=== PATIENT | female | born 1975 | race African-American/Black ===

== ENCOUNTER 2016-06-16 09:36 | Inpatient (IN) | payer OTHER ==
[~2016-06-16] VITALS: Ht 175.3 cm; Wt 94.4 kg
[~2016-06-16 09:36] MED LIST: ADVAIR 250/501 DISK IH; ADVAIR 500/501 DISK IH; ADVAIR HFA120 INHAL1 IH; ADVAIR HFA120 INHALA IH; AERONEB GO NEB1 EACH MC; ALBUTEROL INHALER; ALBUTEROL SULF8.5 GM IH; ALBUTEROL2.5 MG/3 M IH; ALPRAZOLAM0.25 M2 PO; AMOX TR-K CLV1 EAC4 PO; AMOXICILLIN500 M1 PO; ANAPROX DS550 M1 PO; ASPIR-TRIN325 M1 PO; ATARAX10 MG PO; AUGMENTIN875 MG PO; AZITHROMYCIN250 MG PO; AZITHROMYCIN500 M1 PO; BACTRIM,SEPT1 TABLET PO; BENZONATATE100 MG PO; CEFDINIR300 MG PO; CEFTIN500 MG PO; CEFUROXIME500 MG PO; CIPRO500 MG PO; CITRATE OF MAG296 ML PO; COLACE100 MG PO; DAILY VALUE1 EACH PO; DILAUDID2 MG PO; DOCUSATE SODIU100 MG PO; DOXYCYCLINE HY100 M3 PO; DUONEB 2.5-0.5 M3 ML AEROSOL; ENDOCET 5-3251 EACH PO; FERROCITE324 MG PO; FERROUS SULFAT325 MG PO; FLEXERIL10 MG PO; FLOMAX0.4 MG PO; FUROSEMIDE20 MG PO; GUAIFENESIN WI120 M1 PO; HYDROCODON-ACE1 EAC7 PO; HYDROXYZINE HCL10 MG PO; IRON325 M1 PO; IRON325 MG PO; KEFLEX500 MG PO; LEVAQUIN500 MG PO; LEVAQUIN750 MG PO; LEVOFLOXACIN750 MG PO; LISINOPRIL10 MG PO; LOPERAMIDE2 M1 PO; LORAZEPAM0.5 MG PO; LYRICA100 MG PO; LYRICA50 MG PO; MACROBID100 MG PO; MEDROL DOSEPAK4 MG PO; MELOXICAM15 MG PO; METFORMIN HCL500 M1 PO; METHADONE10 MG PO; MOBIC15 MG PO; MOTRIN800 MG PO; MULTIVITAMIN1 EAC2 PO; NAPROSYN500 MG PO; NAPROXEN500 MG PO; NARCAN4 MG NS; NICOTINE PATCH1 EAC1 TD; NORCO 7.5/321 TABLET PO; OXYCODONE HCL5 MG PO; OXYCODONE-ACET1 EACH PO; OxyCODONE PO; OxyCONTIN PO; PERCOCET 10/1 TABLET PO; PERCOCET 5/31 TABLET PO; PERCOCET 7.51 TABLET PO; PREDNISONE10 MG PO; PREDNISONE20 MG PO; PREDNISONE5 MG PO; PREDNISONE50 MG PO; PROAIR HFA8.5 GM IH; PROVENTIL,2.5 MG/0.5 IH; PROVENTIL,2.5 MG/3 M IH; PYRIDIUM100 MG PO; ROBITUSSIN DM118 ML PO; ROBITUSSIN100 MG/5 M PO; SERTRALINE HCL100 MG PO; SERTRALINE HCL50 MG PO; TESSALON200 MG PO; TIZANIDINE HCL4 M1 PO; TORADOL10 MG PO; TRAMADOL HCL50 MG PO; ULTRAM50 MG PO; VENTOLIN HFA18 GM IH; XANAX0.25 MG PO; ZANAFLEX4 M1 PO; ZITHROMAX Z-PA250 MG PO; ZITHROMAX250 MG PO; ZOFRAN ODT4 MG PO; ZOFRAN4 MG PO; ZOLOFT100 MG PO
[2016-06-16 10:18] LABS: HEMATOCRIT 35.1 % (36.0-46.0); MCHC 30.5 G/DL (30.0-36.0); MCV 85.2 FL (83-99); MEAN PLAT.VOLUME 11.8 uM^3 (9.5-12.4); PLATELET COUNT 234 K/uL (156-360); RBC DIS.WIDTH-CV 21.9 % (11.8-14.6); RBC DIS.WIDTH-SD 66.9 % (39-53); RED BLOOD COUNT 4.12 M/uL (3.80-5.20); WHITE BLOOD COUNT 4.9 K/uL (4.1-10.2)
[2016-06-16 10:20] LABS: BASOPHIL COUNT 0.1 K/uL (0-0.1); EOSINOPHIL (%) 3.5 % (0-5); EOSINOPHIL COUNT 0.2 K/uL (0-0.3); IMMATURE GRANULOCYTE (%) 0.2 % (0.0-0.7); IMMATURE GRANULOCYTE COUNT 0.1 K/uL; LYMPHOCYTE COUNT 0.9 K/uL (1.0-2.8); MONOCYTE (%) 10.4 % (3-12); MONOCYTE COUNT 0.5 K/uL (0-0.8); NEUTROPHIL COUNT 3.2 K/uL (1.8-6.4)
[2016-06-16 10:28] LABS: CHLORIDE 107 mEq/L (99-109); POTASSIUM 4.4 mEq/L (3.7-5.4); SODIUM 139 mEq/L (136-147)
[2016-06-16 10:29] LABS: MAGNESIUM 2.1 mg/dL (1.3-2.7)
[2016-06-16 10:30] LABS: GLUCOSE 98 mg/dL (70-99)
[2016-06-16 10:31] LABS: ANION GAP 8 MEQ/L (2-14)
[2016-06-16 10:32] LABS: PROTHROMBIN TIME 10.5 (9.2-11.2); PTT 32.4 (25-32)
[2016-06-16 10:34] LABS: GFR ESTIMATE (CALCULATED) > 59 mL/min/
[2016-06-16 10:35] LABS: UREA NITROGEN (BUN) 11 mg/dL (9-23)
[2016-06-16 10:43] LABS: TROP-I INTERPRETATION NEGATIVE; TROPONIN-I < 0.01 ng/mL (0.0-0.30)
[2016-06-16 12:17] LABS: INFLUENZA A VIRAL ANTIGEN NEGATIVE; INFLUENZA B VIRAL ANTIGEN NEGATIVE
[2016-06-16] MEDS ORDERED: PERCOCET 10/1 TABLET PO (13:09)
[2016-06-16] MEDS ORDERED: ADVAIR 250/501 DISK IH (13:09)
[2016-06-16 15:55] VITALS: BP 144/76
[2016-06-17] VITALS: BP 122/72
[2016-06-17 07:30] LABS: ANION GAP 6 MEQ/L (2-14); CHLORIDE 106 MEQ/L (99-109); GFR ESTIMATE (CALCULATED) > 59 mL/min/; GLUCOSE 117 mg/dL (70-99); SAMPLE HEMOLYSIS CHECK 0; SAMPLE ICTERIC CHECK 0; SAMPLE LIPEMIA CHECK 0; SODIUM 138 MEQ/L (136-147); UREA NITROGEN (BUN) 14 mg/dL (9-23)
[2016-06-17 07:43] LABS: HEMATOCRIT 36.1 % (36.0-46.0); MCH 26.2 PG (29.0-34.0); MCHC 30.5 G/DL (30.0-36.0); RBC DIS.WIDTH-CV 21.5 % (11.8-14.6); RBC DIS.WIDTH-SD 68.6 % (39-53)
[2016-06-17 07:44] LABS: WHITE BLOOD COUNT 2.8 K/uL (4.1-10.2)
[2016-06-17 08:00] VITALS: BP 131/67
[2016-06-17 08:04] LABS: MEAN PLAT.VOLUME 12.4 uM^3 (9.5-12.4); PLATELET COUNT 269 K/uL (156-360)
[2016-06-17 16:00] VITALS: BP 126/72
[2016-06-18] VITALS: BP 148/80
[2016-06-18 07:25] LABS: ANION GAP 7 MEQ/L (2-14); CHLORIDE 105 MEQ/L (99-109); GFR ESTIMATE (CALCULATED) > 59 mL/min/; GLUCOSE 133 mg/dL (70-99); POTASSIUM 4.4 MEQ/L (3.7-5.4); SAMPLE HEMOLYSIS CHECK 0; SAMPLE ICTERIC CHECK 0; SAMPLE LIPEMIA CHECK 0; SODIUM 138 MEQ/L (136-147); UREA NITROGEN (BUN) 17 mg/dL (9-23)
[2016-06-18 07:40] VITALS: BP 126/71
[2016-06-18 07:58] LABS: HEMATOCRIT 33.8 % (36.0-46.0); MCH 26.1 PG (29.0-34.0); MCHC 30.5 G/DL (30.0-36.0); MCV 85.8 FL (83-99); RBC DIS.WIDTH-CV 21.4 % (11.8-14.6); RBC DIS.WIDTH-SD 68.1 % (39-53); RED BLOOD COUNT 3.94 M/uL (3.80-5.20); WHITE BLOOD COUNT 14.8 K/uL (4.1-10.2)
[2016-06-18 08:12] LABS: MEAN PLAT.VOLUME 11.5 uM^3 (9.5-12.4); PLATELET COUNT 290 K/uL (156-360)
[2016-06-18 15:20] VITALS: BP 130/65
[2016-06-19 01:08] VITALS: BP 131/84
[2016-06-19 05:56] VITALS: BP 131/84
[2016-06-19 07:36] LABS: ANION GAP 7 MEQ/L (2-14); CHLORIDE 105 MEQ/L (99-109); GFR ESTIMATE (CALCULATED) > 59 mL/min/; GLUCOSE 106 mg/dL (70-99); POTASSIUM 4.2 MEQ/L (3.7-5.4); SAMPLE HEMOLYSIS CHECK 0; SAMPLE ICTERIC CHECK 0; SAMPLE LIPEMIA CHECK 0; SODIUM 140 MEQ/L (136-147); UREA NITROGEN (BUN) 18 mg/dL (9-23)
[2016-06-19 08:07] LABS: HEMATOCRIT 31.3 % (36.0-46.0); MCH 26.3 PG (29.0-34.0); MCV 84.8 FL (83-99); MEAN PLAT.VOLUME 12.1 uM^3 (9.5-12.4); PLATELET COUNT 282 K/uL (156-360); RBC DIS.WIDTH-CV 21.2 % (11.8-14.6); RBC DIS.WIDTH-SD 66.2 % (39-53); RED BLOOD COUNT 3.69 M/uL (3.80-5.20); WHITE BLOOD COUNT 12.6 K/uL (4.1-10.2)
[2016-06-19] MEDS ORDERED: NICOTINE PATCH1 EAC1 TD (09:23)
[2016-06-19] MEDS ORDERED: PREDNISONE20 MG PO (09:23)
[2016-06-19] MEDS ORDERED: BENZONATATE100 MG PO (09:23)
[2016-06-19] MEDS ORDERED: MONTELUKAST SOD10 MG PO (09:23)
== END 2016-06-19 13:30 | disposition home health service (06) | DRG 189 ==
LOC: EME → EDBD 09:36 → 5SOUTH 13:36 → EDOF 13:36 → 5SOUTH 15:08
PROVIDERS: Emergency Medicine; Internal Medicine; Physician Assistant
DX: J96.21 Acute and chronic respiratory failure with hypoxia (principal); J44.0 Chronic obstructive pulmonary disease with (acute) lower respiratory infection; J44.1 Chronic obstructive pulmonary disease with (acute) exacerbation; F33.9 Major depressive disorder, recurrent, unspecified; J45.41 Moderate persistent asthma with (acute) exacerbation; Z99.81 Dependence on supplemental oxygen; F17.210 Nicotine dependence, cigarettes, uncomplicated; D86.9 Sarcoidosis, unspecified; J20.8 Acute bronchitis due to other specified organisms; F41.9 Anxiety disorder, unspecified; I10 Essential (primary) hypertension; D64.9 Anemia, unspecified
CPT/HCPCS: 71010; 80048; 83735; 84484; 85025; 85027; 85610; 85730; 87040; 87502; 93005; 94640; 94640 76; 94799; 99202; 99281; 99285; J0456; J0696; J1644; J2270; J2930; J7050; J7512

== ENCOUNTER 2016-07-10 23:22 | Inpatient (IN) | payer OTHER ==
[~2016-07-10] VITALS: Ht 172.7 cm; Wt 97.7 kg
[~2016-07-10 23:22] MED LIST changes: +MONTELUKAST SOD10 MG PO
[2016-07-10 23:51] LABS: HEMATOCRIT 30.2 % (36.0-46.0); MCH 26.6 PG (29.0-34.0); MCHC 31.1 G/DL (30.0-36.0); MCV 85.6 FL (83-99); MEAN PLAT.VOLUME 10.7 uM^3 (9.5-12.4); PLATELET COUNT 266 K/uL (156-360); RBC DIS.WIDTH-CV 19.4 % (11.8-14.6); RBC DIS.WIDTH-SD 59.4 % (39-53); RED BLOOD COUNT 3.53 M/uL (3.80-5.20)
[2016-07-10 23:57] LABS: WHITE BLOOD COUNT 7.3 K/uL (4.1-10.2)
[2016-07-10 23:58] LABS: CHLORIDE 107 mEq/L (99-109); POTASSIUM 4.5 mEq/L (3.7-5.4); SODIUM 140 mEq/L (136-147)
[2016-07-11 00:01] LABS: GLUCOSE 76 mg/dL (70-99)
[2016-07-11 00:02] LABS: ANION GAP 7 MEQ/L (2-14)
[2016-07-11 00:03] LABS: TOTAL BILIRUBIN 0.4 mg/dL (0.0-1.0)
[2016-07-11 00:04] LABS: ALKALINE PHOSPHATASE 105 IU/L (3-129); GFR ESTIMATE (CALCULATED) > 59 mL/min/
[2016-07-11 00:05] LABS: UREA NITROGEN (BUN) 11 mg/dL (9-23)
[2016-07-11 00:08] LABS: TROP-I INTERPRETATION NEGATIVE; TROPONIN-I < 0.01 ng/mL (0.0-0.30)
[2016-07-11 00:13] LABS: QUANTITATIVE HCG < 4.0 MIU/ML
[2016-07-11 00:38] LABS: ANISOCYTOSIS 1+; HEMATOLOGY COMMENT 1 REV; MACROCYTES 1+; OVALOCYTES FEW; PLAT.SUFFICIENCY ADEQUATE
[2016-07-11 00:39] LABS: EOSINOPHIL (%) 3.4 % (0-5); EOSINOPHIL COUNT 0.3 K/uL (0-0.3); IMMATURE GRANULOCYTE (%) 0.1 % (0.0-0.7); IMMATURE GRANULOCYTE COUNT 0.1 K/uL; LYMPHOCYTE COUNT 1.8 K/uL (1.0-2.8); MONOCYTE (%) 13.2 % (3-12); NEUTROPHIL (%) 57.7 % (45-76); NEUTROPHIL COUNT 4.2 K/uL (1.8-6.4)
[2016-07-11 01:40] LABS: INFLUENZA A VIRAL ANTIGEN NEGATIVE; INFLUENZA B VIRAL ANTIGEN NEGATIVE
[2016-07-11 05:02] VITALS: BP 131/75
[2016-07-11 11:36] VITALS: BP 132/72
[2016-07-11 15:50] VITALS: BP 138/83
[2016-07-11 21:30] VITALS: BP 125/69
[2016-07-12 04:39] VITALS: BP 133/76
[2016-07-12 08:15] VITALS: BP 136/93
[2016-07-12] MEDS ORDERED: GUAIFENESIN WI120 M1 PO (10:27)
[2016-07-12] MEDS ORDERED: LEVOFLOXACIN750 MG PO (10:27)
[2016-07-12] MEDS ORDERED: PREDNISONE20 MG PO (10:27)
[2016-07-12 11:16] LABS: ANION GAP 10 MEQ/L (2-14); CHLORIDE 105 MEQ/L (99-109); GFR ESTIMATE (CALCULATED) > 59 mL/min/; SAMPLE HEMOLYSIS CHECK 0; SAMPLE ICTERIC CHECK 0; SAMPLE LIPEMIA CHECK 0; SODIUM 138 MEQ/L (136-147); UREA NITROGEN (BUN) 13 mg/dL (9-23)
[2016-07-12 11:18] LABS: GLUCOSE 119 mg/dL (70-99)
[2016-07-12] MEDS ORDERED: PROVENTIL,2.5 MG/3 M IH (11:18)
[2016-07-12 11:21] LABS: HEMATOCRIT 35.3 % (36.0-46.0); MCH 26.7 PG (29.0-34.0); MCHC 31.7 G/DL (30.0-36.0); MCV 84.2 FL (83-99); RBC DIS.WIDTH-CV 19.1 % (11.8-14.6); RBC DIS.WIDTH-SD 59.3 % (39-53); RED BLOOD COUNT 4.19 M/uL (3.80-5.20); WHITE BLOOD COUNT 14.5 K/uL (4.1-10.2)
[2016-07-12 11:35] LABS: MEAN PLAT.VOLUME 11.8 uM^3 (9.5-12.4); PLATELET COUNT 327 K/uL (156-360)
[2016-07-12 12:12] VITALS: BP 150/85
== END 2016-07-12 12:10 | disposition home or self-care (01) | DRG 191 ==
LOC: EME 23:22 → EDOF 07-11 02:14 → 5WEST 07-11 02:14
PROVIDERS: Emergency Medicine; Physician Assistant
DX: J44.0 Chronic obstructive pulmonary disease with (acute) lower respiratory infection (principal); J96.11 Chronic respiratory failure with hypoxia; Z99.81 Dependence on supplemental oxygen; J44.1 Chronic obstructive pulmonary disease with (acute) exacerbation; J20.9 Acute bronchitis, unspecified; I10 Essential (primary) hypertension; D50.9 Iron deficiency anemia, unspecified; D86.9 Sarcoidosis, unspecified; F17.210 Nicotine dependence, cigarettes, uncomplicated
CPT/HCPCS: 71020; 80048; 80053; 83880; 84484; 84702; 85025; 85027; 87070; 87205; 87502; 93005; 94640; 94640 76; 94799; 99202; 99281; 99285; J1644; J2930; J3010; J7030; J7512; J7644

== ENCOUNTER 2016-07-23 11:24 | Inpatient (IN) | payer OTHER ==
[~2016-07-23] VITALS: Ht 170.2 cm; Wt 96.0 kg
[2016-07-23 11:34] LABS: BASE EXCESS 1.9 mEq/L (-3 to +3); BICARBONATE 26.6 mEq/L (22-26); CARBOXY HGB 3.8 % (0-5); COMMENTS - BLOOD GASES A=C+; DEVICE NRBM; METHEMOGLOBIN 0.9 % (0-1.5); O2 FLOW 15 L/MIN; PCO2 41 mm Hg (35-45); PO2 389 mm Hg (80-100); SITE RR; pH 7.42 (7.35-7.45)
[2016-07-23 11:51] LABS: BASOPHIL COUNT 0.1 K/uL (0-0.1); EOSINOPHIL (%) 3.1 % (0-5); EOSINOPHIL COUNT 0.2 K/uL (0-0.3); HEMATOCRIT 27.6 % (36.0-46.0); LYMPHOCYTE COUNT 1.5 K/uL (1.0-2.8); MCH 25.4 PG (29.0-34.0); MCHC 30.1 G/DL (30.0-36.0); MCV 84.4 FL (83-99); MEAN PLAT.VOLUME 9.9 uM^3 (9.5-12.4); MONOCYTE (%) 12.2 % (3-12); MONOCYTE COUNT 0.6 K/uL (0-0.8); NEUTROPHIL (%) 53.7 % (45-76); NEUTROPHIL COUNT 2.6 K/uL (1.8-6.4); PLATELET COUNT 239 K/uL (156-360); RBC DIS.WIDTH-CV 19.4 % (11.8-14.6); RED BLOOD COUNT 3.27 M/uL (3.80-5.20); WHITE BLOOD COUNT 4.9 K/uL (4.1-10.2)
[2016-07-23 11:52] LABS: CHLORIDE 111 mEq/L (99-109); SODIUM 144 mEq/L (136-147)
[2016-07-23 11:54] LABS: GLUCOSE 97 mg/dL (70-99)
[2016-07-23 11:55] LABS: ANION GAP 5 MEQ/L (2-14)
[2016-07-23 11:58] LABS: GFR ESTIMATE (CALCULATED) > 59 mL/min/
[2016-07-23 11:59] LABS: UREA NITROGEN (BUN) 13 mg/dL (9-23)
[2016-07-23] MEDS ORDERED: CRANBERRY405 MG PO (13:09)
[2016-07-23] MEDS ORDERED: SEROQUEL12.5 MG PO (13:10)
[2016-07-23] MEDS ORDERED: METOPROLOL TART50 MG PO (13:10)
[2016-07-23] MEDS ORDERED: RANITIDINE HCL150 MG PO (13:11)
[2016-07-23] MEDS ORDERED: ALMACONE-2 LIQ355 ML PO (13:11)
[2016-07-23] MEDS ORDERED: HUMALOG100 UNIT/2 SC (13:13)
[2016-07-23] MEDS ORDERED: GAS RELIEF 8080 MG PO (13:13)
[2016-07-23] MEDS ORDERED: LEVOXYL125 MCG PO (13:14)
[2016-07-23] MEDS ORDERED: OMEPRAZOLE20 MG PO (13:14)
[2016-07-23] MEDS ORDERED: BUSPIRONE HCL5 MG PO (13:14)
[2016-07-23] MEDS ORDERED: OXYBUTYNIN CHLO10 MG PO (13:15)
[2016-07-23] MEDS ORDERED: ASPIRIN81 M2 PO (13:15)
[2016-07-23] MEDS ORDERED: CRESTOR10 MG PO (13:15)
[2016-07-23] MEDS ORDERED: OXYCODONE-APAP1 EACH PO (13:59)
[2016-07-23] MEDS ORDERED: SERTRALINE HCL100 MG PO (13:59)
[2016-07-23] MEDS ORDERED: ALBUTEROL2.5 MG/3 M IH (14:00)
[2016-07-23] MEDS ORDERED: LISINOPRIL10 MG PO (14:00)
[2016-07-23 15:00] LABS: IRON 13 MCG/DL (35-150); SAMPLE HEMOLYSIS CHECK 0; SAMPLE ICTERIC CHECK 0; SAMPLE LIPEMIA CHECK 1
[2016-07-23 15:42] LABS: INFLUENZA A VIRAL ANTIGEN NEGATIVE; INFLUENZA B VIRAL ANTIGEN NEGATIVE
[2016-07-23 15:58] LABS: FERRITIN 17 NG/ML (10-291)
[2016-07-23 16:21] LABS: ABSOLUTE RETICULOCYTE CT. 0.04 M/uL (0.02-0.08); RETICULOCYTE COUNT 1.2 % (0.5-1.8)
[2016-07-23 16:53] LABS: HEMATOLOGY COMMENT 1 SMEAR COMPATIBLE; PLAT.SUFFICIENCY ADEQUATE; USER ID NPD
[2016-07-23 18:43] VITALS: BP 136/70
[2016-07-23 23:34] VITALS: BP 138/74
[2016-07-23 23:40] VITALS: BP 131/69
[2016-07-24 03:26] VITALS: BP 121/69
[2016-07-24 07:25] VITALS: BP 129/76
[2016-07-24 08:41] LABS: EOSINOPHIL (%) 0 % (0-5); HEMATOCRIT 28.1 % (36.0-46.0); IMMATURE GRANULOCYTE (%) 0.2 % (0.0-0.7); IMMATURE GRANULOCYTE COUNT 0.2 K/uL; LYMPHOCYTE COUNT 0.9 K/uL (1.0-2.8); MCH 25.4 PG (29.0-34.0); MCHC 30.6 G/DL (30.0-36.0); MCV 82.9 FL (83-99); MEAN PLAT.VOLUME 11.7 uM^3 (9.5-12.4); MONOCYTE (%) 0.8 % (3-12); MONOCYTE COUNT 0.1 K/uL (0-0.8); NEUTROPHIL (%) 88.6 % (45-76); NEUTROPHIL COUNT 8.1 K/uL (1.8-6.4); PLATELET COUNT 228 K/uL (156-360); RBC DIS.WIDTH-CV 19.3 % (11.8-14.6); RBC DIS.WIDTH-SD 56.1 % (39-53); RED BLOOD COUNT 3.39 M/uL (3.80-5.20)
[2016-07-24 08:43] LABS: ALKALINE PHOSPHATASE 82 IU/L (3-129); ANION GAP 7 MEQ/L (2-14); CHLORIDE 106 MEQ/L (99-109); GFR ESTIMATE (CALCULATED) > 59 mL/min/; GLUCOSE 143 mg/dL (70-99); POTASSIUM 4.5 MEQ/L (3.7-5.4); SAMPLE HEMOLYSIS CHECK 0; SAMPLE ICTERIC CHECK 0; SAMPLE LIPEMIA CHECK 0; SODIUM 138 MEQ/L (136-147); TOTAL BILIRUBIN 0.3 MG/DL (0.0-1.0); UREA NITROGEN (BUN) 12 mg/dL (9-23); WHITE BLOOD COUNT 9.1 K/uL (4.1-10.2)
[2016-07-24 11:48] VITALS: BP 135/67
[2016-07-24 15:34] VITALS: BP 131/75
[2016-07-24 19:15] VITALS: BP 139/73
[2016-07-24 22:48] VITALS: BP 125/70
[2016-07-25 03:29] VITALS: BP 139/91
[2016-07-25 07:35] LABS: ANION GAP 8 MEQ/L (2-14); CHLORIDE 106 MEQ/L (99-109); POTASSIUM 4.6 MEQ/L (3.7-5.4); SAMPLE HEMOLYSIS CHECK 0; SAMPLE ICTERIC CHECK 0; SAMPLE LIPEMIA CHECK 0; SODIUM 139 MEQ/L (136-147)
[2016-07-25 07:41] LABS: GFR ESTIMATE (CALCULATED) > 59 mL/min/; GLUCOSE 115 mg/dL (70-99); UREA NITROGEN (BUN) 18 mg/dL (9-23)
[2016-07-25 07:57] LABS: EOSINOPHIL (%) 0 % (0-5); HEMATOCRIT 27.6 % (36.0-46.0); IMMATURE GRANULOCYTE (%) 0.3 % (0.0-0.7); IMMATURE GRANULOCYTE COUNT 0.1 K/uL; LYMPHOCYTE COUNT 1.2 K/uL (1.0-2.8); MCH 25.5 PG (29.0-34.0); MCHC 31.2 G/DL (30.0-36.0); MCV 81.9 FL (83-99); MEAN PLAT.VOLUME 10.8 uM^3 (9.5-12.4); MONOCYTE (%) 1.8 % (3-12); MONOCYTE COUNT 0.4 K/uL (0-0.8); NEUTROPHIL (%) 92.1 % (45-76); NEUTROPHIL COUNT 18.4 K/uL (1.8-6.4); PLATELET COUNT 231 K/uL (156-360); RBC DIS.WIDTH-CV 19.7 % (11.8-14.6); RED BLOOD COUNT 3.37 M/uL (3.80-5.20)
[2016-07-25 08:45] VITALS: BP 130/75
[2016-07-25 12:24] VITALS: BP 130/81
[2016-07-25 16:35] VITALS: BP 127/82
[2016-07-25 19:35] VITALS: BP 128/71
[2016-07-25 23:31] VITALS: BP 127/66
[2016-07-26 03:15] VITALS: BP 136/79
[2016-07-26 06:28] LABS: HEMATOCRIT 28.8 % (36.0-46.0); MCH 25.4 PG (29.0-34.0); MCHC 30.6 G/DL (30.0-36.0); PLATELET COUNT 276 K/uL (156-360); RBC DIS.WIDTH-CV 20.3 % (11.8-14.6); RBC DIS.WIDTH-SD 60.6 % (39-53); RED BLOOD COUNT 3.47 M/uL (3.80-5.20); WHITE BLOOD COUNT 16.3 K/uL (4.1-10.2)
[2016-07-26 06:37] LABS: EOSINOPHIL (%) 0 % (0-5); IMMATURE GRANULOCYTE (%) 0.4 % (0.0-0.7); IMMATURE GRANULOCYTE COUNT 0.1 K/uL; LYMPHOCYTE COUNT 1.2 K/uL (1.0-2.8); MONOCYTE (%) 4.2 % (3-12); MONOCYTE COUNT 0.7 K/uL (0-0.8); NEUTROPHIL COUNT 14.3 K/uL (1.8-6.4)
[2016-07-26 07:04] LABS: ANION GAP 3 MEQ/L (2-14); CHLORIDE 105 MEQ/L (99-109); GFR ESTIMATE (CALCULATED) > 59 mL/min/; GLUCOSE 101 mg/dL (70-99); POTASSIUM 4.6 MEQ/L (3.7-5.4); SAMPLE HEMOLYSIS CHECK 0; SAMPLE ICTERIC CHECK 0; SAMPLE LIPEMIA CHECK 0; SODIUM 138 MEQ/L (136-147); UREA NITROGEN (BUN) 14 mg/dL (9-23)
[2016-07-26 08:30] VITALS: BP 140/80
[2016-07-26] MEDS ORDERED: ADVAIR HFA120 INHALA IH (10:53)
[2016-07-26] MEDS ORDERED: SPIRIVA RESPIMAT4 GM IH (10:53)
[2016-07-26] MEDS ORDERED: PREDNISONE10 MG PO (10:53)
[2016-07-26] MEDS ORDERED: MONTELUKAST SOD10 MG PO (10:53)
[2016-07-26] MEDS ORDERED: FERROUS SULFAT325 MG PO (10:53)
[2016-07-26] MEDS ORDERED: AUGMENTIN500 MG PO (10:53)
[2016-07-26] MEDS ORDERED: LISINOPRIL10 MG PO (11:25)
== END 2016-07-26 14:53 | disposition home or self-care (01) | DRG 190 ==
LOC: EME → EDBD 11:24 → 2EAST 14:04 → EDOF 14:04 → 2EAST 18:15
PROVIDERS: Emergency Medicine; Hospitalist; Internal Medicine
DX: J44.0 Chronic obstructive pulmonary disease with (acute) lower respiratory infection (principal); J96.21 Acute and chronic respiratory failure with hypoxia; J45.51 Severe persistent asthma with (acute) exacerbation; J98.11 Atelectasis; J20.9 Acute bronchitis, unspecified; I10 Essential (primary) hypertension; D50.9 Iron deficiency anemia, unspecified; D86.0 Sarcoidosis of lung; F17.210 Nicotine dependence, cigarettes, uncomplicated; R59.1 Generalized enlarged lymph nodes; Z99.81 Dependence on supplemental oxygen; Z88.5 Allergy status to narcotic agent
CPT/HCPCS: 36600; 71010; 71275; 80048; 80053; 82607; 82728; 82746; 82803; 83540; 83735; 84466; 85025; 85045; 87070; 87205; 87502; 93005; 94640; 94640 76; 94644; 94760; 94799; 99202; 99281; 99285; J0456; J0696; J1100; J1644; J2405; J2920; J2930; J7050; J7644

== ENCOUNTER 2016-07-29 11:08 | Emergency (ER) | payer OTHER ==
[~2016-07-29] VITALS: Ht 172.7 cm; Wt 95.5 kg
[~2016-07-29 11:08] MED LIST changes: +ALMACONE-2 LIQ355 ML PO; +ASPIRIN81 M2 PO; +AUGMENTIN500 MG PO; +BUSPIRONE HCL5 MG PO; +CRANBERRY405 MG PO; +CRESTOR10 MG PO; +GAS RELIEF 8080 MG PO; +HUMALOG100 UNIT/2 SC; +LEVOXYL125 MCG PO; +METOPROLOL TART50 MG PO; +OMEPRAZOLE20 MG PO; +OXYBUTYNIN CHLO10 MG PO; +OXYCODONE-APAP1 EACH PO; +RANITIDINE HCL150 MG PO; +SEROQUEL12.5 MG PO; +SPIRIVA RESPIMAT4 GM IH
[2016-07-29 12:00] LABS: CARBON DIOXIDE (BICARBONATE) 32.5 MEQ/L (20-31)
[2016-07-29 12:03] LABS: HEMATOCRIT 29.8 % (36.0-46.0); MCH 25.8 PG (29.0-34.0); MCHC 30.5 G/DL (30.0-36.0); MCV 84.4 FL (83-99); MEAN PLAT.VOLUME 10.8 uM^3 (9.5-12.4); PLATELET COUNT 250 K/uL (156-360); RBC DIS.WIDTH-CV 20.4 % (11.8-14.6); RBC DIS.WIDTH-SD 60.5 % (39-53); RED BLOOD COUNT 3.53 M/uL (3.80-5.20)
[2016-07-29 12:08] LABS: CHLORIDE 105 mEq/L (99-109); POTASSIUM 3.9 mEq/L (3.7-5.4); SODIUM 139 mEq/L (136-147)
[2016-07-29 12:11] LABS: GLUCOSE 92 mg/dL (70-99)
[2016-07-29 12:12] LABS: ANION GAP 6 MEQ/L (2-14)
[2016-07-29 12:13] LABS: TOTAL BILIRUBIN 0.7 mg/dL (0.0-1.0)
[2016-07-29 12:14] LABS: ALKALINE PHOSPHATASE 92 IU/L (3-129); GFR ESTIMATE (CALCULATED) > 59 mL/min/
[2016-07-29 12:27] LABS: UREA NITROGEN (BUN) 22 mg/dL (9-23); WHITE BLOOD COUNT 8.1 K/uL (4.1-10.2)
[2016-07-29 16:22] LABS: INFLUENZA A VIRAL ANTIGEN NEGATIVE; INFLUENZA B VIRAL ANTIGEN POSITIVE
[2016-07-29] MEDS ORDERED: TRAMADOL HCL50 MG PO (16:43)
[2016-07-29] MEDS ORDERED: DOXYCYCLINE HY100 MG PO (16:43)
[2016-07-29] MEDS ORDERED: TESSALON PERLE100 MG PO (16:43)
[2016-07-29 17:30] VITALS: BP 125/75
== END 2016-07-29 17:31 | disposition home or self-care (01) ==
LOC: EME → EDBD 11:08 → EME 11:08
PROVIDERS: Nurse Practitioner Family
DX: J10.1 Influenza due to other identified influenza virus with other respiratory manifestations (principal); J44.1 Chronic obstructive pulmonary disease with (acute) exacerbation; J45.909 Unspecified asthma, uncomplicated; Z99.81 Dependence on supplemental oxygen; Z87.891 Personal history of nicotine dependence; E83.51 Hypocalcemia
CPT/HCPCS: 71020; 80053; 82803; 85027; 87502; 94640; 94640 76; 99281; 99283; J7512; J7644

== ENCOUNTER 2016-08-06 04:24 | Emergency (ER) | payer OTHER ==
[~2016-08-06] VITALS: Ht 172.7 cm; Wt 103.3 kg
[~2016-08-06 04:24] MED LIST changes: +DOXYCYCLINE HY100 MG PO; +TESSALON PERLE100 MG PO
[2016-08-06] MEDS ORDERED: MEDROL DOSEPAK4 MG PO (05:46)
[2016-08-06 06:19] VITALS: BP 132/86
== END 2016-08-06 06:20 | disposition home or self-care (01) ==
LOC: EME 04:24
DX: J45.901 Unspecified asthma with (acute) exacerbation (principal); J44.9 Chronic obstructive pulmonary disease, unspecified; D86.9 Sarcoidosis, unspecified; F17.200 Nicotine dependence, unspecified, uncomplicated
CPT/HCPCS: 94640; 99281; 99284; J7512; J7644

== ENCOUNTER 2016-08-22 01:19 | Inpatient (IN) | payer OTHER ==
[~2016-08-22] VITALS: Ht 172.7 cm; Wt 95.8 kg
[2016-08-22 01:45] LABS: BASE EXCESS 3.8 mEq/L (-3 to +3); BICARBONATE 27.7 mEq/L (22-26); CARBOXY HGB 2.6 % (0-5); COMMENTS - BLOOD GASES A+C+; METHEMOGLOBIN 0.9 % (0-1.5); O2 FLOW 2 L/MIN; PCO2 38 mm Hg (35-45); PO2 57 mm Hg (80-100); SITE RR; pH 7.47 (7.35-7.45)
[2016-08-22 01:46] LABS: DEVICE NC; TOTAL RESP RATE 22 resp/min
[2016-08-22 01:48] LABS: HEMATOCRIT 31.6 % (36.0-46.0); MCH 24.4 PG (29.0-34.0); MCHC 29.7 G/DL (30.0-36.0); MCV 82.1 FL (83-99); MEAN PLAT.VOLUME 10.6 uM^3 (9.5-12.4); PLATELET COUNT 281 K/uL (156-360); RBC DIS.WIDTH-CV 18.6 % (11.8-14.6); RBC DIS.WIDTH-SD 55.1 % (39-53); RED BLOOD COUNT 3.85 M/uL (3.80-5.20)
[2016-08-22 01:50] LABS: WHITE BLOOD COUNT 5.1 K/uL (4.1-10.2)
[2016-08-22 01:57] LABS: CHLORIDE 108 mEq/L (99-109); POTASSIUM 3.5 mEq/L (3.7-5.4); SODIUM 141 mEq/L (136-147)
[2016-08-22 01:59] LABS: GLUCOSE 90 mg/dL (70-99)
[2016-08-22 02:00] LABS: ANION GAP 8 MEQ/L (2-14)
[2016-08-22 02:01] LABS: TOTAL BILIRUBIN 0.3 mg/dL (0.0-1.0)
[2016-08-22 02:02] LABS: ALKALINE PHOSPHATASE 109 IU/L (3-129)
[2016-08-22 02:03] LABS: GFR ESTIMATE (CALCULATED) > 59 mL/min/
[2016-08-22 02:04] LABS: UREA NITROGEN (BUN) 12 mg/dL (9-23)
[2016-08-22 02:08] LABS: TROP-I INTERPRETATION NEGATIVE; TROPONIN-I 0.02 ng/mL (0.0-0.30)
[2016-08-22 04:33] LABS: BASE EXCESS 0.3 mEq/L (-3 to +3); BICARBONATE 25.4 mEq/L (22-26); CARBOXY HGB 1.9 % (0-5); PCO2 42 mm Hg (35-45); PO2 157 mm Hg (80-100); SITE RR; pH 7.39 (7.35-7.45)
[2016-08-22 04:34] LABS: COMMENTS - BLOOD GASES A+C+; DEVICE HHFNC; FI02 60 %; O2 FLOW 30 L/MIN; TOTAL RESP RATE 20 resp/min
[2016-08-22 05:55] VITALS: BP 140/97
[2016-08-22 07:34] LABS: TROP-I INTERPRETATION NEGATIVE; TROPONIN-I < 0.01 ng/mL (0.0-0.30)
[2016-08-22 08:10] VITALS: BP 144/76
[2016-08-22] MEDS ORDERED: FERROUS SULFAT325 MG PO (10:58)
[2016-08-22] MEDS ORDERED: ADVAIR HFA120 INHALA IH (11:05)
[2016-08-22 11:43] LABS: TROP-I INTERPRETATION NEGATIVE; TROPONIN-I 0.01 ng/mL (0.0-0.30)
[2016-08-22 12:01] VITALS: BP 145/82
[2016-08-22 16:56] VITALS: BP 139/86
[2016-08-22 19:00] VITALS: BP 132/86
[2016-08-23] VITALS: BP 120/68
[2016-08-23 04:00] VITALS: BP 128/86
[2016-08-23 07:02] LABS: EOSINOPHIL (%) 0 % (0-5); HEMATOCRIT 30.6 % (36.0-46.0); IMMATURE GRANULOCYTE (%) 0.6 % (0.0-0.7); IMMATURE GRANULOCYTE COUNT 0.1 K/uL; INSTRUMENT ABS NEUTROPHIL CT 12.3 K/uL; LYMPHOCYTE COUNT 1.2 K/uL (1.0-2.8); MCH 24.3 PG (29.0-34.0); MCHC 29.7 G/DL (30.0-36.0); MCV 81.8 FL (83-99); MEAN PLAT.VOLUME 11.3 uM^3 (9.5-12.4); MONOCYTE (%) 1.3 % (3-12); MONOCYTE COUNT 0.2 K/uL (0-0.8); NEUTROPHIL (%) 89.2 % (45-76); NEUTROPHIL COUNT 12.3 K/uL (1.8-6.4); PLATELET COUNT 340 K/uL (156-360); RBC DIS.WIDTH-CV 18.5 % (11.8-14.6); RBC DIS.WIDTH-SD 55.4 % (39-53); RED BLOOD COUNT 3.74 M/uL (3.80-5.20)
[2016-08-23 07:06] LABS: WHITE BLOOD COUNT 13.8 K/uL (4.1-10.2)
[2016-08-23 07:09] LABS: ANION GAP 7 MEQ/L (2-14); CHLORIDE 106 MEQ/L (99-109); GFR ESTIMATE (CALCULATED) > 59 mL/min/; GLUCOSE 128 mg/dL (70-99); SAMPLE HEMOLYSIS CHECK 0; SAMPLE ICTERIC CHECK 0; SAMPLE LIPEMIA CHECK 0; SODIUM 139 MEQ/L (136-147); UREA NITROGEN (BUN) 11 mg/dL (9-23)
[2016-08-23 07:16] LABS: POTASSIUM 4.5 MEQ/L (3.7-5.4)
[2016-08-23 08:15] VITALS: BP 134/88
[2016-08-23 08:24] LABS: ALKALINE PHOSPHATASE 87 IU/L (3-129); TOTAL BILIRUBIN 0.4 MG/DL (0.0-1.0)
[2016-08-23 15:52] VITALS: BP 126/70
[2016-08-23 19:00] VITALS: BP 142/78
[2016-08-23 23:51] VITALS: BP 135/78
[2016-08-24 04:43] VITALS: BP 146/83
[2016-08-24 08:00] VITALS: BP 116/58
[2016-08-24 08:17] LABS: EOSINOPHIL (%) 0 % (0-5); HEMATOCRIT 32.4 % (36.0-46.0); IMMATURE GRANULOCYTE (%) 0.9 % (0.0-0.7); IMMATURE GRANULOCYTE COUNT 0.2 K/uL; INSTRUMENT ABS NEUTROPHIL CT 15.2 K/uL; LYMPHOCYTE COUNT 1.1 K/uL (1.0-2.8); MCH 24.3 PG (29.0-34.0); MCHC 29.6 G/DL (30.0-36.0); MEAN PLAT.VOLUME 11.6 uM^3 (9.5-12.4); MONOCYTE (%) 2.4 % (3-12); MONOCYTE COUNT 0.4 K/uL (0-0.8); NEUTROPHIL (%) 89.9 % (45-76); NEUTROPHIL COUNT 15.2 K/uL (1.8-6.4); PLATELET COUNT 423 K/uL (156-360); RBC DIS.WIDTH-CV 18.6 % (11.8-14.6); RBC DIS.WIDTH-SD 55.7 % (39-53); RED BLOOD COUNT 3.95 M/uL (3.80-5.20); WHITE BLOOD COUNT 16.9 K/uL (4.1-10.2)
[2016-08-24 08:39] LABS: ANION GAP 9 MEQ/L (2-14); CHLORIDE 104 MEQ/L (99-109); GFR ESTIMATE (CALCULATED) > 59 mL/min/; GLUCOSE 105 mg/dL (70-99); POTASSIUM 4.1 MEQ/L (3.7-5.4); SAMPLE HEMOLYSIS CHECK 0; SAMPLE ICTERIC CHECK 0; SAMPLE LIPEMIA CHECK 0; SODIUM 139 MEQ/L (136-147); UREA NITROGEN (BUN) 20 mg/dL (9-23)
[2016-08-24] MEDS ORDERED: AZITHROMYCIN500 M1 PO (11:12)
[2016-08-24] MEDS ORDERED: CEFTIN500 MG PO (11:12)
[2016-08-24] MEDS ORDERED: PREDNISONE10 MG PO (11:12)
[2016-08-24] MEDS ORDERED: ALPRAZOLAM0.25 M2 PO (11:12)
[2016-08-24 12:00] VITALS: BP 120/56
== END 2016-08-24 17:48 | disposition home or self-care (01) | DRG 189 ==
LOC: EME → EDBD 01:19 → EME 01:19 → EDOF 03:14 → 2EAST 03:14
PROVIDERS: Emergency Medicine; Hospitalist
DX: J96.21 Acute and chronic respiratory failure with hypoxia (principal); Z99.81 Dependence on supplemental oxygen; J44.0 Chronic obstructive pulmonary disease with (acute) lower respiratory infection; J44.1 Chronic obstructive pulmonary disease with (acute) exacerbation; J45.901 Unspecified asthma with (acute) exacerbation; R94.31 Abnormal electrocardiogram [ECG] [EKG]; D86.9 Sarcoidosis, unspecified; G89.29 Other chronic pain; F17.210 Nicotine dependence, cigarettes, uncomplicated; J20.9 Acute bronchitis, unspecified; Z91.19 Patient's noncompliance with other medical treatment and regimen; I10 Essential (primary) hypertension; R07.81 Pleurodynia; D50.9 Iron deficiency anemia, unspecified; E87.6 Hypokalemia
CPT/HCPCS: 36600; 71010; 71275; 80048; 80053; 82803; 83605; 84484; 85025; 85027; 87040; 87070; 87205; 93005; 94640; 94640 76; 94644; 94760; 94799; 99202; 99281; 99283; J0696; J1100; J1644; J2920; J2930; J3475; J7030; J7050; J7644

== ENCOUNTER 2016-08-30 21:45 | Inpatient (IN) | payer OTHER ==
[~2016-08-30] VITALS: Ht 172.7 cm; Wt 97.9 kg
[2016-08-30 22:44] LABS: HEMATOCRIT 29.1 % (36.0-46.0); MCH 24.6 PG (29.0-34.0); MCHC 29.6 G/DL (30.0-36.0); MCV 83.1 FL (83-99); MEAN PLAT.VOLUME 10.6 uM^3 (9.5-12.4); PLATELET COUNT 533 K/uL (156-360); RBC DIS.WIDTH-CV 19.1 % (11.8-14.6); RBC DIS.WIDTH-SD 57.1 % (39-53)
[2016-08-30 22:46] LABS: WHITE BLOOD COUNT 6.5 K/uL (4.1-10.2)
[2016-08-30 22:52] LABS: CHLORIDE 102 mEq/L (99-109); POTASSIUM 4.5 mEq/L (3.7-5.4); SODIUM 138 mEq/L (136-147)
[2016-08-30 22:54] LABS: D-DIMER ELISA 0.42 mg/L FEU (< 0.57); GLUCOSE 75 mg/dL (70-99); INTER. NORMALIZED RATIO 1.1; PROTHROMBIN TIME 10.7 (9.2-11.2); PTT 27.5 (25-32)
[2016-08-30 22:55] LABS: ANION GAP 10 MEQ/L (2-14)
[2016-08-30 22:56] LABS: TROP-I INTERPRETATION NEGATIVE; TROPONIN-I < 0.01 ng/mL (0.0-0.30)
[2016-08-30 22:58] LABS: GFR ESTIMATE (CALCULATED) > 59 mL/min/
[2016-08-30 22:59] LABS: UREA NITROGEN (BUN) 18 mg/dL (9-23)
[2016-08-31] VITALS (7 sets, daily range): BP systolic 120–137; BP diastolic 64–76
[2016-08-31] MEDS ORDERED: SPIRIVA1 INHALATI IH (00:18)
[2016-08-31] MEDS ORDERED: PREDNISONE10 MG PO (00:21)
[2016-08-31 02:18] LABS: INFLUENZA A VIRAL ANTIGEN NEGATIVE; INFLUENZA B VIRAL ANTIGEN NEGATIVE
[2016-08-31 06:44] LABS: HEMATOCRIT 30.8 % (36.0-46.0); MCH 24.2 PG (29.0-34.0); MCHC 29.2 G/DL (30.0-36.0); MCV 82.8 FL (83-99); MEAN PLAT.VOLUME 11.6 uM^3 (9.5-12.4); PLATELET COUNT 613 K/uL (156-360); RBC DIS.WIDTH-CV 19.2 % (11.8-14.6); RBC DIS.WIDTH-SD 57.2 % (39-53); RED BLOOD COUNT 3.72 M/uL (3.80-5.20); WHITE BLOOD COUNT 5.7 K/uL (4.1-10.2)
[2016-08-31 07:29] LABS: ANION GAP 6 MEQ/L (2-14); CHLORIDE 103 MEQ/L (99-109); GFR ESTIMATE (CALCULATED) > 59 mL/min/; SAMPLE HEMOLYSIS CHECK 0; SAMPLE ICTERIC CHECK 0; SAMPLE LIPEMIA CHECK 0; SODIUM 138 MEQ/L (136-147); UREA NITROGEN (BUN) 15 mg/dL (9-23)
[2016-08-31 07:31] LABS: GLUCOSE 180 mg/dL (70-99); POTASSIUM 5.5 MEQ/L (3.7-5.4)
[2016-09-01 04:02] VITALS: BP 119/60
[2016-09-01 07:18] LABS: HEMATOCRIT 30.2 % (36.0-46.0); MCH 24.1 PG (29.0-34.0); MCHC 29.5 G/DL (30.0-36.0); MCV 81.8 FL (83-99); MEAN PLAT.VOLUME 10.7 uM^3 (9.5-12.4); NRBC (%) 0.1 /100 WBC (0-0); PLATELET COUNT 617 K/uL (156-360); RBC DIS.WIDTH-CV 18.8 % (11.8-14.6); RED BLOOD COUNT 3.69 M/uL (3.80-5.20)
[2016-09-01 07:19] LABS: WHITE BLOOD COUNT 14.6 K/uL (4.1-10.2)
[2016-09-01 07:37] LABS: ANION GAP 6 MEQ/L (2-14); CHLORIDE 102 MEQ/L (99-109); GFR ESTIMATE (CALCULATED) > 59 mL/min/; GLUCOSE 161 mg/dL (70-99); SAMPLE HEMOLYSIS CHECK 0; SAMPLE ICTERIC CHECK 0; SAMPLE LIPEMIA CHECK 0; SODIUM 136 MEQ/L (136-147); UREA NITROGEN (BUN) 18 mg/dL (9-23)
[2016-09-01 07:45] VITALS: BP 124/79
[2016-09-01 13:26] LABS: BASE EXCESS 4.5 mEq/L (-3 to +3); BICARBONATE 31.3 mEq/L (22-26); CARBOXY HGB 2.2 % (0-5); METHEMOGLOBIN 1.8 % (0-1.5); PCO2 58 mm Hg (35-45); PO2 75 mm Hg (80-100); SITE RR; pH 7.34 (7.35-7.45)
[2016-09-01 13:27] LABS: COMMENTS - BLOOD GASES A+C+; DEVICE NC; O2 FLOW 3 L/MIN; TOTAL RESP RATE 15 resp/min
[2016-09-01 15:38] LABS: BASE EXCESS 5.6 mEq/L (-3 to +3); BICARBONATE 32.2 mEq/L (22-26); CARBOXY HGB 2.1 % (0-5); METHEMOGLOBIN 1.8 % (0-1.5); PCO2 57 mm Hg (35-45); PO2 72 mm Hg (80-100); pH 7.36 (7.35-7.45)
[2016-09-01 15:41] LABS: COMMENTS - BLOOD GASES A+C+; SITE LR; TOTAL RESP RATE 18 resp/min
[2016-09-01 15:42] LABS: DEVICE BIPAP
[2016-09-01 15:55] VITALS: BP 128/78
[2016-09-01 20:00] VITALS: BP 120/64
[2016-09-01 23:41] VITALS: BP 118/76
[2016-09-02 03:49] VITALS: BP 115/58
[2016-09-02 07:30] VITALS: BP 135/85
[2016-09-02 11:15] VITALS: BP 139/74
[2016-09-02 16:01] VITALS: BP 134/73
[2016-09-02 20:45] VITALS: BP 134/61
[2016-09-02 23:05] VITALS: BP 120/81
[2016-09-03 03:15] VITALS: BP 158/78
[2016-09-03 07:10] LABS: HEMATOCRIT 33.9 % (36.0-46.0); MCH 24.2 PG (29.0-34.0); MCHC 29.5 G/DL (30.0-36.0); MCV 81.9 FL (83-99); MEAN PLAT.VOLUME 11.5 uM^3 (9.5-12.4); PLATELET COUNT 619 K/uL (156-360); RBC DIS.WIDTH-CV 19.5 % (11.8-14.6); RBC DIS.WIDTH-SD 56.8 % (39-53); RED BLOOD COUNT 4.14 M/uL (3.80-5.20); WHITE BLOOD COUNT 14.1 K/uL (4.1-10.2)
[2016-09-03 07:32] VITALS: BP 132/76
[2016-09-03 07:40] LABS: ANION GAP 7 MEQ/L (2-14); CHLORIDE 102 MEQ/L (99-109); GFR ESTIMATE (CALCULATED) > 59 mL/min/; POTASSIUM 4.3 MEQ/L (3.7-5.4); SAMPLE HEMOLYSIS CHECK 0; SAMPLE ICTERIC CHECK 0; SAMPLE LIPEMIA CHECK 0; SODIUM 139 MEQ/L (136-147); UREA NITROGEN (BUN) 24 mg/dL (9-23)
[2016-09-03 07:46] LABS: GLUCOSE 107 mg/dL (70-99)
[2016-09-03 11:19] VITALS: BP 135/86
[2016-09-03 16:16] VITALS: BP 133/60
[2016-09-03] MEDS ORDERED: PREDNISONE10 M1 PO (16:25)
[2016-09-03] MEDS ORDERED: ALBUTEROL2.5 MG/0.5 AEROSOL (16:41)
== END 2016-09-03 18:02 | disposition home or self-care (01) | DRG 191 ==
LOC: EME → EDBD 21:45 → EME 21:45 → EDOF 08-31 00:34 → 2EAST 08-31 00:34
PROVIDERS: Emergency Medicine; Hospitalist; Internal Medicine
DX: J44.1 Chronic obstructive pulmonary disease with (acute) exacerbation (principal); J96.10 Chronic respiratory failure, unspecified whether with hypoxia or hypercapnia; Z99.81 Dependence on supplemental oxygen; I10 Essential (primary) hypertension; D86.9 Sarcoidosis, unspecified; E61.1 Iron deficiency; J45.909 Unspecified asthma, uncomplicated; D53.9 Nutritional anemia, unspecified
CPT/HCPCS: 36600; 71020; 80048; 82803; 83735; 84484; 85027; 85379; 85610; 85730; 87070; 87205; 87502; 87651 90; 93005; 94640; 94640 76; 94660; 94799; 99202; 99281; 99285; J1100; J1644; J2920; J2930; J3475; J7644

== ENCOUNTER 2016-09-13 14:05 | Inpatient (IN) | payer OTHER ==
[~2016-09-13] VITALS: Ht 172.7 cm; Wt 99.7 kg
[~2016-09-13 14:05] MED LIST changes: +ALBUTEROL2.5 MG/0.5 AEROSOL; +PREDNISONE10 M1 PO; +SPIRIVA1 INHALATI IH
[2016-09-13 15:38] LABS: EOSINOPHIL (%) 1.5 % (0-5); EOSINOPHIL COUNT 0.2 K/uL (0-0.3); HEMATOCRIT 30.7 % (36.0-46.0); IMMATURE GRANULOCYTE (%) 0.4 % (0.0-0.7); INSTRUMENT ABS NEUTROPHIL CT 9.9 K/uL; LYMPHOCYTE COUNT 0.6 K/uL (1.0-2.8); MCH 24.7 PG (29.0-34.0); MCHC 29.6 G/DL (30.0-36.0); MCV 83.2 FL (83-99); MONOCYTE (%) 2.4 % (3-12); MONOCYTE COUNT 0.3 K/uL (0-0.8); NEUTROPHIL (%) 90.1 % (45-76); NEUTROPHIL COUNT 9.9 K/uL (1.8-6.4); RBC DIS.WIDTH-CV 20.8 % (11.8-14.6); RBC DIS.WIDTH-SD 62.1 % (39-53); RED BLOOD COUNT 3.69 M/uL (3.80-5.20)
[2016-09-13 15:50] LABS: CHLORIDE 109 mEq/L (99-109); POTASSIUM 4.3 mEq/L (3.7-5.4); SODIUM 140 mEq/L (136-147)
[2016-09-13 15:52] LABS: GLUCOSE 94 mg/dL (70-99)
[2016-09-13 15:53] LABS: ANION GAP 5 MEQ/L (2-14)
[2016-09-13 15:56] LABS: GFR ESTIMATE (CALCULATED) > 59 mL/min/
[2016-09-13 15:57] LABS: UREA NITROGEN (BUN) 11 mg/dL (9-23)
[2016-09-13 16:00] LABS: TROP-I INTERPRETATION NEGATIVE; TROPONIN-I < 0.01 ng/mL (0.0-0.30)
[2016-09-13 16:29] LABS: MEAN PLAT.VOLUME 10.2 uM^3 (9.5-12.4); PLAT.SUFFICIENCY ADEQUATE
[2016-09-13 16:31] LABS: PLATELET COUNT 154 K/uL (156-360)
[2016-09-13] MEDS ORDERED: SERTRALINE HCL100 MG PO (19:32)
[2016-09-13] MEDS ORDERED: PROVENTIL HFA6.7 GM IH (19:32)
[2016-09-13 22:58] VITALS: BP 125/67
[2016-09-14] VITALS (7 sets, daily range): BP systolic 121–139; BP diastolic 68–90
[2016-09-14 05:48] LABS: HEMATOCRIT 32.5 % (36.0-46.0); MCHC 29.2 G/DL (30.0-36.0); MCV 82.1 FL (83-99); MEAN PLAT.VOLUME 11.5 uM^3 (9.5-12.4); PLATELET COUNT 169 K/uL (156-360); RBC DIS.WIDTH-CV 20.4 % (11.8-14.6); RBC DIS.WIDTH-SD 60.9 % (39-53); RED BLOOD COUNT 3.96 M/uL (3.80-5.20); WHITE BLOOD COUNT 7.4 K/uL (4.1-10.2)
[2016-09-14 05:50] LABS: ANION GAP 8 MEQ/L (2-14); CHLORIDE 106 MEQ/L (99-109); GFR ESTIMATE (CALCULATED) > 59 mL/min/; POTASSIUM 4.6 MEQ/L (3.7-5.4); SAMPLE HEMOLYSIS CHECK 0; SAMPLE ICTERIC CHECK 0; SAMPLE LIPEMIA CHECK 0; SODIUM 138 MEQ/L (136-147); UREA NITROGEN (BUN) 16 mg/dL (9-23)
[2016-09-14 05:51] LABS: GLUCOSE 146 mg/dL (70-99)
[2016-09-15 04:16] VITALS: BP 143/80
[2016-09-15 08:04] VITALS: BP 132/74
[2016-09-15 12:25] VITALS: BP 128/65
[2016-09-15 15:41] VITALS: BP 154/67
[2016-09-15 20:00] VITALS: BP 119/62
[2016-09-16 00:11] VITALS: BP 129/71
[2016-09-16 04:22] VITALS: BP 123/74
[2016-09-16 06:55] VITALS: BP 132/84
[2016-09-16] MEDS ORDERED: PREDNISONE10 MG PO (10:48)
[2016-09-16] MEDS ORDERED: CALCIUM 500 MG1 EACH PO (10:48)
== END 2016-09-16 11:32 | disposition home or self-care (01) | DRG 191 ==
LOC: EME 14:05 → EDOF 21:43 → 5WEST 22:32 → 2EAST 09-14 10:29 → 5WEST 09-14 10:29 → 2EAST 09-15 22:59
PROVIDERS: Emergency Medicine; Hospitalist
DX: J44.1 Chronic obstructive pulmonary disease with (acute) exacerbation (principal); J96.11 Chronic respiratory failure with hypoxia; J98.11 Atelectasis; F17.210 Nicotine dependence, cigarettes, uncomplicated; Z68.33 Body mass index [BMI] 33.0-33.9, adult; E66.9 Obesity, unspecified; D86.9 Sarcoidosis, unspecified; I10 Essential (primary) hypertension; G89.29 Other chronic pain; F41.9 Anxiety disorder, unspecified; Z99.81 Dependence on supplemental oxygen
CPT/HCPCS: 71010; 80048; 84484; 85025; 85027; 87070; 87205; 93005; 94640; 94640 76; 94644; 94799; 99202; 99281; 99285; G0378; J1100; J1644; J2930

== ENCOUNTER 2016-09-19 07:57 | Inpatient (IN) | payer OTHER ==
[~2016-09-19] VITALS: Ht 172.7 cm; Wt 100.0 kg
[~2016-09-19 07:57] MED LIST changes: +CALCIUM 500 MG1 EACH PO; +PROVENTIL HFA6.7 GM IH
[2016-09-19 09:32] LABS: EOSINOPHIL (%) 4.8 % (0-5); EOSINOPHIL COUNT 0.5 K/uL (0-0.3); HEMATOCRIT 32.9 % (36.0-46.0); IMMATURE GRANULOCYTE (%) 0.4 % (0.0-0.7); INSTRUMENT ABS NEUTROPHIL CT 7.6 K/uL; LYMPHOCYTE COUNT 1.1 K/uL (1.0-2.8); MCHC 29.8 G/DL (30.0-36.0); MCV 80.6 FL (83-99); MEAN PLAT.VOLUME 10.4 uM^3 (9.5-12.4); MONOCYTE (%) 3.3 % (3-12); MONOCYTE COUNT 0.3 K/uL (0-0.8); NEUTROPHIL (%) 80.2 % (45-76); NEUTROPHIL COUNT 7.6 K/uL (1.8-6.4); RBC DIS.WIDTH-CV 20.5 % (11.8-14.6); RBC DIS.WIDTH-SD 59.6 % (39-53); RED BLOOD COUNT 4.08 M/uL (3.80-5.20); WHITE BLOOD COUNT 9.5 K/uL (4.1-10.2)
[2016-09-19 09:33] LABS: PLATELET COUNT 236 K/uL (156-360)
[2016-09-19 09:36] LABS: CHLORIDE 104 mEq/L (99-109); POTASSIUM 4.4 mEq/L (3.7-5.4); SODIUM 136 mEq/L (136-147)
[2016-09-19 09:38] LABS: GLUCOSE 93 mg/dL (70-99)
[2016-09-19 09:39] LABS: ANION GAP 4 MEQ/L (2-14)
[2016-09-19 09:41] LABS: GFR ESTIMATE (CALCULATED) > 59 mL/min/
[2016-09-19 09:42] LABS: UREA NITROGEN (BUN) 19 mg/dL (9-23)
[2016-09-19] MEDS ORDERED: SPIRIVA RESPIMAT4 GM IH (11:44)
[2016-09-19 14:00] VITALS: BP 141/75
[2016-09-19 19:50] VITALS: BP 142/78
[2016-09-19 23:26] VITALS: BP 141/86
[2016-09-20 08:10] VITALS: BP 145/93
[2016-09-20 20:12] VITALS: BP 143/70
[2016-09-20 23:40] VITALS: BP 143/70
[2016-09-21 07:41] VITALS: BP 140/76
[2016-09-21 16:06] VITALS: BP 143/81
[2016-09-22 00:09] VITALS: BP 143/59
[2016-09-22 07:40] VITALS: BP 136/64
[2016-09-22 11:30] VITALS: BP 156/69
[2016-09-22 15:52] VITALS: BP 147/65
[2016-09-22 23:21] VITALS: BP 126/66
[2016-09-23 07:23] VITALS: BP 130/84
[2016-09-23 07:39] LABS: EOSINOPHIL (%) 0.2 % (0-5); HEMATOCRIT 31.4 % (36.0-46.0); IMMATURE GRANULOCYTE (%) 0.8 % (0.0-0.7); IMMATURE GRANULOCYTE COUNT 0.1 K/uL; INSTRUMENT ABS NEUTROPHIL CT 7.4 K/uL; LYMPHOCYTE COUNT 1.9 K/uL (1.0-2.8); MCH 24.5 PG (29.0-34.0); MCHC 29.3 G/DL (30.0-36.0); MCV 83.5 FL (83-99); MEAN PLAT.VOLUME 11.3 uM^3 (9.5-12.4); MONOCYTE (%) 9.5 % (3-12); NEUTROPHIL (%) 71.4 % (45-76); NEUTROPHIL COUNT 7.4 K/uL (1.8-6.4); PLATELET COUNT 246 K/uL (156-360); RBC DIS.WIDTH-CV 21.6 % (11.8-14.6); RBC DIS.WIDTH-SD 64.6 % (39-53); RED BLOOD COUNT 3.76 M/uL (3.80-5.20); WHITE BLOOD COUNT 10.4 K/uL (4.1-10.2)
[2016-09-23 07:49] LABS: ANION GAP 5 MEQ/L (2-14); CHLORIDE 104 MEQ/L (99-109); GFR ESTIMATE (CALCULATED) > 59 mL/min/; GLUCOSE 92 mg/dL (70-99); POTASSIUM 4.4 MEQ/L (3.7-5.4); SAMPLE HEMOLYSIS CHECK 0; SAMPLE ICTERIC CHECK 0; SAMPLE LIPEMIA CHECK 0; SODIUM 140 MEQ/L (136-147); UREA NITROGEN (BUN) 23 mg/dL (9-23)
[2016-09-23 13:52] LABS: BASE EXCESS 4.5 mEq/L (-3 to +3); BICARBONATE 29.2 mEq/L (22-26); CARBOXY HGB 2.1 % (0-5); METHEMOGLOBIN 1.7 % (0-1.5); pH 7.44 (7.35-7.45)
[2016-09-23 13:56] LABS: COMMENTS - BLOOD GASES C+; DEVICE RA; FI02 21 %; PCO2 43 mm Hg (35-45); PO2 87 mm Hg (80-100); SITE LR
[2016-09-23 15:55] VITALS: BP 150/73
[2016-09-23 23:38] VITALS: BP 142/84
[2016-09-24 09:16] VITALS: BP 138/82
[2016-09-24] MEDS ORDERED: DUONEB 2.5-0.5 M3 ML AEROSOL (14:10)
[2016-09-24] MEDS ORDERED: PREDNISONE10 MG PO (14:10)
[2016-09-24] MEDS ORDERED: VENTOLIN HFA18 GM IH (14:10)
[2016-09-24] MEDS ORDERED: ALPRAZOLAM0.25 M2 PO (14:10)
[2016-09-24 16:30] VITALS: BP 130/81
== END 2016-09-24 18:12 | disposition home health service (06) | DRG 191 ==
LOC: EME 07:57 → EDOF 10:10 → 5SOUTH 10:30 → EDOF 10:30 → 5SOUTH 13:27
PROVIDERS: Emergency Medicine; Internal Medicine; Internal Medicine Pulmonary Disease
DX: J44.1 Chronic obstructive pulmonary disease with (acute) exacerbation (principal); J96.11 Chronic respiratory failure with hypoxia; D86.9 Sarcoidosis, unspecified; D50.9 Iron deficiency anemia, unspecified; Z91.14 Patient's other noncompliance with medication regimen; F17.210 Nicotine dependence, cigarettes, uncomplicated; Z88.6 Allergy status to analgesic agent; I10 Essential (primary) hypertension; G89.29 Other chronic pain
CPT/HCPCS: 36600; 71010; 80048; 82103 90; 82803; 85025; 94640; 94640 76; 94799; 99202; 99281; 99285; J1100; J1650; J1885; J2930; J7512; J7644

== ENCOUNTER 2016-10-10 11:29 | Inpatient (IN) | payer OTHER ==
[~2016-10-10] VITALS: Ht 172.7 cm; Wt 101.8 kg
[2016-10-10 12:16] LABS: EOSINOPHIL (%) 0.1 % (0-5); HEMATOCRIT 32.6 % (36.0-46.0); IMMATURE GRANULOCYTE (%) 0.4 % (0.0-0.7); INSTRUMENT ABS NEUTROPHIL CT 5.6 K/uL; LYMPHOCYTE COUNT 1.1 K/uL (1.0-2.8); MCH 24.6 PG (29.0-34.0); MCHC 29.8 G/DL (30.0-36.0); MCV 82.5 FL (83-99); MONOCYTE (%) 4.6 % (3-12); MONOCYTE COUNT 0.3 K/uL (0-0.8); NEUTROPHIL (%) 78.5 % (45-76); NEUTROPHIL COUNT 5.6 K/uL (1.8-6.4); PLATELET COUNT 418 K/uL (156-360); RBC DIS.WIDTH-CV 21.4 % (11.8-14.6); RED BLOOD COUNT 3.95 M/uL (3.80-5.20); WHITE BLOOD COUNT 7.2 K/uL (4.1-10.2)
[2016-10-10 12:20] LABS: CHLORIDE 106 mEq/L (99-109); POTASSIUM 4.1 mEq/L (3.7-5.4); SODIUM 142 mEq/L (136-147)
[2016-10-10 12:22] LABS: GLUCOSE 100 mg/dL (70-99)
[2016-10-10 12:23] LABS: ANION GAP 8 MEQ/L (2-14)
[2016-10-10 12:26] LABS: GFR ESTIMATE (CALCULATED) > 59 mL/min/; UREA NITROGEN (BUN) 27 mg/dL (9-23)
[2016-10-10] MEDS ORDERED: SPIRIVA1 INHALATI IH (15:12)
[2016-10-10 16:31] LABS: TROP-I INTERPRETATION NEGATIVE; TROPONIN-I < 0.01 ng/mL (0.0-0.30)
[2016-10-10 16:51] VITALS: BP 152/92
[2016-10-10 19:35] VITALS: BP 132/76
[2016-10-10 22:13] LABS: TROP-I INTERPRETATION NEGATIVE; TROPONIN-I < 0.01 ng/mL (0.0-0.30)
[2016-10-10 23:39] VITALS: BP 132/79
[2016-10-11 03:30] VITALS: BP 146/82
[2016-10-11 04:46] LABS: TROP-I INTERPRETATION NEGATIVE; TROPONIN-I < 0.01 ng/mL (0.0-0.30)
[2016-10-11 07:17] VITALS: BP 173/90
[2016-10-11 12:09] VITALS: BP 143/83
[2016-10-11 15:44] VITALS: BP 133/75
[2016-10-11 20:01] VITALS: BP 138/79
[2016-10-12] VITALS (7 sets, daily range): BP systolic 123–150; BP diastolic 68–89
[2016-10-12 06:22] LABS: EOSINOPHIL (%) 0 % (0-5); HEMATOCRIT 33.7 % (36.0-46.0); IMMATURE GRANULOCYTE (%) 0.4 % (0.0-0.7); INSTRUMENT ABS NEUTROPHIL CT 6.3 K/uL; LYMPHOCYTE COUNT 0.7 K/uL (1.0-2.8); MCH 24.8 PG (29.0-34.0); MCHC 30.6 G/DL (30.0-36.0); MEAN PLAT.VOLUME 10.6 uM^3 (9.5-12.4); MONOCYTE (%) 2.5 % (3-12); MONOCYTE COUNT 0.2 K/uL (0-0.8); NEUTROPHIL (%) 87.7 % (45-76); NEUTROPHIL COUNT 6.3 K/uL (1.8-6.4); PLATELET COUNT 450 K/uL (156-360); RBC DIS.WIDTH-CV 21.6 % (11.8-14.6); RBC DIS.WIDTH-SD 63.2 % (39-53); RED BLOOD COUNT 4.16 M/uL (3.80-5.20); WHITE BLOOD COUNT 7.2 K/uL (4.1-10.2)
[2016-10-12 06:42] LABS: ANION GAP 5 MEQ/L (2-14); CHLORIDE 103 MEQ/L (99-109); GFR ESTIMATE (CALCULATED) > 59 mL/min/; MAGNESIUM 2.1 mg/dl (1.3-2.7); POTASSIUM 4.1 MEQ/L (3.7-5.4); SAMPLE HEMOLYSIS CHECK 0; SAMPLE ICTERIC CHECK 0; SAMPLE LIPEMIA CHECK 0; SODIUM 138 MEQ/L (136-147); UREA NITROGEN (BUN) 25 mg/dL (9-23)
[2016-10-12 06:49] LABS: GLUCOSE 152 mg/dL (70-99)
[2016-10-13 03:33] VITALS: BP 138/90
[2016-10-13 07:05] VITALS: BP 130/86
[2016-10-13 08:47] VITALS: BP 140/90
[2016-10-13 10:59] VITALS: BP 131/68
[2016-10-13 15:34] VITALS: BP 131/83
[2016-10-13 23:18] VITALS: BP 138/64
[2016-10-14 06:49] LABS: HEMATOCRIT 37.1 % (36.0-46.0); MCH 24.6 PG (29.0-34.0); MCHC 29.6 G/DL (30.0-36.0); MCV 82.8 FL (83-99); MEAN PLAT.VOLUME 10.1 uM^3 (9.5-12.4); PLATELET COUNT 404 K/uL (156-360); RBC DIS.WIDTH-CV 21.1 % (11.8-14.6); RBC DIS.WIDTH-SD 63.7 % (39-53); RED BLOOD COUNT 4.48 M/uL (3.80-5.20)
[2016-10-14 07:04] LABS: ANION GAP 3 MEQ/L (2-14); CHLORIDE 104 MEQ/L (99-109); GFR ESTIMATE (CALCULATED) > 59 mL/min/; POTASSIUM 4.6 MEQ/L (3.7-5.4); SAMPLE HEMOLYSIS CHECK 0; SAMPLE ICTERIC CHECK 0; SAMPLE LIPEMIA CHECK 0; SODIUM 140 MEQ/L (136-147); UREA NITROGEN (BUN) 18 mg/dL (9-23)
[2016-10-14 07:05] LABS: GLUCOSE 92 mg/dL (70-99)
[2016-10-14 08:00] VITALS: BP 129/68
[2016-10-14 16:00] VITALS: BP 136/69
[2016-10-14 21:36] LABS: ADD MIUA? NO; BILIRUBIN NEGATIVE; BLOOD NEGATIVE; COLOR YELLOW ((YELLOW)); GLUCOSE (STRIP) NEGATIVE; KETONES NEGATIVE; LEUKOCYTES NEGATIVE; NITRITE NEGATIVE; PROTEIN (STRIP) NEGATIVE; SPECIFIC GRAVITY 1.024 (1.000-1.030); UCUL ADDED? NO; UROBILINOGEN 0.2 MG/DL (0.2-1.0)
[2016-10-14 23:26] VITALS: BP 144/89
[2016-10-15 07:02] LABS: HEMATOCRIT 37.6 % (36.0-46.0); MCH 24.2 PG (29.0-34.0); MCHC 29.3 G/DL (30.0-36.0); MCV 82.6 FL (83-99); MEAN PLAT.VOLUME 10.6 uM^3 (9.5-12.4); PLATELET COUNT 387 K/uL (156-360); RBC DIS.WIDTH-SD 62.8 % (39-53); RED BLOOD COUNT 4.55 M/uL (3.80-5.20); WHITE BLOOD COUNT 10.4 K/uL (4.1-10.2)
[2016-10-15 07:25] VITALS: BP 128/79
[2016-10-15 07:34] LABS: ALKALINE PHOSPHATASE 70 IU/L (3-129); ANION GAP 5 MEQ/L (2-14); CHLORIDE 102 MEQ/L (99-109); GFR ESTIMATE (CALCULATED) > 59 mL/min/; GLUCOSE 115 mg/dL (70-99); POTASSIUM 4.1 MEQ/L (3.7-5.4); SAMPLE HEMOLYSIS CHECK 0; SAMPLE ICTERIC CHECK 0; SAMPLE LIPEMIA CHECK 0; SODIUM 139 MEQ/L (136-147); TOTAL BILIRUBIN 0.4 MG/DL (0.0-1.0); UREA NITROGEN (BUN) 19 mg/dL (9-23)
[2016-10-15 08:06] LABS: EOSINOPHIL (%) 0.1 % (0-5); IMMATURE GRANULOCYTE (%) 0.6 % (0.0-0.7); IMMATURE GRANULOCYTE COUNT 0.1 K/uL; INSTRUMENT ABS NEUTROPHIL CT 8.1 K/uL; LYMPHOCYTE COUNT 1.4 K/uL (1.0-2.8); MONOCYTE (%) 7.6 % (3-12); MONOCYTE COUNT 0.8 K/uL (0-0.8); NEUTROPHIL (%) 77.8 % (45-76); NEUTROPHIL COUNT 8.1 K/uL (1.8-6.4)
[2016-10-15] MEDS ORDERED: NICOTINE PATCH1 EAC2 TD (09:39)
[2016-10-15] MEDS ORDERED: PREDNISONE10 MG PO ×3 (09:40→10:03)
[2016-10-15] MEDS ORDERED: CALCIUM 500 MG1 EACH PO (09:40)
[2016-10-15] MEDS ORDERED: AMLODIPINE BESYL5 MG PO (09:40)
== END 2016-10-15 11:55 | disposition home or self-care (01) | DRG 190 ==
LOC: EME 11:29 → 2EAST 15:41 → EDOF 15:41 → 2EAST 16:47
PROVIDERS: Emergency Medicine; Hospitalist; Internal Medicine
DX: J44.1 Chronic obstructive pulmonary disease with (acute) exacerbation (principal); J96.21 Acute and chronic respiratory failure with hypoxia; J44.0 Chronic obstructive pulmonary disease with (acute) lower respiratory infection; J20.9 Acute bronchitis, unspecified; D50.9 Iron deficiency anemia, unspecified; J45.50 Severe persistent asthma, uncomplicated; D86.9 Sarcoidosis, unspecified; I10 Essential (primary) hypertension; M19.90 Unspecified osteoarthritis, unspecified site; F17.210 Nicotine dependence, cigarettes, uncomplicated; E66.9 Obesity, unspecified; Z68.34 Body mass index [BMI] 34.0-34.9, adult
CPT/HCPCS: 71010; 80048; 80053; 81003; 83735; 84484; 85025; 85027; 87070; 87205; 93005; 94640; 94640 76; 94760; 94799; 99202; 99281; 99285; J0696; J1650; J2920; J2930; J7050; J7512; J7644

== ENCOUNTER 2016-11-11 11:47 | Emergency (ER) | payer OTHER ==
[~2016-11-11] VITALS: Ht 172.7 cm; Wt 102.1 kg
[~2016-11-11 11:47] MED LIST changes: +AMLODIPINE BESYL5 MG PO; +NICOTINE PATCH1 EAC2 TD
[2016-11-11 13:40] LABS: BASOPHIL COUNT 0.1 K/uL (0-0.1); CHLORIDE 108 mEq/L (99-109); EOSINOPHIL (%) 2.7 % (0-5); EOSINOPHIL COUNT 0.1 K/uL (0-0.3); HEMATOCRIT 35.6 % (36.0-46.0); IMMATURE GRANULOCYTE (%) 0.4 % (0.0-0.7); INSTRUMENT ABS NEUTROPHIL CT 2.8 K/uL; LYMPHOCYTE COUNT 1.4 K/uL (1.0-2.8); MCH 25.5 PG (29.0-34.0); MCHC 29.8 G/DL (30.0-36.0); MCV 85.8 FL (83-99); MEAN PLAT.VOLUME 11.4 uM^3 (9.5-12.4); MONOCYTE (%) 15.2 % (3-12); MONOCYTE COUNT 0.8 K/uL (0-0.8); NEUTROPHIL (%) 53.8 % (45-76); NEUTROPHIL COUNT 2.8 K/uL (1.8-6.4); PLATELET COUNT 329 K/uL (156-360); POTASSIUM 3.7 mEq/L (3.7-5.4); RBC DIS.WIDTH-CV 21.3 % (11.8-14.6); RBC DIS.WIDTH-SD 66.6 % (39-53); RED BLOOD COUNT 4.15 M/uL (3.80-5.20); SODIUM 142 mEq/L (136-147); WHITE BLOOD COUNT 5.3 K/uL (4.1-10.2)
[2016-11-11 13:42] LABS: GLUCOSE 117 mg/dL (70-99)
[2016-11-11 13:43] LABS: ANION GAP 7 MEQ/L (2-14)
[2016-11-11 13:46] LABS: GFR ESTIMATE (CALCULATED) > 59 mL/min/
[2016-11-11 13:47] LABS: UREA NITROGEN (BUN) 13 mg/dL (9-23)
[2016-11-11] MEDS ORDERED: ZITHROMAX Z-PA250 MG PO (14:42)
[2016-11-11] MEDS ORDERED: PREDNISONE50 MG PO (14:42)
[2016-11-11 15:08] VITALS: BP 132/70
== END 2016-11-11 15:09 | disposition home or self-care (01) ==
LOC: EME 11:47
PROVIDERS: Emergency Medicine
DX: J44.1 Chronic obstructive pulmonary disease with (acute) exacerbation (principal); J45.909 Unspecified asthma, uncomplicated; D86.9 Sarcoidosis, unspecified; Z87.891 Personal history of nicotine dependence; Z87.442 Personal history of urinary calculi; I10 Essential (primary) hypertension; Z88.6 Allergy status to analgesic agent
CPT/HCPCS: 71010; 80048; 85025; 93005; 94640; 99281; 99284; J2930; J7644

== ENCOUNTER 2016-11-14 13:02 | Inpatient (IN) | payer OTHER ==
[~2016-11-14] VITALS: Ht 172.7 cm; Wt 108.5 kg
[2016-11-14] MEDS ORDERED: ENDOCET 5-3251 EACH PO (14:02)
[2016-11-14 14:30] LABS: MCH 25.5 PG (29.0-34.0); MCV 84.9 FL (83-99); MEAN PLAT.VOLUME 10.5 uM^3 (9.5-12.4); PLATELET COUNT 292 K/uL (156-360); RBC DIS.WIDTH-CV 20.9 % (11.8-14.6); RBC DIS.WIDTH-SD 65.3 % (39-53); RED BLOOD COUNT 4.36 M/uL (3.80-5.20); WHITE BLOOD COUNT 6.4 K/uL (4.1-10.2)
[2016-11-14 14:33] LABS: BASOPHIL COUNT 0.1 K/uL (0-0.1); EOSINOPHIL COUNT 0.2 K/uL (0-0.3); IMMATURE GRANULOCYTE (%) 0.2 % (0.0-0.7); INSTRUMENT ABS NEUTROPHIL CT 3.6 K/uL; LYMPHOCYTE COUNT 1.8 K/uL (1.0-2.8); MONOCYTE (%) 11.3 % (3-12); MONOCYTE COUNT 0.7 K/uL (0-0.8); NEUTROPHIL (%) 56.3 % (45-76); NEUTROPHIL COUNT 3.6 K/uL (1.8-6.4)
[2016-11-14 14:38] LABS: CHLORIDE 106 mEq/L (99-109); POTASSIUM 3.9 mEq/L (3.7-5.4); SODIUM 142 mEq/L (136-147)
[2016-11-14 14:40] LABS: GLUCOSE 92 mg/dL (70-99)
[2016-11-14 14:41] LABS: ANION GAP 8 MEQ/L (2-14)
[2016-11-14 14:42] LABS: TOTAL BILIRUBIN 0.6 mg/dL (0.0-1.0)
[2016-11-14 14:44] LABS: ALKALINE PHOSPHATASE 97 IU/L (3-129); GFR ESTIMATE (CALCULATED) > 59 mL/min/
[2016-11-14 14:45] LABS: UREA NITROGEN (BUN) 11 mg/dL (9-23)
[2016-11-14 14:47] LABS: LIPASE 11 U/L (1.0-51.0)
[2016-11-14 14:53] LABS: QUANTITATIVE HCG < 4.0 MIU/ML
[2016-11-14 14:59] LABS: ADD MIUA? YES; BILIRUBIN NEGATIVE; BLOOD LARGE; COLOR RED ((YELLOW)); GLUCOSE (STRIP) NEGATIVE; KETONES NEGATIVE; LEUKOCYTES SMALL; NITRITE NEGATIVE; PH, URINE 6.5 (5-8); PROTEIN (STRIP) 100; UROBILINOGEN 0.2 MG/DL (0.2-1.0)
[2016-11-14 15:01] LABS: RED BLOOD CELLS TNTC /HPF (0-5)
[2016-11-14] MEDS ORDERED: ALBUTEROL2.5 MG/0.5 IH (19:19)
[2016-11-14] MEDS ORDERED: NORVASC5 MG PO (19:20)
[2016-11-14] MEDS ORDERED: ADVAIR 250/501 DISK IH (19:21)
[2016-11-14 22:47] VITALS: BP 135/65
[2016-11-15 06:35] LABS: HEMATOCRIT 33.9 % (36.0-46.0); MCH 25.6 PG (29.0-34.0); MCHC 30.4 G/DL (30.0-36.0); MCV 84.1 FL (83-99); MEAN PLAT.VOLUME 12.1 uM^3 (9.5-12.4); PLATELET COUNT 290 K/uL (156-360); RBC DIS.WIDTH-CV 20.4 % (11.8-14.6); RBC DIS.WIDTH-SD 63.4 % (39-53); RED BLOOD COUNT 4.03 M/uL (3.80-5.20); WHITE BLOOD COUNT 4.5 K/uL (4.1-10.2)
[2016-11-15 07:07] LABS: ANION GAP 7 MEQ/L (2-14); CHLORIDE 107 MEQ/L (99-109); GFR ESTIMATE (CALCULATED) > 59 mL/min/; GLUCOSE 167 mg/dL (70-99); POTASSIUM 4.5 MEQ/L (3.7-5.4); SAMPLE HEMOLYSIS CHECK 0; SAMPLE ICTERIC CHECK 0; SAMPLE LIPEMIA CHECK 0; SODIUM 137 MEQ/L (136-147); UREA NITROGEN (BUN) 14 mg/dL (9-23)
[2016-11-15 07:16] VITALS: BP 147/94
[2016-11-15 12:09] VITALS: BP 132/97
[2016-11-15 15:59] VITALS: BP 135/86
[2016-11-15 19:28] VITALS: BP 135/69
[2016-11-15 23:24] VITALS: BP 143/87
[2016-11-16 03:20] VITALS: BP 150/72
[2016-11-16 06:26] LABS: EOSINOPHIL (%) 0 % (0-5); HEMATOCRIT 33.9 % (36.0-46.0); IMMATURE GRANULOCYTE (%) 0.5 % (0.0-0.7); IMMATURE GRANULOCYTE COUNT 0.1 K/uL; INSTRUMENT ABS NEUTROPHIL CT 13.1 K/uL; MCH 26.2 PG (29.0-34.0); MCHC 31.3 G/DL (30.0-36.0); MCV 83.9 FL (83-99); MONOCYTE (%) 1.2 % (3-12); MONOCYTE COUNT 0.2 K/uL (0-0.8); NEUTROPHIL (%) 91.3 % (45-76); NEUTROPHIL COUNT 13.1 K/uL (1.8-6.4); PLATELET COUNT 241 K/uL (156-360); RBC DIS.WIDTH-CV 20.7 % (11.8-14.6); RBC DIS.WIDTH-SD 62.7 % (39-53); RED BLOOD COUNT 4.04 M/uL (3.80-5.20); WHITE BLOOD COUNT 14.3 K/uL (4.1-10.2)
[2016-11-16 06:36] LABS: ANION GAP 6 MEQ/L (2-14); CHLORIDE 108 MEQ/L (99-109); GFR ESTIMATE (CALCULATED) > 59 mL/min/; POTASSIUM 4.8 MEQ/L (3.7-5.4); SAMPLE HEMOLYSIS CHECK 0; SAMPLE ICTERIC CHECK 0; SAMPLE LIPEMIA CHECK 0; SODIUM 138 MEQ/L (136-147); UREA NITROGEN (BUN) 16 mg/dL (9-23)
[2016-11-16 06:48] LABS: GLUCOSE 117 mg/dL (70-99)
[2016-11-16 06:49] VITALS: BP 148/84
[2016-11-16 11:13] VITALS: BP 131/94
[2016-11-16] MEDS ORDERED: PREDNISONE20 MG PO (14:21)
[2016-11-16] MEDS ORDERED: CEFTIN500 MG PO (14:21)
[2016-11-16] MEDS ORDERED: NICOTINE PATCH1 EAC1 TD (14:24)
[2016-11-16 15:00] VITALS: BP 124/60
== END 2016-11-16 20:51 | disposition home health service (06) | DRG 190 ==
LOC: EME 13:02 → 5EAST 20:44 → EDOF 20:44 → 5EAST 22:32
PROVIDERS: Hospitalist; Internal Medicine; Physician Assistant
DX: J44.1 Chronic obstructive pulmonary disease with (acute) exacerbation (principal); J96.21 Acute and chronic respiratory failure with hypoxia; J45.901 Unspecified asthma with (acute) exacerbation; D86.9 Sarcoidosis, unspecified; D50.9 Iron deficiency anemia, unspecified; F17.210 Nicotine dependence, cigarettes, uncomplicated; I10 Essential (primary) hypertension; G89.29 Other chronic pain; Z99.81 Dependence on supplemental oxygen; Z91.19 Patient's noncompliance with other medical treatment and regimen; Z68.36 Body mass index [BMI] 36.0-36.9, adult; N30.91 Cystitis, unspecified with hematuria; R31.0 Gross hematuria; Z80.1 Family history of malignant neoplasm of trachea, bronchus and lung; Z83.6 Family history of other diseases of the respiratory system; Z88.5 Allergy status to narcotic agent; F39 Unspecified mood [affective] disorder; N20.0 Calculus of kidney; Z87.442 Personal history of urinary calculi; N88.8 Other specified noninflammatory disorders of cervix uteri; Z77.22 Contact with and (suspected) exposure to environmental tobacco smoke (acute) (chronic); Z91.14 Patient's other noncompliance with medication regimen; Z91.128 Patient's intentional underdosing of medication regimen for other reason
CPT/HCPCS: 71020; 74177; 76856; 80048; 80053; 81003; 83690; 84702; 85025; 85027; 87040; 87070; 87086; 87205; 94640; 94640 76; 94644; 94799; 99202; 99281; 99285; J0696; J1100; J1644; J1885; J2930; J3010; J7030; J7050

== ENCOUNTER 2016-11-30 12:58 | Inpatient (IN) | payer OTHER ==
[~2016-11-30] VITALS: Ht 172.7 cm; Wt 104.9 kg
[~2016-11-30 12:58] MED LIST changes: +ALBUTEROL2.5 MG/0.5 IH; +NORVASC5 MG PO
[2016-11-30 13:33] LABS: EOSINOPHIL (%) 4.5 % (0-5); EOSINOPHIL COUNT 0.2 K/uL (0-0.3); HEMATOCRIT 33.1 % (36.0-46.0); INSTRUMENT ABS NEUTROPHIL CT 2.1 K/uL; LYMPHOCYTE COUNT 1.4 K/uL (1.0-2.8); MCH 26.2 PG (29.0-34.0); MCHC 30.5 G/DL (30.0-36.0); MCV 85.8 FL (83-99); MEAN PLAT.VOLUME 9.9 uM^3 (9.5-12.4); MONOCYTE (%) 12.7 % (3-12); MONOCYTE COUNT 0.5 K/uL (0-0.8); NEUTROPHIL (%) 50.1 % (45-76); NEUTROPHIL COUNT 2.1 K/uL (1.8-6.4); PLATELET COUNT 173 K/uL (156-360); RBC DIS.WIDTH-SD 63.7 % (39-53); RED BLOOD COUNT 3.86 M/uL (3.80-5.20); WHITE BLOOD COUNT 4.2 K/uL (4.1-10.2)
[2016-11-30 13:40] LABS: CHLORIDE 108 mEq/L (99-109); POTASSIUM 4.3 mEq/L (3.7-5.4); SODIUM 142 mEq/L (136-147)
[2016-11-30 13:42] LABS: GLUCOSE 96 mg/dL (70-99)
[2016-11-30 13:43] LABS: ANION GAP 7 MEQ/L (2-14)
[2016-11-30 13:46] LABS: GFR ESTIMATE (CALCULATED) > 59 mL/min/
[2016-11-30 13:47] LABS: UREA NITROGEN (BUN) 9 mg/dL (9-23)
[2016-11-30 17:16] VITALS: BP 125/62
[2016-11-30 19:39] VITALS: BP 125/75
[2016-11-30 23:57] VITALS: BP 149/71
[2016-12-01] VITALS (7 sets, daily range): BP systolic 123–155; BP diastolic 63–93
[2016-12-02 04:09] VITALS: BP 132/73
[2016-12-02 07:55] VITALS: BP 158/82
[2016-12-02 15:30] VITALS: BP 140/65
[2016-12-02 19:43] VITALS: BP 125/73
[2016-12-03] VITALS: BP 117/55
[2016-12-03 04:00] VITALS: BP 140/82
[2016-12-03 07:51] VITALS: BP 130/81
[2016-12-03] MEDS ORDERED: ALBUTEROL2.5 MG/0.5 IH (10:52)
[2016-12-03] MEDS ORDERED: LEVAQUIN500 MG PO (10:55)
[2016-12-03] MEDS ORDERED: PREDNISONE10 MG PO (10:57)
[2016-12-03] MEDS ORDERED: ENDOCET 5-3251 EACH PO (10:57)
== END 2016-12-03 11:45 | disposition home or self-care (01) | DRG 191 ==
LOC: EME 12:58 → 5SOUTH 15:31 → EDOF 15:31 → 5SOUTH 16:59
PROVIDERS: Emergency Medicine
DX: J44.0 Chronic obstructive pulmonary disease with (acute) lower respiratory infection (principal); J20.9 Acute bronchitis, unspecified; J96.11 Chronic respiratory failure with hypoxia; J44.1 Chronic obstructive pulmonary disease with (acute) exacerbation; F41.9 Anxiety disorder, unspecified; E66.9 Obesity, unspecified; I10 Essential (primary) hypertension; G89.29 Other chronic pain; Y92.239 Unspecified place in hospital as the place of occurrence of the external cause; M25.562 Pain in left knee; S80.02XA Contusion of left knee, initial encounter; D86.9 Sarcoidosis, unspecified; Z99.81 Dependence on supplemental oxygen; Z68.35 Body mass index [BMI] 35.0-35.9, adult; Z87.891 Personal history of nicotine dependence
CPT/HCPCS: 71010; 71020; 73564; 80048; 83880; 85025; 87040; 87070; 87205; 93005; 94640; 94640 76; 94799; 99202; 99281; 99285; J0692; J1170; J1650; J1940; J2930; J7050; J7644

== ENCOUNTER 2016-12-17 01:21 | Observation (INO) | payer OTHER ==
[~2016-12-17] VITALS: Ht 175.3 cm; Wt 90.0 kg
[2016-12-17 02:10] LABS: BASOPHIL COUNT 0.1 K/uL (0-0.1); EOSINOPHIL COUNT 0.3 K/uL (0-0.3); HEMATOCRIT 33.9 % (36.0-46.0); IMMATURE GRANULOCYTE (%) 0.2 % (0.0-0.7); INSTRUMENT ABS NEUTROPHIL CT 5.3 K/uL; LYMPHOCYTE COUNT 1.5 K/uL (1.0-2.8); MCH 26.8 PG (29.0-34.0); MCHC 31.6 G/DL (30.0-36.0); MEAN PLAT.VOLUME 11.1 uM^3 (9.5-12.4); MONOCYTE (%) 13.7 % (3-12); MONOCYTE COUNT 1.1 K/uL (0-0.8); NEUTROPHIL (%) 64.3 % (45-76); NEUTROPHIL COUNT 5.3 K/uL (1.8-6.4); PLATELET COUNT 235 K/uL (156-360); RBC DIS.WIDTH-CV 19.1 % (11.8-14.6); RBC DIS.WIDTH-SD 59.7 % (39-53); RED BLOOD COUNT 3.99 M/uL (3.80-5.20); WHITE BLOOD COUNT 8.2 K/uL (4.1-10.2)
[2016-12-17 02:12] LABS: CHLORIDE 110 mEq/L (99-109); POTASSIUM 3.1 mEq/L (3.7-5.4); SODIUM 142 mEq/L (136-147)
[2016-12-17 02:13] LABS: GLUCOSE 100 mg/dL (70-99)
[2016-12-17 02:15] LABS: ANION GAP 9 MEQ/L (2-14)
[2016-12-17 02:17] LABS: GFR ESTIMATE (CALCULATED) > 59 mL/min/
[2016-12-17 02:18] LABS: UREA NITROGEN (BUN) 13 mg/dL (9-23)
[2016-12-17 02:24] LABS: TROP-I INTERPRETATION NEGATIVE; TROPONIN-I < 0.01 ng/mL (0.0-0.30)
[2016-12-17 08:32] LABS: TROP-I INTERPRETATION NEGATIVE; TROPONIN-I < 0.01 ng/mL (0.0-0.30)
[2016-12-17 12:17] VITALS: BP 145/78
[2016-12-17 14:47] LABS: TROP-I INTERPRETATION NEGATIVE; TROPONIN-I < 0.01 ng/mL (0.0-0.30)
[2016-12-17 15:57] VITALS: BP 119/68
[2016-12-17 19:42] VITALS: BP 137/60
[2016-12-18 00:08] VITALS: BP 119/65
[2016-12-18 04:00] VITALS: BP 135/91
[2016-12-18 09:50] VITALS: BP 114/58
[2016-12-18 11:18] VITALS: BP 117/53
[2016-12-18] MEDS ORDERED: PREDNISONE10 MG PO (11:26)
== END 2016-12-18 13:22 | disposition home or self-care (01) ==
LOC: EME → EDBD 01:21 → EDOF 07:44 → 5WEST 07:44 → EDOF 07:44 → 5WEST 12:01
PROVIDERS: Emergency Medicine; Internal Medicine
DX: J44.1 Chronic obstructive pulmonary disease with (acute) exacerbation (principal); D86.9 Sarcoidosis, unspecified; J96.11 Chronic respiratory failure with hypoxia; Z99.81 Dependence on supplemental oxygen; Z87.891 Personal history of nicotine dependence; D50.9 Iron deficiency anemia, unspecified; R07.9 Chest pain, unspecified; E87.6 Hypokalemia; Z88.8 Allergy status to other drugs, medicaments and biological substances
CPT/HCPCS: 71010; 80048; 84484; 85025; 93005; 93306; 94640; 94640 76; 94644; 94799; 99202; 99281; 99285; G0378; J1100; J1650; J2060; J2930; J3475; J7030; J7644

== ENCOUNTER 2017-01-04 09:05 | Observation (INO) | payer OTHER ==
[~2017-01-04] VITALS: Ht 172.7 cm; Wt 97.0 kg
[2017-01-04 09:17] LABS: BASE EXCESS 0.5 mEq/L (-3 to +3); BICARBONATE 25.4 mEq/L (22-26); CARBOXY HGB 3.6 % (0-5); METHEMOGLOBIN 1.1 % (0-1.5); PCO2 41 mm Hg (35-45); PO2 163 mm Hg (80-100)
[2017-01-04 09:18] LABS: COMMENTS - BLOOD GASES A+C+; DEVICE NEBULIZER; O2 FLOW 7 L/MIN; SITE RR
[2017-01-04 09:27] LABS: BASOPHIL COUNT 0.1 K/uL (0-0.1); EOSINOPHIL (%) 5.9 % (0-5); EOSINOPHIL COUNT 0.3 K/uL (0-0.3); HEMATOCRIT 38.3 % (36.0-46.0); INSTRUMENT ABS NEUTROPHIL CT 3.1 K/uL; LYMPHOCYTE COUNT 1.2 K/uL (1.0-2.8); MCH 27.1 PG (29.0-34.0); MCHC 31.3 G/DL (30.0-36.0); MCV 86.5 FL (83-99); MEAN PLAT.VOLUME 11.6 uM^3 (9.5-12.4); MONOCYTE (%) 11.4 % (3-12); MONOCYTE COUNT 0.6 K/uL (0-0.8); NEUTROPHIL COUNT 3.1 K/uL (1.8-6.4); PLATELET COUNT 223 K/uL (156-360); RBC DIS.WIDTH-CV 18.5 % (11.8-14.6); RBC DIS.WIDTH-SD 58.2 % (39-53); RED BLOOD COUNT 4.43 M/uL (3.80-5.20); WHITE BLOOD COUNT 5.3 K/uL (4.1-10.2)
[2017-01-04 09:35] LABS: CHLORIDE 111 mEq/L (99-109); POTASSIUM 3.8 mEq/L (3.7-5.4); SODIUM 143 mEq/L (136-147)
[2017-01-04 09:37] LABS: GLUCOSE 77 mg/dL (70-99)
[2017-01-04 09:39] LABS: ANION GAP 7 MEQ/L (2-14)
[2017-01-04 09:41] LABS: GFR ESTIMATE (CALCULATED) > 59 mL/min/
[2017-01-04 09:42] LABS: UREA NITROGEN (BUN) 12 mg/dL (9-23)
[2017-01-04 13:31] VITALS: BP 120/88
[2017-01-04 15:55] VITALS: BP 136/81
[2017-01-04 23:40] VITALS: BP 129/71
[2017-01-05 06:25] LABS: ANION GAP 9 MEQ/L (2-14); CHLORIDE 107 MEQ/L (99-109); GFR ESTIMATE (CALCULATED) > 59 mL/min/; SAMPLE HEMOLYSIS CHECK 0; SAMPLE ICTERIC CHECK 0; SAMPLE LIPEMIA CHECK 0; SODIUM 140 MEQ/L (136-147); UREA NITROGEN (BUN) 12 mg/dL (9-23)
[2017-01-05 06:31] LABS: GLUCOSE 104 mg/dL (70-99); POTASSIUM 4.6 MEQ/L (3.7-5.4)
[2017-01-05 07:00] VITALS: BP 130/74
[2017-01-05 11:05] VITALS: BP 133/68
[2017-01-05 15:15] VITALS: BP 141/83
[2017-01-05 15:23] LABS: TROP-I INTERPRETATION NEGATIVE; TROPONIN-I 0.01 ng/mL (0.0-0.30)
[2017-01-05 20:35] VITALS: BP 130/75
[2017-01-05 23:43] VITALS: BP 132/71
[2017-01-06 04:09] VITALS: BP 135/74
[2017-01-06 05:51] LABS: HEMATOCRIT 37.8 % (36.0-46.0); MCH 27.6 PG (29.0-34.0); MCHC 32.3 G/DL (30.0-36.0); MCV 85.5 FL (83-99); RBC DIS.WIDTH-CV 18.2 % (11.8-14.6); RBC DIS.WIDTH-SD 56.8 % (39-53); RED BLOOD COUNT 4.42 M/uL (3.80-5.20); WHITE BLOOD COUNT 12.9 K/uL (4.1-10.2)
[2017-01-06 06:14] LABS: ANION GAP 7 MEQ/L (2-14); CHLORIDE 106 MEQ/L (99-109); GFR ESTIMATE (CALCULATED) > 59 mL/min/; GLUCOSE 128 mg/dL (70-99); POTASSIUM 5.1 MEQ/L (3.7-5.4); SAMPLE HEMOLYSIS CHECK 0; SAMPLE ICTERIC CHECK 0; SAMPLE LIPEMIA CHECK 0; SODIUM 139 MEQ/L (136-147); UREA NITROGEN (BUN) 17 mg/dL (9-23)
[2017-01-06 07:37] VITALS: BP 134/89
[2017-01-06 08:16] LABS: HEMATOLOGY COMMENT 1 SMEAR COMPATIBLE; MEAN PLAT.VOLUME 12.1 uM^3 (9.5-12.4); PLAT.SUFFICIENCY ADEQUATE; PLATELET COUNT 265 K/uL (156-360)
[2017-01-06] MEDS ORDERED: PREDNISONE10 MG PO ×2 (10:02)
[2017-01-06] MEDS ORDERED: PREDNISONE20 MG PO (10:02)
[2017-01-06] MEDS ORDERED: ADVAIR HFA120 INHALA IH (10:06)
[2017-01-06] MEDS ORDERED: DUONEB 2.5-0.5 M3 ML AEROSOL (11:23)
== END 2017-01-06 12:56 | disposition home or self-care (01) ==
LOC: EME → EDBD 09:05 → EDOF 11:40 → 5EAST 11:40 → EDOF 11:40 → ENRESERV 11:41 → EDOF 11:52 → ENRESERV 12:13 → 5EAST 12:57 → ENRESERV 13:00 → 5EAST 01-06 12:56 → ENPENDDIS 01-06 13:00
PROVIDERS: Emergency Medicine; Hospitalist; Internal Medicine
DX: J44.1 Chronic obstructive pulmonary disease with (acute) exacerbation (principal); D86.9 Sarcoidosis, unspecified; Z72.0 Tobacco use; R07.9 Chest pain, unspecified; Z99.81 Dependence on supplemental oxygen; I10 Essential (primary) hypertension; Z80.1 Family history of malignant neoplasm of trachea, bronchus and lung; Z82.5 Family history of asthma and other chronic lower respiratory diseases; Z88.5 Allergy status to narcotic agent
CPT/HCPCS: 36600; 71010; 80048; 82803; 83880; 84484; 85025; 85027; 93005; 94640; 94640 76; 94644; 94760; 94799; 99202; 99281; 99285; G0378; J2930; J3475; J7512; J7644

== ENCOUNTER 2017-01-20 07:46 | Emergency (ER) | payer OTHER ==
[~2017-01-20] VITALS: Ht 172.7 cm; Wt 98.4 kg
[2017-01-20 09:27] LABS: ADD MIUA? YES; BILIRUBIN NEGATIVE; BLOOD MODERATE; COLOR YELLOW ((YELLOW)); GLUCOSE (STRIP) NEGATIVE; KETONES NEGATIVE; LEUKOCYTES SMALL; NITRITE NEGATIVE; PROTEIN (STRIP) NEGATIVE; SPECIFIC GRAVITY 1.016 (1.000-1.030); UROBILINOGEN 0.2 MG/DL (0.2-1.0)
[2017-01-20 09:31] LABS: BACTERIA RARE /HPF; EPITHELIAL CELLS 1+ /HPF; MUCUS TRACE /LPF; RED BLOOD CELLS 0-5 /HPF (0-5)
[2017-01-20 09:37] LABS: THC CANNABINOIDS NEGATIVE (50 ng/mL)
[2017-01-20 09:38] LABS: ADD MEDTOX COMMENT Y; AMPHETAMINE NEGATIVE (500 ng/mL); BARBITURATES NEGATIVE (200 ng/mL); BENZODIAZEPINES NEGATIVE (150 ng/mL); COCAINE PRESUMPTIVE POSITIVE (150 ng/mL); INTERNAL CONTROLS VALID? YES; METHADONE NEGATIVE (200 ng/mL); METHAMPHETAMINE NEGATIVE (500 ng/mL); OPIATES (MORPHINE) NEGATIVE (100 ng/mL); OXYCODONE NEGATIVE (100 ng/mL); PHENCYCLIDINE NEGATIVE (25 ng/mL); PROPOXYPHENE NEGATIVE (300 ng/mL); TRICYCLIC ANTIDEPRESSANTS NEGATIVE (300 ng/mL)
[2017-01-20 09:41] LABS: HEMATOCRIT 37.9 % (36.0-46.0); MCH 26.8 PG (29.0-34.0); MCHC 31.4 G/DL (30.0-36.0); MCV 85.4 FL (83-99); RBC DIS.WIDTH-CV 18.2 % (11.8-14.6); RBC DIS.WIDTH-SD 56.9 % (39-53); RED BLOOD COUNT 4.44 M/uL (3.80-5.20); WHITE BLOOD COUNT 13.2 K/uL (4.1-10.2)
[2017-01-20 10:13] LABS: CHLORIDE 105 mEq/L (99-109); POTASSIUM 3.7 mEq/L (3.7-5.4); SODIUM 140 mEq/L (136-147)
[2017-01-20 10:15] LABS: GLUCOSE 109 mg/dL (70-99)
[2017-01-20 10:16] LABS: ANION GAP 9 MEQ/L (2-14)
[2017-01-20 10:19] LABS: GFR ESTIMATE (CALCULATED) > 59 mL/min/; UREA NITROGEN (BUN) 15 mg/dL (9-23)
[2017-01-20 10:24] LABS: MEAN PLAT.VOLUME 11.3 uM^3 (9.5-12.4); PLAT.SUFFICIENCY ADEQUATE
[2017-01-20] MEDS ORDERED: VENTOLIN HFA18 GM IH (10:29)
[2017-01-20] MEDS ORDERED: ALBUTEROL2.5 MG/3 M IH (10:29)
[2017-01-20] MEDS ORDERED: PREDNISONE20 MG PO (10:29)
[2017-01-20 10:49] VITALS: BP 145/95
[2017-01-20 10:51] LABS: PLATELET COUNT 180 K/uL (156-360)
== END 2017-01-20 10:57 | disposition home or self-care (01) ==
LOC: EME → EDBD 07:46 → EME 07:46
PROVIDERS: Emergency Medicine
DX: J44.1 Chronic obstructive pulmonary disease with (acute) exacerbation (principal); F14.10 Cocaine abuse, uncomplicated; Z99.81 Dependence on supplemental oxygen; Z87.891 Personal history of nicotine dependence; I10 Essential (primary) hypertension; Z88.6 Allergy status to analgesic agent; Z87.442 Personal history of urinary calculi
CPT/HCPCS: 71020; 80048; 81003; 84999; 85027; 94644; 99281; 99284; J1100; J7644

== ENCOUNTER 2017-02-06 03:21 | Emergency (ER) | payer OTHER ==
[~2017-02-06] VITALS: Ht 172.7 cm; Wt 96.9 kg
[2017-02-06 05:06] LABS: HEMATOCRIT 35.7 % (36.0-46.0); MCH 26.8 PG (29.0-34.0); MCHC 31.9 G/DL (30.0-36.0); MEAN PLAT.VOLUME 10.4 uM^3 (9.5-12.4); PLATELET COUNT 261 K/uL (156-360); RBC DIS.WIDTH-CV 16.8 % (11.8-14.6); RBC DIS.WIDTH-SD 51.9 % (39-53); RED BLOOD COUNT 4.25 M/uL (3.80-5.20); WHITE BLOOD COUNT 7.4 K/uL (4.1-10.2)
[2017-02-06 05:10] LABS: CHLORIDE 109 mEq/L (99-109); POTASSIUM 3.9 mEq/L (3.7-5.4); SODIUM 141 mEq/L (136-147)
[2017-02-06 05:12] LABS: GLUCOSE 109 mg/dL (70-99)
[2017-02-06 05:13] LABS: ANION GAP 7 MEQ/L (2-14)
[2017-02-06 05:16] LABS: GFR ESTIMATE (CALCULATED) > 59 mL/min/
[2017-02-06 05:17] LABS: UREA NITROGEN (BUN) 14 mg/dL (9-23)
[2017-02-06] MEDS ORDERED: PREDNISONE10 MG PO (06:09)
[2017-02-06] MEDS ORDERED: LEVAQUIN750 MG PO (06:09)
[2017-02-06] MEDS ORDERED: VENTOLIN HFA18 GM IH (06:09)
[2017-02-06 06:29] VITALS: BP 136/96
== END 2017-02-06 06:30 | disposition home or self-care (01) ==
LOC: EME → EDBD 03:21 → EME 06:30
PROVIDERS: Emergency Medicine
DX: J44.0 Chronic obstructive pulmonary disease with (acute) lower respiratory infection (principal); J20.9 Acute bronchitis, unspecified; J44.1 Chronic obstructive pulmonary disease with (acute) exacerbation; D64.9 Anemia, unspecified; I10 Essential (primary) hypertension; Z87.891 Personal history of nicotine dependence
CPT/HCPCS: 71020; 80048; 82803; 83880; 85027; 94640; 99281; 99285; J1100; J7644

== ENCOUNTER 2017-02-15 09:00 | Emergency (ER) | payer OTHER ==
[~2017-02-15] VITALS: Ht 172.7 cm; Wt 81.6 kg
[2017-02-15 09:56] LABS: HEMATOCRIT 33.1 % (36.0-46.0); MCH 26.6 PG (29.0-34.0); MCHC 30.8 G/DL (30.0-36.0); MCV 86.2 FL (83-99); RBC DIS.WIDTH-CV 17.5 % (11.8-14.6); RBC DIS.WIDTH-SD 55.5 % (39-53); RED BLOOD COUNT 3.84 M/uL (3.80-5.20); WHITE BLOOD COUNT 5.9 K/uL (4.1-10.2)
[2017-02-15 10:06] LABS: CHLORIDE 114 mEq/L (99-109); POTASSIUM 3.5 mEq/L (3.7-5.4); SODIUM 143 mEq/L (136-147)
[2017-02-15 10:07] LABS: GLUCOSE 99 mg/dL (70-99)
[2017-02-15 10:09] LABS: ANION GAP 8 MEQ/L (2-14)
[2017-02-15 10:11] LABS: GFR ESTIMATE (CALCULATED) > 59 mL/min/
[2017-02-15 10:12] LABS: UREA NITROGEN (BUN) 14 mg/dL (9-23)
[2017-02-15 10:14] LABS: TROP-I INTERPRETATION NEGATIVE; TROPONIN-I < 0.01 ng/mL (0.0-0.30)
[2017-02-15 10:35] LABS: MEAN PLAT.VOLUME 11.3 uM^3 (9.5-12.4); PLATELET COUNT 167 K/uL (156-360)
[2017-02-15] MEDS ORDERED: AZITHROMYCIN250 MG1 PO (11:53)
[2017-02-15] MEDS ORDERED: PREDNISONE50 MG PO (11:53)
[2017-02-15 12:20] VITALS: BP 131/76
== END 2017-02-15 12:20 | disposition home or self-care (01) ==
LOC: EME → EDBD 09:00 → EME 12:20
PROVIDERS: Emergency Medicine
DX: J44.9 Chronic obstructive pulmonary disease, unspecified (principal); D86.9 Sarcoidosis, unspecified; I10 Essential (primary) hypertension; Z87.891 Personal history of nicotine dependence; Z87.442 Personal history of urinary calculi
CPT/HCPCS: 71020; 80048; 84484; 85027; 93005; 94644; 99281; 99285; J7512; J7644

== ENCOUNTER 2017-02-16 07:30 | Emergency (ER) | payer OTHER ==
[~2017-02-16] VITALS: Ht 172.7 cm; Wt 81.6 kg
[~2017-02-16 07:30] MED LIST changes: +AZITHROMYCIN250 MG1 PO
[2017-02-16 08:05] LABS: HEMATOCRIT 33.2 % (36.0-46.0); MCH 26.4 PG (29.0-34.0); MCHC 30.4 G/DL (30.0-36.0); MCV 86.7 FL (83-99); MEAN PLAT.VOLUME 11.3 uM^3 (9.5-12.4); PLATELET COUNT 176 K/uL (156-360); RBC DIS.WIDTH-CV 17.5 % (11.8-14.6); RBC DIS.WIDTH-SD 55.4 % (39-53); RED BLOOD COUNT 3.83 M/uL (3.80-5.20); WHITE BLOOD COUNT 6.7 K/uL (4.1-10.2)
[2017-02-16 08:36] LABS: ANION GAP 6 MEQ/L (2-14); CHLORIDE 110 MEQ/L (99-109); POTASSIUM 3.9 MEQ/L (3.7-5.4); SAMPLE HEMOLYSIS CHECK 0; SAMPLE ICTERIC CHECK 0; SAMPLE LIPEMIA CHECK 0; SODIUM 143 MEQ/L (136-147)
[2017-02-16 08:42] LABS: GFR ESTIMATE (CALCULATED) > 59 mL/min/; GLUCOSE 89 mg/dL (70-99); QUANTITATIVE HCG < 4.0 MIU/ML; TROP-I INTERPRETATION NEGATIVE; TROPONIN-I < 0.01 ng/mL (0.0-0.30); UREA NITROGEN (BUN) 17 mg/dL (9-23)
[2017-02-16 12:56] LABS: ADD MEDTOX COMMENT Y; AMPHETAMINE NEGATIVE (500 ng/mL); BARBITURATES NEGATIVE (200 ng/mL); BENZODIAZEPINES NEGATIVE (150 ng/mL); COCAINE PRESUMPTIVE POSITIVE (150 ng/mL); INTERNAL CONTROLS VALID? YES; METHADONE NEGATIVE (200 ng/mL); METHAMPHETAMINE NEGATIVE (500 ng/mL); OPIATES (MORPHINE) NEGATIVE (100 ng/mL); OXYCODONE NEGATIVE (100 ng/mL); PHENCYCLIDINE NEGATIVE (25 ng/mL); PROPOXYPHENE NEGATIVE (300 ng/mL); THC CANNABINOIDS NEGATIVE (50 ng/mL); TRICYCLIC ANTIDEPRESSANTS NEGATIVE (300 ng/mL)
[2017-02-16 13:17] VITALS: BP 128/84
== END 2017-02-16 13:17 | disposition home or self-care (01) ==
LOC: EME 07:30
PROVIDERS: Emergency Medicine
DX: J44.1 Chronic obstructive pulmonary disease with (acute) exacerbation (principal); D86.9 Sarcoidosis, unspecified; I10 Essential (primary) hypertension; Z87.891 Personal history of nicotine dependence; Z87.442 Personal history of urinary calculi
CPT/HCPCS: 71020; 80048; 84484; 84702; 84999; 85027; 93005; 94644; 99281; 99284; J1885; J2930; J7644

== ENCOUNTER 2017-02-19 13:37 | Emergency (ER) | payer OTHER ==
[~2017-02-19] VITALS: Ht 172.7 cm; Wt 89.5 kg
[2017-02-19] MEDS ORDERED: ZITHROMAX Z-PA250 MG PO (14:19)
[2017-02-19] MEDS ORDERED: PREDNISONE20 MG PO (14:19)
[2017-02-19] MEDS ORDERED: VENTOLIN HFA18 GM IH (14:19)
[2017-02-19 14:52] VITALS: BP 124/73
== END 2017-02-19 14:52 | disposition home or self-care (01) ==
LOC: EME 13:37
DX: J44.9 Chronic obstructive pulmonary disease, unspecified (principal); D86.9 Sarcoidosis, unspecified; I10 Essential (primary) hypertension; Z87.891 Personal history of nicotine dependence; Z87.442 Personal history of urinary calculi
CPT/HCPCS: 93005; 94640; 99281; 99283; J1100; J7512; J7644

== ENCOUNTER 2017-03-02 13:44 | Inpatient (IN) | payer OTHER ==
[~2017-03-02] VITALS: Ht 172.7 cm; Wt 97.2 kg
[2017-03-02 14:51] LABS: MCH 26.2 PG (29.0-34.0); MCHC 31.3 G/DL (30.0-36.0); MCV 83.9 FL (83-99); RBC DIS.WIDTH-CV 16.6 % (11.8-14.6); RBC DIS.WIDTH-SD 51.1 % (39-53); WHITE BLOOD COUNT 6.4 K/uL (4.1-10.2)
[2017-03-02 14:57] LABS: CHLORIDE 106 mEq/L (99-109); POTASSIUM 4.3 mEq/L (3.7-5.4); SODIUM 138 mEq/L (136-147)
[2017-03-02 14:59] LABS: GLUCOSE 161 mg/dL (70-99)
[2017-03-02 15:00] LABS: ANION GAP 9 MEQ/L (2-14)
[2017-03-02 15:03] LABS: GFR ESTIMATE (CALCULATED) > 59 mL/min/
[2017-03-02 15:04] LABS: UREA NITROGEN (BUN) 16 mg/dL (9-23)
[2017-03-02 15:10] LABS: TROP-I INTERPRETATION NEGATIVE; TROPONIN-I < 0.01 ng/mL (0.0-0.30)
[2017-03-02 15:13] LABS: QUANTITATIVE HCG < 4.0 MIU/ML
[2017-03-02 15:45] LABS: MEAN PLAT.VOLUME 12.3 uM^3 (9.5-12.4); PLAT.SUFFICIENCY ADEQUATE
[2017-03-02 15:58] LABS: PLATELET COUNT 262 K/uL (156-360); RED BLOOD COUNT 4.65 M/uL (3.80-5.20)
[2017-03-02 19:44] VITALS: BP 129/77
[2017-03-02 21:23] LABS: TROP-I INTERPRETATION NEGATIVE; TROPONIN-I 0.03 ng/mL (0.0-0.30)
[2017-03-03 03:25] LABS: HEMATOCRIT 34.1 % (36.0-46.0); MCH 26.2 PG (29.0-34.0); MCHC 31.4 G/DL (30.0-36.0); MCV 83.4 FL (83-99); MEAN PLAT.VOLUME 11.9 uM^3 (9.5-12.4); PLATELET COUNT 271 K/uL (156-360); RBC DIS.WIDTH-CV 16.3 % (11.8-14.6); RBC DIS.WIDTH-SD 49.8 % (39-53); RED BLOOD COUNT 4.09 M/uL (3.80-5.20)
[2017-03-03 03:33] LABS: CHLORIDE 110 mEq/L (99-109); POTASSIUM 4.1 mEq/L (3.7-5.4); SODIUM 137 mEq/L (136-147)
[2017-03-03 03:35] LABS: GLUCOSE 165 mg/dL (70-99)
[2017-03-03 03:36] LABS: ANION GAP 3 MEQ/L (2-14)
[2017-03-03 03:37] LABS: TOTAL BILIRUBIN 0.3 mg/dL (0.0-1.0)
[2017-03-03 03:39] LABS: ALKALINE PHOSPHATASE 96 IU/L (3-129); GFR ESTIMATE (CALCULATED) > 59 mL/min/
[2017-03-03 03:40] LABS: UREA NITROGEN (BUN) 14 mg/dL (9-23)
[2017-03-03 03:45] LABS: TROP-I INTERPRETATION NEGATIVE; TROPONIN-I < 0.01 ng/mL (0.0-0.30)
[2017-03-03 06:57] LABS: Estimated Average Glucose 134 mg/dL (70-123); HEMOGLOBIN A1c (GLYCOHEMOGLOB) 6.3 % HGB (Below 5.7)
[2017-03-03 11:47] LABS: HBSG INDEX 0.19; HPCA INDEX 0.17
[2017-03-03 11:48] LABS: ANTI-HEPATITIS A VIRUS (IGM) Nonreactive; HAV INDEX 0.18
[2017-03-03 11:50] LABS: ANTI-HEPATITIS B CORE (IGM) Nonreactive; HBC IgM INDEX 0.07; HIV INDEX 0.17; HIV-1/2 AB/AG COMBO Nonreactive
[2017-03-03 12:13] VITALS: BP 137/71
[2017-03-03 16:52] VITALS: BP 148/67
[2017-03-03 20:00] VITALS: BP 120/58
[2017-03-04] VITALS: BP 121/58
[2017-03-04 03:14] VITALS: BP 130/63
[2017-03-04 04:00] VITALS: BP 130/63
[2017-03-04 07:16] VITALS: BP 131/83
[2017-03-04 11:53] VITALS: BP 136/79
[2017-03-04] MEDS ORDERED: PREDNISONE10 MG PO (12:00)
[2017-03-04] MEDS ORDERED: ALBUTEROL2.5 MG/3 M IH (12:32)
[2017-03-04] MEDS ORDERED: DUONEB 2.5-0.5 M3 ML AEROSOL (12:32)
[2017-03-04] MEDS ORDERED: PROVENTIL HFA6.7 GM IH (12:32)
== END 2017-03-04 16:20 | disposition home or self-care (01) | DRG 192 ==
LOC: EME 13:44 → EDOF 17:52 → ENRESERV 17:53 → 5WEST 19:35 → CANRESERV 03-03 10:25 → ENRESERV 03-03 10:25 → 5WEST 03-04 16:20
PROVIDERS: Emergency Medicine; Internal Medicine
DX: J44.1 Chronic obstructive pulmonary disease with (acute) exacerbation (principal); D86.9 Sarcoidosis, unspecified; F32.9 Major depressive disorder, single episode, unspecified; I10 Essential (primary) hypertension; F14.10 Cocaine abuse, uncomplicated; Z99.81 Dependence on supplemental oxygen; Z80.1 Family history of malignant neoplasm of trachea, bronchus and lung; Z87.442 Personal history of urinary calculi
CPT/HCPCS: 71010; 80048; 80053; 80074; 80306 90; 83036; 84484; 84702; 85027; 86703; 93005; 94640; 94640 76; 94644; 94799; 99202; 99281; 99285; G0378; J1644; J2930; J7644

== ENCOUNTER 2017-03-13 19:08 | Emergency (ER) | payer OTHER ==
[~2017-03-13] VITALS: Ht 165.1 cm; Wt 80.5 kg
[2017-03-13] MEDS ORDERED: PREDNISONE20 MG PO (21:20)
[2017-03-13 22:29] VITALS: BP 112/67
== END 2017-03-13 22:32 | disposition home or self-care (01) ==
LOC: EME 19:08
DX: J44.1 Chronic obstructive pulmonary disease with (acute) exacerbation (principal); J45.901 Unspecified asthma with (acute) exacerbation; Z87.891 Personal history of nicotine dependence; Z99.81 Dependence on supplemental oxygen
CPT/HCPCS: 94640; 94640 76; 99281; 99285; J7512

== ENCOUNTER 2017-03-25 10:03 | Inpatient (IN) | payer OTHER ==
[~2017-03-25] VITALS: Ht 172.7 cm; Wt 97.6 kg
[2017-03-25 10:58] LABS: BASOPHIL COUNT 0.1 K/uL (0-0.1); EOSINOPHIL (%) 5.1 % (0-5); EOSINOPHIL COUNT 0.3 K/uL (0-0.3); IMMATURE GRANULOCYTE (%) 0.8 % (0.0-0.7); INSTRUMENT ABS NEUTROPHIL CT 2.3 K/uL; LYMPHOCYTE COUNT 1.4 K/uL (1.0-2.8); MCH 26.5 PG (29.0-34.0); MCHC 30.3 G/DL (30.0-36.0); MEAN PLAT.VOLUME 11.6 uM^3 (9.5-12.4); MONOCYTE (%) 18.9 % (3-12); NEUTROPHIL (%) 46.1 % (45-76); NEUTROPHIL COUNT 2.3 K/uL (1.8-6.4); PLATELET COUNT 256 K/uL (156-360); RBC DIS.WIDTH-CV 18.7 % (11.8-14.6); RBC DIS.WIDTH-SD 59.4 % (39-53); RED BLOOD COUNT 4.45 M/uL (3.80-5.20); WHITE BLOOD COUNT 5.1 K/uL (4.1-10.2)
[2017-03-25 11:01] LABS: MCV 87.6 FL (83-99)
[2017-03-25 11:03] LABS: CHLORIDE 106 mEq/L (99-109); POTASSIUM 4.4 mEq/L (3.7-5.4); SODIUM 141 mEq/L (136-147)
[2017-03-25 11:04] LABS: GLUCOSE 52 mg/dL (70-99)
[2017-03-25 11:06] LABS: ANION GAP 11 MEQ/L (2-14)
[2017-03-25 11:08] LABS: GFR ESTIMATE (CALCULATED) > 59 mL/min/
[2017-03-25 11:09] LABS: UREA NITROGEN (BUN) 19 mg/dL (9-23)
[2017-03-25] MEDS ORDERED: PROVENTIL,2.5 MG/3 M IH (13:00)
[2017-03-25] MEDS ORDERED: PERCOCET 10/1 TABLET PO (13:01)
[2017-03-25] MEDS ORDERED: CLARITIN,ALAVAR10 MG PO (13:02)
[2017-03-25] MEDS ORDERED: FEOSOL325 MG PO (13:03)
[2017-03-25] MEDS ORDERED: SPIRIVA1 INHALATI IH (13:03)
[2017-03-25] MEDS ORDERED: PROAIR HFA8.5 GM IH (13:04)
[2017-03-25 15:30] VITALS: BP 129/66
[2017-03-25 19:26] VITALS: BP 136/86
[2017-03-26 00:30] VITALS: BP 134/82
[2017-03-26 04:22] VITALS: BP 147/94
[2017-03-26 07:30] VITALS: BP 126/80
[2017-03-26 11:15] LABS: INFLUENZA A VIRAL ANTIGEN NEGATIVE; INFLUENZA B VIRAL ANTIGEN NEGATIVE
[2017-03-26 12:17] VITALS: BP 133/64
[2017-03-26 19:55] VITALS: BP 133/72
[2017-03-26 23:42] VITALS: BP 146/73
[2017-03-27 03:37] VITALS: BP 150/78
[2017-03-27 05:12] LABS: EOSINOPHIL (%) 0 % (0-5); HEMATOCRIT 34.4 % (36.0-46.0); IMMATURE GRANULOCYTE (%) 1.5 % (0.0-0.7); IMMATURE GRANULOCYTE COUNT 0.3 K/uL; INSTRUMENT ABS NEUTROPHIL CT 15.2 K/uL; LYMPHOCYTE COUNT 0.8 K/uL (1.0-2.8); MCH 26.5 PG (29.0-34.0); MCHC 30.8 G/DL (30.0-36.0); MEAN PLAT.VOLUME 12.1 uM^3 (9.5-12.4); MONOCYTE (%) 1.2 % (3-12); MONOCYTE COUNT 0.2 K/uL (0-0.8); NEUTROPHIL (%) 92.6 % (45-76); NEUTROPHIL COUNT 15.2 K/uL (1.8-6.4); PLATELET COUNT 266 K/uL (156-360); RBC DIS.WIDTH-CV 18.6 % (11.8-14.6); RBC DIS.WIDTH-SD 58.4 % (39-53); WHITE BLOOD COUNT 16.4 K/uL (4.1-10.2)
[2017-03-27 05:34] LABS: ALKALINE PHOSPHATASE 91 IU/L (3-129); ANION GAP 7 MEQ/L (2-14); CHLORIDE 108 MEQ/L (99-109); GFR ESTIMATE (CALCULATED) > 59 mL/min/; POTASSIUM 4.4 MEQ/L (3.7-5.4); SAMPLE HEMOLYSIS CHECK 0; SAMPLE ICTERIC CHECK 0; SAMPLE LIPEMIA CHECK 0; SODIUM 139 MEQ/L (136-147); TOTAL BILIRUBIN 0.3 MG/DL (0.0-1.0); UREA NITROGEN (BUN) 22 mg/dL (9-23)
[2017-03-27 05:41] LABS: GLUCOSE 163 mg/dL (70-99)
[2017-03-27 07:58] VITALS: BP 132/77
[2017-03-27 11:06] VITALS: BP 137/92
[2017-03-27] MEDS ORDERED: ZITHROMAX500 MG PO (11:08)
[2017-03-27] MEDS ORDERED: PREDNISONE10 MG PO (11:08)
[2017-03-27] MEDS ORDERED: CEFTIN500 MG PO (11:08)
[2017-03-27 16:14] VITALS: BP 151/73
== END 2017-03-27 18:34 | disposition home or self-care (01) | DRG 190 ==
LOC: EME 10:03 → EDOF 12:56 → 5WEST 12:56 → ENRESERV 13:01 → 5WEST 15:16 → CANRESERV 03-26 14:44 → ENRESERV 03-26 14:44 → 5WEST 03-27 18:34
PROVIDERS: Emergency Medicine; Hospitalist
DX: J44.1 Chronic obstructive pulmonary disease with (acute) exacerbation (principal); J96.21 Acute and chronic respiratory failure with hypoxia; J45.51 Severe persistent asthma with (acute) exacerbation; J44.0 Chronic obstructive pulmonary disease with (acute) lower respiratory infection; J20.9 Acute bronchitis, unspecified; D86.9 Sarcoidosis, unspecified; I10 Essential (primary) hypertension; D50.9 Iron deficiency anemia, unspecified; Z99.81 Dependence on supplemental oxygen; Z87.891 Personal history of nicotine dependence; Z87.442 Personal history of urinary calculi; Z82.5 Family history of asthma and other chronic lower respiratory diseases; Z80.1 Family history of malignant neoplasm of trachea, bronchus and lung; Z23 Encounter for immunization
CPT/HCPCS: 71010; 80048; 80053; 85025; 87502; 90686; 93005; 94640; 94640 76; 94799; 99202; 99281; 99284; G0378; J0696; J1100; J1650; J2930; J7050; J7512; J7644

== ENCOUNTER 2017-04-23 20:13 | Emergency (ER) | payer OTHER ==
[~2017-04-23] VITALS: Ht 172.7 cm; Wt 97.0 kg
[~2017-04-23 20:13] MED LIST changes: +CLARITIN,ALAVAR10 MG PO; +FEOSOL325 MG PO; +ZITHROMAX500 MG PO
[2017-04-23 20:45] LABS: HEMATOCRIT 37.1 % (36.0-46.0); MCH 27.6 PG (29.0-34.0); MCHC 31.5 G/DL (30.0-36.0); MCV 87.5 FL (83-99); MEAN PLAT.VOLUME 11.3 uM^3 (9.5-12.4); PLATELET COUNT 205 K/uL (156-360); RBC DIS.WIDTH-CV 19.4 % (11.8-14.6); RBC DIS.WIDTH-SD 62.4 % (39-53); RED BLOOD COUNT 4.24 M/uL (3.80-5.20); WHITE BLOOD COUNT 6.7 K/uL (4.1-10.2)
[2017-04-23 20:58] LABS: CHLORIDE 105 mEq/L (99-109); GLUCOSE 88 mg/dL (70-99); POTASSIUM 3.9 mEq/L (3.7-5.4); SODIUM 141 mEq/L (136-147)
[2017-04-23 21:00] LABS: ANION GAP 8 MEQ/L (2-14)
[2017-04-23 21:02] LABS: GFR ESTIMATE (CALCULATED) > 59 mL/min/
[2017-04-23 21:03] LABS: UREA NITROGEN (BUN) 11 mg/dL (9-23)
[2017-04-23 21:10] LABS: D-DIMER ELISA < 150.00 ng/mLDDU (<230)
[2017-04-23 21:32] LABS: TROP-I INTERPRETATION NEGATIVE; TROPONIN-I < 0.01 ng/mL (0.0-0.30)
[2017-04-23] MEDS ORDERED: PREDNISONE20 MG PO (22:43)
[2017-04-23 23:01] VITALS: BP 142/85
== END 2017-04-23 23:22 | disposition home or self-care (01) ==
LOC: EME → EDBD 20:13 → EME 23:22
PROVIDERS: Emergency Medicine
DX: J44.1 Chronic obstructive pulmonary disease with (acute) exacerbation (principal); D86.9 Sarcoidosis, unspecified; F17.200 Nicotine dependence, unspecified, uncomplicated; Z99.81 Dependence on supplemental oxygen; I10 Essential (primary) hypertension; F41.9 Anxiety disorder, unspecified; Z88.6 Allergy status to analgesic agent
CPT/HCPCS: 71020; 80048; 80048 91; 84484; 85027; 85379; 94640; 94640 76; 99281; 99285; J1100; J7040; J7644

== ENCOUNTER 2017-04-28 05:24 | Emergency (ER) | payer OTHER ==
[~2017-04-28] VITALS: Ht 172.7 cm; Wt 99.6 kg
[2017-04-28 09:37] VITALS: BP 142/98
[2017-04-29] MEDS ORDERED: OXYCODONE-ACET500 ML PO (17:35)
[2017-04-29] MEDS ORDERED: PHENERGAN-CODE120 ML PO (17:53)
== END 2017-04-28 11:24 | disposition home or self-care (01) ==
LOC: EME 05:24
DX: J45.901 Unspecified asthma with (acute) exacerbation (principal); I10 Essential (primary) hypertension; Z87.891 Personal history of nicotine dependence; Z99.81 Dependence on supplemental oxygen; F41.9 Anxiety disorder, unspecified; Z88.6 Allergy status to analgesic agent
CPT/HCPCS: 71020; 94644; 99281; 99285; J1100; J7030; J7644

== ENCOUNTER 2017-04-29 14:05 | Emergency (ER) | payer OTHER ==
[~2017-04-29] VITALS: Ht 167.6 cm; Wt 102.3 kg
[2017-04-29 14:23] LABS: BASE EXCESS 3.2 mEq/L (-3 to +3); BICARBONATE 27.9 mEq/L (22-26); CARBOXY HGB 3.9 % (0-5); COMMENTS - BLOOD GASES A+C+; DEVICE 980; FI02 100 %; METHEMOGLOBIN 0.8 % (0-1.5); MODE SPONT; PCO2 42 mm Hg (35-45); PO2 554 mm Hg (80-100); SITE LR; pH 7.43 (7.35-7.45)
[2017-04-29 14:24] LABS: PEEP 5 CM/H20; PRES. SUPPORT 10 CM/H2O; TOTAL RESP RATE 40 resp/min
[2017-04-29 14:56] LABS: EOSINOPHIL (%) 0.1 % (0-5); HEMATOCRIT 36.2 % (36.0-46.0); IMMATURE GRANULOCYTE (%) 0.2 % (0.0-0.7); INSTRUMENT ABS NEUTROPHIL CT 6.3 K/uL; LYMPHOCYTE COUNT 1.6 K/uL (1.0-2.8); MCH 27.5 PG (29.0-34.0); MCHC 30.9 G/DL (30.0-36.0); MCV 88.9 FL (83-99); MEAN PLAT.VOLUME 11.4 uM^3 (9.5-12.4); MONOCYTE (%) 9.6 % (3-12); MONOCYTE COUNT 0.9 K/uL (0-0.8); NEUTROPHIL (%) 71.4 % (45-76); NEUTROPHIL COUNT 6.3 K/uL (1.8-6.4); PLATELET COUNT 188 K/uL (156-360); RBC DIS.WIDTH-CV 19.7 % (11.8-14.6); RBC DIS.WIDTH-SD 63.7 % (39-53); RED BLOOD COUNT 4.07 M/uL (3.80-5.20); WHITE BLOOD COUNT 8.8 K/uL (4.1-10.2)
[2017-04-29 15:03] LABS: CHLORIDE 109 mEq/L (99-109); SODIUM 141 mEq/L (136-147)
[2017-04-29 15:05] LABS: GLUCOSE 113 mg/dL (70-99)
[2017-04-29 15:06] LABS: ANION GAP 6 MEQ/L (2-14)
[2017-04-29 15:09] LABS: GFR ESTIMATE (CALCULATED) > 59 mL/min/
[2017-04-29 15:10] LABS: UREA NITROGEN (BUN) 13 mg/dL (9-23)
[2017-04-29] MEDS ORDERED: OXYCODONE-ACET500 ML PO (17:35)
[2017-04-29] MEDS ORDERED: PHENERGAN-CODE120 ML PO (17:53)
[2017-04-29 17:54] VITALS: BP 127/80
[2017-04-30] MEDS ORDERED: PREDNISONE50 MG PO (08:18)
[2017-04-30] MEDS ORDERED: TESSALON PERLE100 MG PO (08:28)
== END 2017-04-29 18:25 | disposition home or self-care (01) ==
LOC: EME 14:05
PROVIDERS: Emergency Medicine
DX: J45.909 Unspecified asthma, uncomplicated (principal); D86.9 Sarcoidosis, unspecified; I10 Essential (primary) hypertension; F41.9 Anxiety disorder, unspecified; Z87.442 Personal history of urinary calculi; Z87.891 Personal history of nicotine dependence; Z88.5 Allergy status to narcotic agent; Z88.6 Allergy status to analgesic agent
CPT/HCPCS: 36600; 71010; 80048; 82803; 85025; 94644; 99281; 99285; J0171; J1100; J7644

== ENCOUNTER 2017-04-30 07:04 | Emergency (ER) | payer OTHER ==
[~2017-04-30] VITALS: Ht 172.7 cm; Wt 100.9 kg
[~2017-04-30 07:04] MED LIST changes: +OXYCODONE-ACET500 ML PO; +PHENERGAN-CODE120 ML PO
[2017-04-30] MEDS ORDERED: PREDNISONE50 MG PO (08:18)
[2017-04-30] MEDS ORDERED: TESSALON PERLE100 MG PO (08:28)
[2017-04-30 09:13] VITALS: BP 159/105
== END 2017-04-30 09:14 | disposition home or self-care (01) ==
LOC: EME 07:04
DX: J44.1 Chronic obstructive pulmonary disease with (acute) exacerbation (principal); Z99.81 Dependence on supplemental oxygen; I10 Essential (primary) hypertension; D86.9 Sarcoidosis, unspecified; Z87.891 Personal history of nicotine dependence; F41.9 Anxiety disorder, unspecified; Z88.6 Allergy status to analgesic agent
CPT/HCPCS: 94640; 99281; 99285; J1100; J1885; J7644

== ENCOUNTER 2017-05-04 07:13 | Emergency (ER) | payer OTHER ==
[~2017-05-04] VITALS: Ht 172.7 cm; Wt 100.0 kg
[2017-05-04 08:16] LABS: EOSINOPHIL (%) 0.5 % (0-5); EOSINOPHIL COUNT 0.1 K/uL (0-0.3); HEMATOCRIT 37.3 % (36.0-46.0); IMMATURE GRANULOCYTE (%) 0.5 % (0.0-0.7); IMMATURE GRANULOCYTE COUNT 0.1 K/uL; INSTRUMENT ABS NEUTROPHIL CT 6.9 K/uL; LYMPHOCYTE COUNT 1.7 K/uL (1.0-2.8); MCH 27.6 PG (29.0-34.0); MCHC 31.4 G/DL (30.0-36.0); MEAN PLAT.VOLUME 11.6 uM^3 (9.5-12.4); MONOCYTE (%) 9.1 % (3-12); MONOCYTE COUNT 0.9 K/uL (0-0.8); NEUTROPHIL (%) 72.4 % (45-76); NEUTROPHIL COUNT 6.9 K/uL (1.8-6.4); PLATELET COUNT 241 K/uL (156-360); RBC DIS.WIDTH-CV 19.1 % (11.8-14.6); RBC DIS.WIDTH-SD 61.7 % (39-53); RED BLOOD COUNT 4.24 M/uL (3.80-5.20); WHITE BLOOD COUNT 9.6 K/uL (4.1-10.2)
[2017-05-04 08:56] LABS: ALKALINE PHOSPHATASE 97 IU/L (3-129); ANION GAP 2 MEQ/L (2-14); CHLORIDE 104 MEQ/L (99-109); GFR ESTIMATE (CALCULATED) > 59 mL/min/; GLUCOSE 132 mg/dL (70-99); SAMPLE HEMOLYSIS CHECK 1; SAMPLE ICTERIC CHECK 0; SAMPLE LIPEMIA CHECK 0; SODIUM 139 MEQ/L (136-147); TOTAL BILIRUBIN 0.6 MG/DL (0.0-1.0); UREA NITROGEN (BUN) 24 mg/dL (9-23)
[2017-05-04] MEDS ORDERED: MUCINEX DM ER1 EACH PO (10:44)
[2017-05-04] MEDS ORDERED: PREDNISONE20 MG PO (10:44)
[2017-05-04] MEDS ORDERED: ALBUTEROL2.5 MG/3 M IH (10:44)
[2017-05-04] MEDS ORDERED: PROVENTIL HFA6.7 GM IH (10:44)
[2017-05-04 11:02] VITALS: BP 133/89
== END 2017-05-04 11:03 | disposition home or self-care (01) ==
LOC: EME 07:13
PROVIDERS: Emergency Medicine
DX: J40 Bronchitis, not specified as acute or chronic (principal); J44.9 Chronic obstructive pulmonary disease, unspecified; J45.909 Unspecified asthma, uncomplicated; I10 Essential (primary) hypertension; D86.9 Sarcoidosis, unspecified; Z87.442 Personal history of urinary calculi; D64.9 Anemia, unspecified; Z87.891 Personal history of nicotine dependence; Z99.81 Dependence on supplemental oxygen; F41.9 Anxiety disorder, unspecified
CPT/HCPCS: 71020; 80053; 85025; 93005; 93970; 99281; 99284; J1100; J7644

== ENCOUNTER 2017-05-13 18:57 | Emergency (ER) | payer OTHER ==
[~2017-05-13] VITALS: Ht 172.7 cm; Wt 95.5 kg
[~2017-05-13 18:57] MED LIST changes: +MUCINEX DM ER1 EACH PO
[2017-05-13 20:08] LABS: MCH 28.2 PG (29.0-34.0); MCHC 31.5 G/DL (30.0-36.0); MCV 89.5 FL (83-99); RBC DIS.WIDTH-CV 19.2 % (11.8-14.6); RBC DIS.WIDTH-SD 61.6 % (39-53); RED BLOOD COUNT 4.58 M/uL (3.80-5.20); WHITE BLOOD COUNT 7.8 K/uL (4.1-10.2)
[2017-05-13 20:17] LABS: CHLORIDE 105 mEq/L (99-109); SODIUM 141 mEq/L (136-147)
[2017-05-13 20:18] LABS: GLUCOSE 120 mg/dL (70-99)
[2017-05-13 20:20] LABS: ANION GAP 12 MEQ/L (2-14)
[2017-05-13 20:22] LABS: GFR ESTIMATE (CALCULATED) > 59 mL/min/
[2017-05-13 20:23] LABS: UREA NITROGEN (BUN) 16 mg/dL (9-23)
[2017-05-13 20:57] LABS: PLAT.SUFFICIENCY ADEQUATE; PLATELET CLUMPS PRESENT - PLATELET COUNT APPEARS ADQ.; PLATELET COUNT UNABLE TO REPORT K/uL (156-360)
[2017-05-13] MEDS ORDERED: PREDNISONE20 MG PO (21:44)
[2017-05-13 22:24] VITALS: BP 132/86
== END 2017-05-13 22:25 | disposition home or self-care (01) ==
LOC: RME 18:57 → EME 18:57 → RME 22:25
DX: J44.1 Chronic obstructive pulmonary disease with (acute) exacerbation (principal); F11.10 Opioid abuse, uncomplicated; Z99.81 Dependence on supplemental oxygen; D86.9 Sarcoidosis, unspecified; I10 Essential (primary) hypertension; Z87.891 Personal history of nicotine dependence; F41.9 Anxiety disorder, unspecified; Z88.6 Allergy status to analgesic agent
CPT/HCPCS: 71020; 80048; 85027; 94640; 99281; 99284; J1100; J7644

== ENCOUNTER 2017-05-15 01:01 | Emergency (ER) | payer OTHER ==
[~2017-05-15] VITALS: Ht 375.9 cm; Wt 102.3 kg
[2017-05-15 07:00] VITALS: BP 126/66
== END 2017-05-15 06:57 | disposition home or self-care (01) ==
LOC: EME → EDBD 01:01 → EME 01:01
DX: R06.00 Dyspnea, unspecified (principal); D86.9 Sarcoidosis, unspecified; Z99.81 Dependence on supplemental oxygen; J44.9 Chronic obstructive pulmonary disease, unspecified; I10 Essential (primary) hypertension; Z87.891 Personal history of nicotine dependence
CPT/HCPCS: 94640; 99281; 99284; J7644

== ENCOUNTER 2017-05-29 16:03 | Emergency (ER) | payer OTHER ==
[~2017-05-29] VITALS: Ht 172.7 cm; Wt 106.9 kg
[2017-05-29] MEDS ORDERED: CLONIDINE HCL0.1 MG PO (16:57)
[2017-05-29] MEDS ORDERED: PHENERGAN25 MG PR (16:57)
[2017-05-29 18:03] VITALS: BP 134/83
== END 2017-05-29 18:20 | disposition home or self-care (01) ==
LOC: EME 16:03
DX: F11.23 Opioid dependence with withdrawal (principal); J44.9 Chronic obstructive pulmonary disease, unspecified; Z99.81 Dependence on supplemental oxygen; I10 Essential (primary) hypertension; D86.9 Sarcoidosis, unspecified; Z87.891 Personal history of nicotine dependence; F41.9 Anxiety disorder, unspecified
CPT/HCPCS: 99281; 99284; J1100; J2550; J7644

== ENCOUNTER 2017-05-31 09:05 | Emergency (ER) | payer OTHER ==
[~2017-05-31] VITALS: Ht 172.7 cm; Wt 105.5 kg
[~2017-05-31 09:05] MED LIST changes: +CLONIDINE HCL0.1 MG PO; +PHENERGAN25 MG PR
[2017-05-31] MEDS ORDERED: ALBUTEROL2.5 MG/3 M IH (11:48)
[2017-05-31] MEDS ORDERED: VENTOLIN HFA18 GM IH (11:48)
[2017-05-31] MEDS ORDERED: PREDNISONE20 MG PO (11:48)
[2017-05-31 12:06] VITALS: BP 168/115
== END 2017-05-31 12:07 | disposition home or self-care (01) ==
LOC: EME 09:05
DX: J44.1 Chronic obstructive pulmonary disease with (acute) exacerbation (principal); I10 Essential (primary) hypertension; D86.9 Sarcoidosis, unspecified; F41.9 Anxiety disorder, unspecified; Z87.891 Personal history of nicotine dependence; Z99.81 Dependence on supplemental oxygen; Z88.5 Allergy status to narcotic agent; Z88.6 Allergy status to analgesic agent
CPT/HCPCS: 71020; 93005; 94640; 99281; 99284; J7512

== ENCOUNTER 2017-06-05 22:43 | Emergency (ER) | payer OTHER ==
[~2017-06-05] VITALS: Ht 165.1 cm; Wt 90.8 kg
[2017-06-06] MEDS ORDERED: AZITHROMYCIN250 MG PO (00:33)
[2017-06-06] MEDS ORDERED: SERTRALINE HCL100 MG PO (00:33)
[2017-06-06 01:00] VITALS: BP 158/95
== END 2017-06-06 01:01 | disposition home or self-care (01) ==
LOC: EME → EDBD 22:43 → EME 22:43
DX: J45.901 Unspecified asthma with (acute) exacerbation (principal); J20.9 Acute bronchitis, unspecified; D86.9 Sarcoidosis, unspecified; I10 Essential (primary) hypertension; F41.9 Anxiety disorder, unspecified; F17.200 Nicotine dependence, unspecified, uncomplicated; Z99.81 Dependence on supplemental oxygen; Z87.442 Personal history of urinary calculi; Z88.5 Allergy status to narcotic agent; Z88.6 Allergy status to analgesic agent
CPT/HCPCS: 71020; 94644; 99281; 99284; J1100; J7644

== ENCOUNTER 2017-06-08 23:48 | Emergency (ER) | payer OTHER ==
[~2017-06-08] VITALS: Ht 172.7 cm; Wt 94.7 kg
[2017-06-09] MEDS ORDERED: PREDNISONE20 MG PO (03:08)
[2017-06-09] MEDS ORDERED: PROMETHAZINE HC25 M1 PO (03:08)
[2017-06-09 04:30] VITALS: BP 130/77
== END 2017-06-09 04:30 | disposition home or self-care (01) ==
LOC: EME 23:48
DX: J45.909 Unspecified asthma, uncomplicated (principal); I10 Essential (primary) hypertension; F41.9 Anxiety disorder, unspecified; Z87.891 Personal history of nicotine dependence; Z99.81 Dependence on supplemental oxygen; Z88.5 Allergy status to narcotic agent; Z88.6 Allergy status to analgesic agent
CPT/HCPCS: 94640; 99281; 99285; J7512; J7644; Q0169

== ENCOUNTER 2017-06-13 11:53 | Inpatient (IN) | payer OTHER ==
[~2017-06-13] VITALS: Ht 172.7 cm; Wt 100.1 kg
[~2017-06-13 11:53] MED LIST changes: +PROMETHAZINE HC25 M1 PO
[2017-06-13 13:24] LABS: HEMATOCRIT 42.9 % (36.0-46.0); HEMOGLOBIN 13.1 G/DL (11.9-15.5); MCH 28.2 PG (29.0-34.0); MCHC 30.5 G/DL (30.0-36.0); MCV 92.5 FL (83-99); RBC DIS.WIDTH-CV 16.2 % (11.8-14.6); RBC DIS.WIDTH-SD 55.5 % (39-53); RED BLOOD COUNT 4.64 M/uL (3.80-5.20); WHITE BLOOD COUNT 14.2 K/uL (4.1-10.2)
[2017-06-13 13:33] LABS: ALBUMIN 3.7 g/dL (3.2-4.8); CHLORIDE 104 mEq/L (99-109); SODIUM 141 mEq/L (136-147)
[2017-06-13 13:35] LABS: GLUCOSE 95 mg/dL (70-99); TOTAL PROTEIN 6.7 g/dL (6.4-8.3)
[2017-06-13 13:37] LABS: TOTAL BILIRUBIN 0.9 mg/dL (0.0-1.0)
[2017-06-13 13:39] LABS: ALKALINE PHOSPHATASE 96 IU/L (3-129); CREATININE 1.2 mg/dL (0.6-1.3); GFR ESTIMATE (CALCULATED) > 59 mL/min/
[2017-06-13 13:40] LABS: AST (GOT) 17 IU/L (2-34); UREA NITROGEN (BUN) 24 mg/dL (9-23)
[2017-06-13 13:42] LABS: ALT (GPT) 16 IU/L (3-49)
[2017-06-13 13:44] LABS: TROP-I INTERPRETATION NEGATIVE; TROPONIN-I 0.07 ng/mL (0.0-0.30)
[2017-06-13 15:01] LABS: PLAT.SUFFICIENCY ADEQUATE; PLATELET COUNT 231 K/uL (156-360)
[2017-06-13] MEDS ORDERED: CATAPRES-TTS 11 EACH TD (17:19)
[2017-06-13] MEDS ORDERED: PROMETHAZINE HC25 M1 PO (17:20)
[2017-06-13] MEDS ORDERED: ADVIL,NUPRIN,M200 MG PO (17:21)
[2017-06-13] MEDS ORDERED: PHENERGAN25 MG PR (17:21)
[2017-06-13 18:36] VITALS: BP 126/53
[2017-06-13 20:13] VITALS: BP 117/59
[2017-06-14 00:07] VITALS: BP 124/58
[2017-06-14 03:55] VITALS: BP 129/78
[2017-06-14 06:11] LABS: BASOPHIL (%) 0 % (0-1); EOSINOPHIL (%) 0 % (0-5); HEMATOCRIT 36.6 % (36.0-46.0); HEMOGLOBIN 11.2 G/DL (11.9-15.5); IMMATURE GRANULOCYTE (%) 0.3 % (0.0-0.7); LYMPHOCYTE (%) 7.9 % (15-42); LYMPHOCYTE COUNT 0.7 K/uL (1.0-2.8); MCH 28.2 PG (29.0-34.0); MCHC 30.6 G/DL (30.0-36.0); MCV 92.2 FL (83-99); MONOCYTE (%) 5.8 % (3-12); MONOCYTE COUNT 0.5 K/uL (0-0.8); PLATELET COUNT 183 K/uL (156-360); RBC DIS.WIDTH-CV 16.2 % (11.8-14.6); RBC DIS.WIDTH-SD 54.7 % (39-53); RED BLOOD COUNT 3.97 M/uL (3.80-5.20); WHITE BLOOD COUNT 9.3 K/uL (4.1-10.2)
[2017-06-14 06:38] LABS: CHLORIDE 109 MEQ/L (99-109); CREATININE 0.8 MG/DL (0.6-1.3); GFR ESTIMATE (CALCULATED) > 59 mL/min/; POTASSIUM 4.8 MEQ/L (3.7-5.4); SODIUM 140 MEQ/L (136-147); UREA NITROGEN (BUN) 19 mg/dL (9-23)
[2017-06-14 06:41] LABS: GLUCOSE 173 mg/dL (70-99)
[2017-06-14 07:10] VITALS: BP 133/72
[2017-06-14 11:00] VITALS: BP 131/89
[2017-06-14 14:58] VITALS: BP 127/72
[2017-06-15 00:05] VITALS: BP 138/74
[2017-06-15 07:05] VITALS: BP 138/86
[2017-06-15 15:10] VITALS: BP 134/81
[2017-06-15 23:26] VITALS: BP 113/58
[2017-06-16 07:25] LABS: ALBUMIN 2.7 G/DL (3.2-4.8); CHLORIDE 111 MEQ/L (99-109); GFR ESTIMATE (CALCULATED) 53 mL/min/; PHOSPHORUS 2.8 mg/dL (2.5-4.9); SODIUM 144 MEQ/L (136-147); UREA NITROGEN (BUN) 12 mg/dL (9-23); VANCOMYCIN, TROUGH 26.4 MCG/ML (10-20)
[2017-06-16 07:32] LABS: CREATININE 1.4 MG/DL (0.6-1.3); GLUCOSE 86 mg/dL (70-99)
[2017-06-16 07:35] VITALS: BP 143/98
[2017-06-16 15:34] VITALS: BP 140/94
[2017-06-17 00:44] VITALS: BP 168/91
[2017-06-17 07:06] LABS: HEMATOCRIT 38.7 % (36.0-46.0); HEMOGLOBIN 12.1 G/DL (11.9-15.5); MCH 27.9 PG (29.0-34.0); MCHC 31.3 G/DL (30.0-36.0); MCV 89.2 FL (83-99); RBC DIS.WIDTH-CV 15.8 % (11.8-14.6); RBC DIS.WIDTH-SD 51.4 % (39-53); RED BLOOD COUNT 4.34 M/uL (3.80-5.20); WHITE BLOOD COUNT 6.9 K/uL (4.1-10.2)
[2017-06-17 07:13] LABS: CHLORIDE 106 MEQ/L (99-109); CREATININE 1.3 MG/DL (0.6-1.3); GFR ESTIMATE (CALCULATED) 58 mL/min/; GLUCOSE 85 mg/dL (70-99); SODIUM 143 MEQ/L (136-147); UREA NITROGEN (BUN) 8 mg/dL (9-23)
[2017-06-17 07:39] LABS: PLAT.SUFFICIENCY ADEQUATE; PLATELET COUNT 193 K/uL (156-360)
[2017-06-17 08:39] VITALS: BP 143/90
[2017-06-17 16:31] VITALS: BP 134/72
[2017-06-18 00:14] VITALS: BP 151/81
[2017-06-18 08:13] VITALS: BP 160/85
[2017-06-18 16:54] VITALS: BP 144/94
[2017-06-19 00:19] VITALS: BP 147/94
[2017-06-19 07:07] LABS: HEMOGLOBIN 12.9 G/DL (11.9-15.5); MCH 27.7 PG (29.0-34.0); MCHC 31.5 G/DL (30.0-36.0); RBC DIS.WIDTH-CV 15.4 % (11.8-14.6); RBC DIS.WIDTH-SD 49.1 % (39-53); RED BLOOD COUNT 4.66 M/uL (3.80-5.20); WHITE BLOOD COUNT 9.5 K/uL (4.1-10.2)
[2017-06-19 07:38] LABS: PLAT.SUFFICIENCY DECREASED; PLATELET COUNT 190 K/uL (156-360)
[2017-06-19 07:47] LABS: CHLORIDE 104 MEQ/L (99-109); CREATININE 1.4 MG/DL (0.6-1.3); GFR ESTIMATE (CALCULATED) 53 mL/min/; POTASSIUM 4.2 MEQ/L (3.7-5.4); SODIUM 138 MEQ/L (136-147); UREA NITROGEN (BUN) 10 mg/dL (9-23)
[2017-06-19 07:51] LABS: GLUCOSE 137 mg/dL (70-99)
[2017-06-19 09:13] VITALS: BP 140/88
[2017-06-19] MEDS ORDERED: PREDNISONE10 MG PO (11:39)
[2017-06-19] MEDS ORDERED: DUONEB 2.5-0.5 M3 ML AEROSOL (11:39)
[2017-06-19] MEDS ORDERED: PERCOCET 10/1 TABLET PO (11:39)
[2017-06-19] MEDS ORDERED: DOXYCYCLINE HY100 MG PO (11:39)
[2017-06-19] MEDS ORDERED: NICOTINE PATCH1 EAC2 TD (11:39)
[2017-06-19] MEDS ORDERED: PROAIR HFA8.5 GM IH (11:39)
[2017-06-19 12:40] VITALS: BP 144/71
== END 2017-06-19 13:47 | disposition home or self-care (01) | DRG 177 ==
LOC: EME 11:53 → 5SOUTH 15:00 → EDOF 15:00 → ENRESERV 15:06 → CANRESERV 15:17 → ENRESERV 15:17 → 5SOUTH 18:22 → ENPENDDIS 06-19 → 5SOUTH 06-19 13:47
PROVIDERS: Emergency Medicine; Internal Medicine; Nurse Practitioner Adult Health
DX: J15.212 Pneumonia due to Methicillin resistant Staphylococcus aureus (principal); J96.21 Acute and chronic respiratory failure with hypoxia; N17.9 Acute kidney failure, unspecified; J44.0 Chronic obstructive pulmonary disease with (acute) lower respiratory infection; J45.901 Unspecified asthma with (acute) exacerbation; F33.9 Major depressive disorder, recurrent, unspecified; J44.1 Chronic obstructive pulmonary disease with (acute) exacerbation; D86.9 Sarcoidosis, unspecified; D86.0 Sarcoidosis of lung; E66.9 Obesity, unspecified; Z91.19 Patient's noncompliance with other medical treatment and regimen; F17.210 Nicotine dependence, cigarettes, uncomplicated; F41.9 Anxiety disorder, unspecified; I10 Essential (primary) hypertension; J20.9 Acute bronchitis, unspecified; Z99.81 Dependence on supplemental oxygen; Z68.33 Body mass index [BMI] 33.0-33.9, adult; Z88.5 Allergy status to narcotic agent; Z79.51 Long term (current) use of inhaled steroids; Z87.442 Personal history of urinary calculi; Z87.01 Personal history of pneumonia (recurrent); Z83.3 Family history of diabetes mellitus; Z82.49 Family history of ischemic heart disease and other diseases of the circulatory system
CPT/HCPCS: 71045; 71046; 80048; 80053; 80069; 80202; 80306 90; 83605; 84484; 85025; 85027; 87040; 87070; 87077; 87147; 87181; 87186; 87205; 87449; 87502; 87641; 90686; 93005; 94640; 94640 76; 94760; 94799; 99202; 99281; 99285; J1650; J1956; J2270; J2543; J2930; J3370; J7030; J7050; J7512; J7644

== ENCOUNTER 2017-07-08 09:37 | Emergency (ER) | payer OTHER ==
[~2017-07-08] VITALS: Ht 172.7 cm; Wt 104.5 kg
[~2017-07-08 09:37] MED LIST changes: +ADVIL,NUPRIN,M200 MG PO; +CATAPRES-TTS 11 EACH TD
[2017-07-08] MEDS ORDERED: PREDNISONE20 MG PO (10:01)
[2017-07-08] MEDS ORDERED: PROVENTIL HFA6.7 GM IH (10:01)
[2017-07-08 15:15] VITALS: BP 140/90
== END 2017-07-08 15:33 | disposition home or self-care (01) ==
LOC: EME 09:37
DX: J44.1 Chronic obstructive pulmonary disease with (acute) exacerbation (principal); J06.9 Acute upper respiratory infection, unspecified; R91.1 Solitary pulmonary nodule; F17.200 Nicotine dependence, unspecified, uncomplicated; Z71.6 Tobacco abuse counseling; Z99.81 Dependence on supplemental oxygen; I10 Essential (primary) hypertension; F41.9 Anxiety disorder, unspecified; Z88.6 Allergy status to analgesic agent
CPT/HCPCS: 71046; 93005; 94640; 94644; 94799; 99281; 99284; J7512; J7644

== ENCOUNTER 2017-07-12 14:08 | Emergency (ER) | payer OTHER ==
[~2017-07-12] VITALS: Ht 172.7 cm; Wt 101.5 kg
[2017-07-12 15:00] LABS: BASOPHIL COUNT 0.1 K/uL (0-0.1); EOSINOPHIL (%) 2.4 % (0-5); EOSINOPHIL COUNT 0.2 K/uL (0-0.3); HEMOGLOBIN 10.8 G/DL (11.9-15.5); IMMATURE GRANULOCYTE (%) 0.3 % (0.0-0.7); LYMPHOCYTE COUNT 1.2 K/uL (1.0-2.8); MCH 29.3 PG (29.0-34.0); MCHC 31.8 G/DL (30.0-36.0); MCV 92.1 FL (83-99); MONOCYTE (%) 12.8 % (3-12); MONOCYTE COUNT 0.9 K/uL (0-0.8); NEUTROPHIL (%) 66.5 % (45-76); NEUTROPHIL COUNT 4.7 K/uL (1.8-6.4); PLATELET COUNT 162 K/uL (156-360); RBC DIS.WIDTH-CV 15.2 % (11.8-14.6); RBC DIS.WIDTH-SD 51.6 % (39-53); RED BLOOD COUNT 3.69 M/uL (3.80-5.20)
[2017-07-12 15:04] LABS: ALBUMIN 3.6 g/dL (3.2-4.8); CHLORIDE 107 mEq/L (99-109); POTASSIUM 3.7 mEq/L (3.7-5.4); SODIUM 145 mEq/L (136-147)
[2017-07-12 15:06] LABS: GLUCOSE 74 mg/dL (70-99); TOTAL PROTEIN 6.1 g/dL (6.4-8.3)
[2017-07-12 15:08] LABS: TOTAL BILIRUBIN 1.1 mg/dL (0.0-1.0)
[2017-07-12 15:10] LABS: ALKALINE PHOSPHATASE 123 IU/L (3-129); CREATININE 0.8 mg/dL (0.6-1.3); GFR ESTIMATE (CALCULATED) > 59 mL/min/
[2017-07-12 15:11] LABS: AST (GOT) 22 IU/L (2-34); UREA NITROGEN (BUN) 17 mg/dL (9-23)
[2017-07-12 15:13] LABS: ALT (GPT) 20 IU/L (3-49)
[2017-07-12 15:15] LABS: TROP-I INTERPRETATION NEGATIVE; TROPONIN-I < 0.01 ng/mL (0.0-0.30)
[2017-07-12] MEDS ORDERED: LEVAQUIN750 MG PO (17:53)
[2017-07-12] MEDS ORDERED: PREDNISONE20 MG PO (18:16)
[2017-07-12] MEDS ORDERED: PERCOCET 10/1 TABLET PO (18:16)
[2017-07-12] MEDS ORDERED: DUONEB 2.5-0.5 M3 ML AEROSOL (19:39)
[2017-07-12 19:46] VITALS: BP 125/75
== END 2017-07-12 20:01 | disposition home or self-care (01) ==
LOC: EME 14:08
PROVIDERS: Emergency Medicine
DX: J18.9 Pneumonia, unspecified organism (principal); J44.0 Chronic obstructive pulmonary disease with (acute) lower respiratory infection; D86.9 Sarcoidosis, unspecified; Z72.0 Tobacco use; I10 Essential (primary) hypertension; F41.9 Anxiety disorder, unspecified; Z87.442 Personal history of urinary calculi; Z88.5 Allergy status to narcotic agent; Z88.6 Allergy status to analgesic agent
CPT/HCPCS: 71046; 80053; 84484; 85025; 94640; 94640 76; 99281; 99284; J7512; J7644

== ENCOUNTER 2017-07-16 10:06 | Emergency (ER) | payer OTHER ==
[~2017-07-16] VITALS: Ht 172.7 cm; Wt 106.1 kg
[2017-07-16 10:36] LABS: BASOPHIL (%) 0.1 % (0-1); EOSINOPHIL (%) 0 % (0-5); HEMOGLOBIN 11.4 G/DL (11.9-15.5); IMMATURE GRANULOCYTE (%) 1.2 % (0.0-0.7); LYMPHOCYTE (%) 7.9 % (15-42); LYMPHOCYTE COUNT 0.6 K/uL (1.0-2.8); MCH 28.9 PG (29.0-34.0); MCHC 31.7 G/DL (30.0-36.0); MCV 91.4 FL (83-99); MONOCYTE (%) 11.2 % (3-12); MONOCYTE COUNT 0.9 K/uL (0-0.8); NEUTROPHIL (%) 79.6 % (45-76); NEUTROPHIL COUNT 6.1 K/uL (1.8-6.4); PLATELET COUNT 206 K/uL (156-360); RBC DIS.WIDTH-CV 15.5 % (11.8-14.6); RBC DIS.WIDTH-SD 51.7 % (39-53); RED BLOOD COUNT 3.94 M/uL (3.80-5.20); WHITE BLOOD COUNT 7.7 K/uL (4.1-10.2)
[2017-07-16 10:45] LABS: CHLORIDE 106 mEq/L (99-109); POTASSIUM 4.1 mEq/L (3.7-5.4); SODIUM 141 mEq/L (136-147)
[2017-07-16 10:47] LABS: GLUCOSE 110 mg/dL (70-99)
[2017-07-16 10:51] LABS: CREATININE 0.9 mg/dL (0.6-1.3); GFR ESTIMATE (CALCULATED) > 59 mL/min/
[2017-07-16 10:54] LABS: UREA NITROGEN (BUN) 33 mg/dL (9-23)
[2017-07-16] MEDS ORDERED: PREDNISONE50 MG PO (12:52)
[2017-07-16 13:41] VITALS: BP 150/100
[2017-07-17] MEDS ORDERED: PREDNISONE10 MG PO (18:51)
== END 2017-07-16 13:42 | disposition home or self-care (01) ==
LOC: EME 10:06
PROVIDERS: Emergency Medicine
DX: J45.901 Unspecified asthma with (acute) exacerbation (principal); J44.1 Chronic obstructive pulmonary disease with (acute) exacerbation; F17.200 Nicotine dependence, unspecified, uncomplicated; Z99.81 Dependence on supplemental oxygen; I10 Essential (primary) hypertension; F41.9 Anxiety disorder, unspecified; D86.9 Sarcoidosis, unspecified; Z88.6 Allergy status to analgesic agent
CPT/HCPCS: 71045; 80048; 85025; 94640; 94640 76; 99281; 99284; J1100; J7512; J7644

== ENCOUNTER 2017-07-17 15:17 | Inpatient (IN) | payer OTHER ==
[~2017-07-17] VITALS: Ht 172.7 cm; Wt 111.8 kg
[2017-07-17 17:07] LABS: HEMATOCRIT 36.8 % (36.0-46.0); HEMOGLOBIN 11.6 G/DL (11.9-15.5); MCH 28.9 PG (29.0-34.0); MCHC 31.5 G/DL (30.0-36.0); MCV 91.8 FL (83-99); RBC DIS.WIDTH-CV 15.7 % (11.8-14.6); RBC DIS.WIDTH-SD 51.4 % (39-53); RED BLOOD COUNT 4.01 M/uL (3.80-5.20); WHITE BLOOD COUNT 9.8 K/uL (4.1-10.2)
[2017-07-17 17:18] LABS: CHLORIDE 106 mEq/L (99-109); POTASSIUM 3.8 mEq/L (3.7-5.4); SODIUM 142 mEq/L (136-147)
[2017-07-17 17:20] LABS: GLUCOSE 98 mg/dL (70-99)
[2017-07-17 17:24] LABS: CREATININE 0.8 mg/dL (0.6-1.3); GFR ESTIMATE (CALCULATED) > 59 mL/min/
[2017-07-17 17:25] LABS: UREA NITROGEN (BUN) 30 mg/dL (9-23)
[2017-07-17 17:54] LABS: PLAT.SUFFICIENCY ADEQUATE; PLATELET COUNT 203 K/uL (156-360)
[2017-07-17] MEDS ORDERED: PREDNISONE10 MG PO (18:51)
[2017-07-17 21:21] LABS: BASE EXCESS 6.1 mEq/L (-3 to +3); BICARBONATE 32.5 mEq/L (22-26); CARBOXY HGB 3.1 % (0-5); COMMENTS - BLOOD GASES C+A+; FI02 21 %; O2 FLOW 0 L/MIN; PCO2 55 mm Hg (35-45); PO2 52 mm Hg (80-100); SITE RR; pH 7.38 (7.35-7.45)
[2017-07-17 22:38] LABS: ALBUMIN 3.4 g/dL (3.2-4.8)
[2017-07-17 22:41] LABS: TOTAL PROTEIN 5.2 g/dL (6.4-8.3)
[2017-07-17 22:46] LABS: AST (GOT) 23 IU/L (2-34); DIRECT BILIRUBIN 0.2 mg/dL (0.0-0.3)
[2017-07-17 22:47] LABS: ALKALINE PHOSPHATASE 86 IU/L (3-129); ALT (GPT) 31 IU/L (3-49); TOTAL BILIRUBIN 0.4 mg/dL (0.0-1.0)
[2017-07-17 23:49] VITALS: BP 144/85
[2017-07-18 04:56] VITALS: BP 130/80
[2017-07-18 06:26] LABS: BASOPHIL (%) 0.1 % (0-1); EOSINOPHIL (%) 0 % (0-5); HEMATOCRIT 37.3 % (36.0-46.0); HEMOGLOBIN 11.3 G/DL (11.9-15.5); IMMATURE GRANULOCYTE (%) 1.1 % (0.0-0.7); LYMPHOCYTE COUNT 0.5 K/uL (1.0-2.8); MCH 27.9 PG (29.0-34.0); MCHC 30.3 G/DL (30.0-36.0); MCV 92.1 FL (83-99); MONOCYTE (%) 2.9 % (3-12); MONOCYTE COUNT 0.2 K/uL (0-0.8); NEUTROPHIL (%) 89.9 % (45-76); NEUTROPHIL COUNT 7.1 K/uL (1.8-6.4); PLATELET COUNT 213 K/uL (156-360); RBC DIS.WIDTH-CV 15.8 % (11.8-14.6); RBC DIS.WIDTH-SD 53.8 % (39-53); RED BLOOD COUNT 4.05 M/uL (3.80-5.20); WHITE BLOOD COUNT 7.9 K/uL (4.1-10.2)
[2017-07-18 06:53] LABS: CHLORIDE 104 MEQ/L (99-109); CREATININE 0.7 MG/DL (0.6-1.3); GFR ESTIMATE (CALCULATED) > 59 mL/min/; POTASSIUM 4.5 MEQ/L (3.7-5.4); SODIUM 138 MEQ/L (136-147); UREA NITROGEN (BUN) 25 mg/dL (9-23)
[2017-07-18 06:55] LABS: GLUCOSE 210 mg/dL (70-99)
[2017-07-18 08:00] VITALS: BP 144/80
[2017-07-18 12:00] VITALS: BP 139/82
[2017-07-18 15:55] VITALS: BP 137/79
[2017-07-18 19:53] VITALS: BP 139/67
[2017-07-19] VITALS (7 sets, daily range): BP systolic 139–154; BP diastolic 73–86
[2017-07-19 06:35] LABS: HEMATOCRIT 37.7 % (36.0-46.0); HEMOGLOBIN 11.6 G/DL (11.9-15.5); MCH 28.2 PG (29.0-34.0); MCHC 30.8 G/DL (30.0-36.0); MCV 91.5 FL (83-99); RBC DIS.WIDTH-CV 15.9 % (11.8-14.6); RBC DIS.WIDTH-SD 52.7 % (39-53); RED BLOOD COUNT 4.12 M/uL (3.80-5.20); WHITE BLOOD COUNT 14.1 K/uL (4.1-10.2)
[2017-07-19 06:59] LABS: CHLORIDE 103 MEQ/L (99-109); CREATININE 0.8 MG/DL (0.6-1.3); GFR ESTIMATE (CALCULATED) > 59 mL/min/; GLUCOSE 168 mg/dL (70-99); POTASSIUM 4.5 MEQ/L (3.7-5.4); SODIUM 139 MEQ/L (136-147); UREA NITROGEN (BUN) 23 mg/dL (9-23)
[2017-07-19 07:22] LABS: PLAT.SUFFICIENCY ADEQUATE; PLATELET COUNT 250 K/uL (156-360)
[2017-07-20 04:55] VITALS: BP 162/85
[2017-07-20 07:01] LABS: HEMATOCRIT 38.7 % (36.0-46.0); HEMOGLOBIN 11.9 G/DL (11.9-15.5); MCH 28.3 PG (29.0-34.0); MCHC 30.7 G/DL (30.0-36.0); MCV 91.9 FL (83-99); RBC DIS.WIDTH-CV 15.9 % (11.8-14.6); RBC DIS.WIDTH-SD 53.2 % (39-53); RED BLOOD COUNT 4.21 M/uL (3.80-5.20); WHITE BLOOD COUNT 16.5 K/uL (4.1-10.2)
[2017-07-20 07:23] LABS: CHLORIDE 104 MEQ/L (99-109); CREATININE 0.7 MG/DL (0.6-1.3); GFR ESTIMATE (CALCULATED) > 59 mL/min/; GLUCOSE 146 mg/dL (70-99); POTASSIUM 4.4 MEQ/L (3.7-5.4); SODIUM 137 MEQ/L (136-147); UREA NITROGEN (BUN) 22 mg/dL (9-23)
[2017-07-20 07:32] LABS: PLAT.SUFFICIENCY ADEQUATE; PLATELET COUNT 248 K/uL (156-360)
[2017-07-20 07:46] VITALS: BP 151/90
[2017-07-20 16:30] VITALS: BP 148/90
[2017-07-20 23:50] VITALS: BP 150/71
[2017-07-21 06:31] LABS: HEMATOCRIT 41.3 % (36.0-46.0); HEMOGLOBIN 12.6 G/DL (11.9-15.5); MCH 28.1 PG (29.0-34.0); MCHC 30.5 G/DL (30.0-36.0); RBC DIS.WIDTH-CV 15.9 % (11.8-14.6); RED BLOOD COUNT 4.49 M/uL (3.80-5.20); WHITE BLOOD COUNT 21.5 K/uL (4.1-10.2)
[2017-07-21 06:55] LABS: PLAT.SUFFICIENCY ADEQUATE; PLATELET COUNT 255 K/uL (156-360)
[2017-07-21 08:26] VITALS: BP 133/67
[2017-07-21] MEDS ORDERED: LEVOFLOXACIN750 MG PO (10:50)
[2017-07-21] MEDS ORDERED: DUONEB 2.5-0.5 M3 ML AEROSOL (10:50)
[2017-07-21] MEDS ORDERED: PERCOCET 10/1 TABLET PO (10:50)
[2017-07-21] MEDS ORDERED: PREDNISONE10 MG PO (10:50)
== END 2017-07-21 11:50 | disposition home health service (06) | DRG 189 ==
LOC: EME 15:17 → EDOF 21:14 → 5SOUTH 21:14 → ENRESERV 21:17 → 5SOUTH 23:26
PROVIDERS: Emergency Medicine; Hospitalist; Internal Medicine
DX: J96.21 Acute and chronic respiratory failure with hypoxia (principal); J44.0 Chronic obstructive pulmonary disease with (acute) lower respiratory infection; J18.9 Pneumonia, unspecified organism; I27.29 Other secondary pulmonary hypertension; J44.1 Chronic obstructive pulmonary disease with (acute) exacerbation; I10 Essential (primary) hypertension; F17.210 Nicotine dependence, cigarettes, uncomplicated; J45.901 Unspecified asthma with (acute) exacerbation; G89.4 Chronic pain syndrome; D50.9 Iron deficiency anemia, unspecified; Z91.19 Patient's noncompliance with other medical treatment and regimen; Z99.81 Dependence on supplemental oxygen; F12.90 Cannabis use, unspecified, uncomplicated; J84.10 Pulmonary fibrosis, unspecified; D86.0 Sarcoidosis of lung; I27.81 Cor pulmonale (chronic); Z86.14 Personal history of Methicillin resistant Staphylococcus aureus infection
CPT/HCPCS: 36600; 71045; 71046; 80048; 80076; 80202; 82803; 84145 90; 85025; 85027; 85379; 87040; 87070; 87205; 87449; 87502; 93005; 94640; 94640 76; 94644; 94799; 99202; 99281; 99284; 99285; J0456; J0692; J0696; J1100; J1650; J2930; J3370; J3475; J7512; J7644

== ENCOUNTER 2017-08-03 12:20 | Emergency (ER) | payer OTHER ==
[~2017-08-03] VITALS: Ht 172.7 cm; Wt 110.5 kg
[2017-08-03 13:38] LABS: CHLORIDE 103 mEq/L (99-109); POTASSIUM 4.1 mEq/L (3.7-5.4); SODIUM 141 mEq/L (136-147)
[2017-08-03 13:40] LABS: GLUCOSE 95 mg/dL (70-99)
[2017-08-03 13:42] LABS: HEMATOCRIT 33.6 % (36.0-46.0); MCH 29.1 PG (29.0-34.0); MCHC 30.7 G/DL (30.0-36.0); MCV 94.9 FL (83-99); RBC DIS.WIDTH-CV 16.6 % (11.8-14.6); RBC DIS.WIDTH-SD 58.2 % (39-53); WHITE BLOOD COUNT 9.1 K/uL (4.1-10.2)
[2017-08-03 13:44] LABS: CREATININE 0.7 mg/dL (0.6-1.3); GFR ESTIMATE (CALCULATED) > 59 mL/min/
[2017-08-03 13:45] LABS: UREA NITROGEN (BUN) 15 mg/dL (9-23)
[2017-08-03 14:12] LABS: HEMOGLOBIN 10.3 G/DL (11.9-15.5); RED BLOOD COUNT 3.54 M/uL (3.80-5.20)
[2017-08-03 14:16] LABS: BASOPHIL (%) 0.3 % (0-1); EOSINOPHIL (%) 3.1 % (0-5); EOSINOPHIL COUNT 0.3 K/uL (0-0.3); IMMATURE GRANULOCYTE (%) 0.3 % (0.0-0.7); LYMPHOCYTE (%) 9.5 % (15-42); LYMPHOCYTE COUNT 0.9 K/uL (1.0-2.8); MONOCYTE (%) 5.7 % (3-12); MONOCYTE COUNT 0.5 K/uL (0-0.8); NEUTROPHIL (%) 81.1 % (45-76); NEUTROPHIL COUNT 7.4 K/uL (1.8-6.4); PLAT.SUFFICIENCY ADEQUATE
[2017-08-03 14:17] LABS: PLATELET COUNT 149 K/uL (156-360)
[2017-08-03] MEDS ORDERED: ZITHROMAX Z-PA250 MG PO (14:48)
[2017-08-03] MEDS ORDERED: PRINIVIL10 MG PO (14:48)
[2017-08-03] MEDS ORDERED: PREDNISONE50 MG PO (14:48)
[2017-08-03 15:39] VITALS: BP 169/110
== END 2017-08-03 15:42 | disposition home or self-care (01) ==
LOC: EME 12:20
PROVIDERS: Emergency Medicine
DX: J20.9 Acute bronchitis, unspecified (principal); J44.0 Chronic obstructive pulmonary disease with (acute) lower respiratory infection; I10 Essential (primary) hypertension; F17.200 Nicotine dependence, unspecified, uncomplicated; Z99.81 Dependence on supplemental oxygen; T46.5X6A Underdosing of other antihypertensive drugs, initial encounter; Z91.128 Patient's intentional underdosing of medication regimen for other reason; D86.9 Sarcoidosis, unspecified; F41.9 Anxiety disorder, unspecified; Z88.6 Allergy status to analgesic agent
CPT/HCPCS: 71045; 80048; 85025; 93005; 94640; 94640 76; 99202; 99281; 99284; J1100; J7512; J7644

== ENCOUNTER 2017-08-15 20:17 | Emergency (ER) | payer OTHER ==
[~2017-08-15] VITALS: Ht 172.7 cm; Wt 100.0 kg
[2017-08-15 20:17] VITALS: BP 138/65
[~2017-08-15 20:17] MED LIST changes: +PRINIVIL10 MG PO
[2017-08-15] MEDS ORDERED: PROVENTIL,2.5 MG/3 M IH (21:34)
[2017-08-15] MEDS ORDERED: PREDNISONE50 MG PO (21:34)
== END 2017-08-15 21:32 | disposition home or self-care (01) ==
LOC: EME → EDBD 20:17 → EME 21:32
DX: J44.1 Chronic obstructive pulmonary disease with (acute) exacerbation (principal); F17.200 Nicotine dependence, unspecified, uncomplicated; Z99.81 Dependence on supplemental oxygen; I10 Essential (primary) hypertension; D86.9 Sarcoidosis, unspecified; F41.9 Anxiety disorder, unspecified; Z88.5 Allergy status to narcotic agent; Z88.6 Allergy status to analgesic agent
CPT/HCPCS: 71046; 80048; 85027; 93005; J1100; J7644

== ENCOUNTER 2017-08-18 22:55 | Emergency (ER) | payer OTHER ==
[~2017-08-18] VITALS: Ht 172.7 cm; Wt 109.5 kg
[2017-08-18 23:28] LABS: BASOPHIL (%) 0.5 % (0-1); EOSINOPHIL (%) 0.9 % (0-5); EOSINOPHIL COUNT 0.1 K/uL (0-0.3); HEMATOCRIT 34.9 % (36.0-46.0); HEMOGLOBIN 10.9 G/DL (11.9-15.5); IMMATURE GRANULOCYTE (%) 0.9 % (0.0-0.7); LYMPHOCYTE (%) 29.9 % (15-42); LYMPHOCYTE COUNT 2.4 K/uL (1.0-2.8); MCH 29.3 PG (29.0-34.0); MCHC 31.2 G/DL (30.0-36.0); MCV 93.8 FL (83-99); MONOCYTE (%) 12.5 % (3-12); NEUTROPHIL (%) 55.3 % (45-76); NEUTROPHIL COUNT 4.3 K/uL (1.8-6.4); PLATELET COUNT 191 K/uL (156-360); RBC DIS.WIDTH-CV 16.1 % (11.8-14.6); RBC DIS.WIDTH-SD 55.7 % (39-53); RED BLOOD COUNT 3.72 M/uL (3.80-5.20); WHITE BLOOD COUNT 7.9 K/uL (4.1-10.2)
[2017-08-18 23:40] LABS: CHLORIDE 109 mEq/L (99-109); POTASSIUM 3.9 mEq/L (3.7-5.4); SODIUM 144 mEq/L (136-147)
[2017-08-18 23:42] LABS: GLUCOSE 91 mg/dL (70-99)
[2017-08-18 23:46] LABS: CREATININE 0.9 mg/dL (0.6-1.3); GFR ESTIMATE (CALCULATED) > 59 mL/min/
[2017-08-18 23:47] LABS: UREA NITROGEN (BUN) 20 mg/dL (9-23)
[2017-08-18 23:48] LABS: TROP-I INTERPRETATION NEGATIVE; TROPONIN-I 0.03 ng/mL (0.0-0.30)
[2017-08-19] MEDS ORDERED: PREDNISONE10 M1 PO (01:09)
[2017-08-19] MEDS ORDERED: ALBUTEROL2.5 MG/3 M IH (01:11)
[2017-08-19 02:01] VITALS: BP 136/92
[2017-08-19] MEDS ORDERED: SUBOXONE 8 MG-1 EAC2 SL (17:27)
[2017-08-19] MEDS ORDERED: SUBOXONE 12 MG1 EACH SL (17:28)
[2017-08-19] MEDS ORDERED: PREDNISONE10 MG PO (17:33)
[2017-08-20] MEDS ORDERED: FEOSOL325 MG PO (10:52)
[2017-08-20] MEDS ORDERED: CLARITIN,ALAVAR10 MG PO (10:52)
[2017-08-20] MEDS ORDERED: PREDNISONE10 MG PO (10:52)
[2017-08-20] MEDS ORDERED: ADVAIR HFA120 INHALA IH (10:52)
[2017-08-20] MEDS ORDERED: SPIRIVA1 INHALATI IH (10:52)
[2017-08-20] MEDS ORDERED: PROAIR HFA8.5 GM IH (10:53)
[2017-08-20] MEDS ORDERED: ALBUTEROL2.5 MG/3 M IH (10:53)
== END 2017-08-19 01:57 | disposition home or self-care (01) ==
LOC: EME 22:55
PROVIDERS: Emergency Medicine
DX: J44.1 Chronic obstructive pulmonary disease with (acute) exacerbation (principal); F17.200 Nicotine dependence, unspecified, uncomplicated; Z99.81 Dependence on supplemental oxygen; D86.9 Sarcoidosis, unspecified; I10 Essential (primary) hypertension; F41.9 Anxiety disorder, unspecified; Z88.6 Allergy status to analgesic agent; Z88.5 Allergy status to narcotic agent
CPT/HCPCS: 71046; 80048; 84484; 85025; 87502; 93005; 94640; 94640 76; 99281; 99285; J7512; J7644

== ENCOUNTER 2017-08-19 12:32 | Observation (INO) | payer OTHER ==
[~2017-08-19] VITALS: Ht 172.7 cm; Wt 108.1 kg
[2017-08-19 15:03] LABS: HEMATOCRIT 37.8 % (36.0-46.0); MCHC 31.7 G/DL (30.0-36.0); MCV 91.3 FL (83-99); RBC DIS.WIDTH-CV 15.6 % (11.8-14.6); RBC DIS.WIDTH-SD 52.7 % (39-53); RED BLOOD COUNT 4.14 M/uL (3.80-5.20); WHITE BLOOD COUNT 11.4 K/uL (4.1-10.2)
[2017-08-19 15:19] LABS: ALBUMIN 3.7 g/dL (3.2-4.8); CHLORIDE 105 mEq/L (99-109); POTASSIUM 4.4 mEq/L (3.7-5.4); SODIUM 140 mEq/L (136-147)
[2017-08-19 15:22] LABS: TOTAL PROTEIN 6.6 g/dL (6.4-8.3)
[2017-08-19 15:23] LABS: TOTAL BILIRUBIN 0.5 mg/dL (0.0-1.0)
[2017-08-19 15:25] LABS: ALKALINE PHOSPHATASE 89 IU/L (3-129); CREATININE 0.8 mg/dL (0.6-1.3); GFR ESTIMATE (CALCULATED) > 59 mL/min/; GLUCOSE 117 mg/dL (70-99)
[2017-08-19 15:26] LABS: UREA NITROGEN (BUN) 22 mg/dL (9-23)
[2017-08-19 15:27] LABS: AST (GOT) 15 IU/L (2-34)
[2017-08-19 15:28] LABS: ALT (GPT) 21 IU/L (3-49)
[2017-08-19 15:30] LABS: APPEARANCE CLEAR ((CLEAR)); BILIRUBIN NEGATIVE; BLOOD NEGATIVE; COLOR YELLOW ((YELLOW)); GLUCOSE (STRIP) NEGATIVE; KETONES NEGATIVE; LEUKOCYTES NEGATIVE; NITRITE NEGATIVE; PROTEIN (STRIP) 30; SPECIFIC GRAVITY 1.021 (1.000-1.030); UCUL ADDED? NO; UROBILINOGEN 0.2 MG/DL (0.2-1.0)
[2017-08-19 15:36] LABS: QUANTITATIVE HCG < 4.0 MIU/ML
[2017-08-19 15:53] LABS: PLAT.SUFFICIENCY ADEQUATE; PLATELET COUNT 205 K/uL (156-360)
[2017-08-19 15:55] LABS: AMPHETAMINE NEGATIVE (500 ng/mL); BARBITURATES NEGATIVE (200 ng/mL); BENZODIAZEPINES NEGATIVE (150 ng/mL); BUPRENORPHINE PRESUMPTIVE POSITIVE (10 ng/mL); COCAINE NEGATIVE (150 ng/mL); METHADONE NEGATIVE (200 ng/mL); METHAMPHETAMINE NEGATIVE (500 ng/mL); OPIATES (MORPHINE) NEGATIVE (100 ng/mL); OXYCODONE NEGATIVE (100 ng/mL); PHENCYCLIDINE NEGATIVE (25 ng/mL); PROPOXYPHENE NEGATIVE (300 ng/mL); THC CANNABINOIDS NEGATIVE (50 ng/mL); TRICYCLIC ANTIDEPRESSANTS NEGATIVE (300 ng/mL)
[2017-08-19 17:04] LABS: D-DIMER ELISA < 150.00 ng/mLDDU (<230)
[2017-08-19] MEDS ORDERED: SUBOXONE 8 MG-1 EAC2 SL (17:27)
[2017-08-19] MEDS ORDERED: SUBOXONE 12 MG1 EACH SL (17:28)
[2017-08-19] MEDS ORDERED: PREDNISONE10 MG PO (17:33)
[2017-08-19 17:52] VITALS: BP 152/91
[2017-08-19 18:45] LABS: TROP-I INTERPRETATION NEGATIVE; TROPONIN-I < 0.01 ng/mL (0.0-0.30)
[2017-08-20 00:33] VITALS: BP 136/70
[2017-08-20 02:56] LABS: HEMATOCRIT 34.3 % (36.0-46.0); HEMOGLOBIN 10.9 G/DL (11.9-15.5); MCHC 31.8 G/DL (30.0-36.0); MCV 91.2 FL (83-99); PLATELET COUNT 207 K/uL (156-360); RBC DIS.WIDTH-CV 15.7 % (11.8-14.6); RBC DIS.WIDTH-SD 52.9 % (39-53); RED BLOOD COUNT 3.76 M/uL (3.80-5.20); WHITE BLOOD COUNT 14.9 K/uL (4.1-10.2)
[2017-08-20 03:30] LABS: CHLORIDE 106 MEQ/L (99-109); CREATININE 0.7 MG/DL (0.6-1.3); GFR ESTIMATE (CALCULATED) > 59 mL/min/; GLUCOSE 126 mg/dL (70-99); POTASSIUM 3.9 MEQ/L (3.7-5.4); SODIUM 140 MEQ/L (136-147); UREA NITROGEN (BUN) 22 mg/dL (9-23)
[2017-08-20 03:33] LABS: TROP-I INTERPRETATION NEGATIVE; TROPONIN-I < 0.01 ng/mL (0.0-0.30)
[2017-08-20 04:49] VITALS: BP 141/83
[2017-08-20] MEDS ORDERED: CLARITIN,ALAVAR10 MG PO (10:52)
[2017-08-20] MEDS ORDERED: SPIRIVA1 INHALATI IH (10:52)
[2017-08-20] MEDS ORDERED: FEOSOL325 MG PO (10:52)
[2017-08-20] MEDS ORDERED: PREDNISONE10 MG PO (10:52)
[2017-08-20] MEDS ORDERED: ADVAIR HFA120 INHALA IH (10:52)
[2017-08-20] MEDS ORDERED: ALBUTEROL2.5 MG/3 M IH (10:53)
[2017-08-20] MEDS ORDERED: PROAIR HFA8.5 GM IH (10:53)
[2017-08-20 11:39] VITALS: BP 148/91
== END 2017-08-20 15:26 | disposition home or self-care (01) ==
LOC: EME 12:32 → 5WEST 15:56 → EDOF 15:56 → ENRESERV 16:00 → 5WEST 17:20
PROVIDERS: Internal Medicine; Physician Assistant
DX: J96.01 Acute respiratory failure with hypoxia (principal); D86.9 Sarcoidosis, unspecified; J44.1 Chronic obstructive pulmonary disease with (acute) exacerbation; Z99.81 Dependence on supplemental oxygen; I10 Essential (primary) hypertension; F11.20 Opioid dependence, uncomplicated; F17.200 Nicotine dependence, unspecified, uncomplicated; Z91.14 Patient's other noncompliance with medication regimen
CPT/HCPCS: 80048; 80053; 80306 90; 81003; 83605; 84145 90; 84484; 84702; 85027; 85379; 87040; 93005; 94640; 94640 76; 94799; 99202; G0378; J0574; J7512; J7644

== ENCOUNTER 2017-08-31 02:12 | Inpatient (IN) | payer OTHER ==
[~2017-08-31] VITALS: Ht 172.7 cm; Wt 110.2 kg
[~2017-08-31 02:12] MED LIST changes: +SUBOXONE 12 MG1 EACH SL
[2017-08-31 03:16] LABS: HEMATOCRIT 35.5 % (36.0-46.0); MCH 29.4 PG (29.0-34.0); MCV 94.9 FL (83-99); PLATELET COUNT 234 K/uL (156-360); RBC DIS.WIDTH-CV 16.9 % (11.8-14.6); RBC DIS.WIDTH-SD 58.4 % (39-53); RED BLOOD COUNT 3.74 M/uL (3.80-5.20); WHITE BLOOD COUNT 13.8 K/uL (4.1-10.2)
[2017-08-31 03:29] LABS: CHLORIDE 105 mEq/L (99-109); POTASSIUM 3.9 mEq/L (3.7-5.4)
[2017-08-31 03:30] LABS: SODIUM 144 mEq/L (136-147)
[2017-08-31 03:31] LABS: GLUCOSE 115 mg/dL (70-99)
[2017-08-31 03:35] LABS: CREATININE 0.9 mg/dL (0.6-1.3); GFR ESTIMATE (CALCULATED) > 59 mL/min/
[2017-08-31 03:36] LABS: UREA NITROGEN (BUN) 28 mg/dL (9-23)
[2017-08-31 03:41] LABS: TROP-I INTERPRETATION NEGATIVE; TROPONIN-I 0.01 ng/mL (0.0-0.30)
[2017-08-31 03:43] LABS: QUANTITATIVE HCG < 4.0 MIU/ML
[2017-08-31 06:25] VITALS: BP 126/83
[2017-08-31 12:13] VITALS: BP 155/94
[2017-08-31 16:08] VITALS: BP 140/82
[2017-08-31 20:42] VITALS: BP 157/84
[2017-09-01] VITALS (7 sets, daily range): BP systolic 36–170; BP diastolic 77–88
[2017-09-01 06:18] LABS: BASOPHIL (%) 0.1 % (0-1); EOSINOPHIL (%) 0 % (0-5); HEMATOCRIT 35.3 % (36.0-46.0); IMMATURE GRANULOCYTE (%) 1.1 % (0.0-0.7); LYMPHOCYTE (%) 4.9 % (15-42); LYMPHOCYTE COUNT 0.7 K/uL (1.0-2.8); MCH 29.6 PG (29.0-34.0); MCHC 31.2 G/DL (30.0-36.0); MCV 95.1 FL (83-99); MONOCYTE (%) 1.8 % (3-12); MONOCYTE COUNT 0.3 K/uL (0-0.8); NEUTROPHIL (%) 92.1 % (45-76); NEUTROPHIL COUNT 13.2 K/uL (1.8-6.4); PLATELET COUNT 233 K/uL (156-360); RBC DIS.WIDTH-CV 16.4 % (11.8-14.6); RBC DIS.WIDTH-SD 57.2 % (39-53); RED BLOOD COUNT 3.71 M/uL (3.80-5.20); WHITE BLOOD COUNT 14.4 K/uL (4.1-10.2)
[2017-09-01 06:47] LABS: CHLORIDE 104 MEQ/L (99-109); CREATININE 0.5 MG/DL (0.6-1.3); GFR ESTIMATE (CALCULATED) > 59 mL/min/; GLUCOSE 117 mg/dL (70-99); SODIUM 141 MEQ/L (136-147); UREA NITROGEN (BUN) 19 mg/dL (9-23)
[2017-09-01 06:51] LABS: POTASSIUM 4.9 MEQ/L (3.7-5.4)
[2017-09-01 07:09] LABS: ALBUMIN 3.2 G/DL (3.2-4.8); ALKALINE PHOSPHATASE 58 IU/L (3-129); ALT (GPT) 23 IU/L (3-49); AST (GOT) 15 IU/L (2-34); CHLORIDE 104 MEQ/L (99-109); CREATININE 0.6 MG/DL (0.6-1.3); GFR ESTIMATE (CALCULATED) > 59 mL/min/; GLUCOSE 115 mg/dL (70-99); POTASSIUM 4.9 MEQ/L (3.7-5.4); SODIUM 140 MEQ/L (136-147); TOTAL BILIRUBIN 0.4 MG/DL (0.0-1.0); TOTAL PROTEIN 5.7 G/DL (6.4-8.3); UREA NITROGEN (BUN) 19 mg/dL (9-23)
[2017-09-02 07:00] LABS: HEMOGLOBIN 11.2 G/DL (11.9-15.5); RED BLOOD COUNT 3.97 M/uL (3.80-5.20); WHITE BLOOD COUNT 18.4 K/uL (4.1-10.2)
[2017-09-02 07:01] LABS: BASOPHIL (%) 0.2 % (0-1); EOSINOPHIL (%) 0 % (0-5); HEMATOCRIT 37.5 % (36.0-46.0); IMMATURE GRANULOCYTE (%) 1.1 % (0.0-0.7); LYMPHOCYTE (%) 3.4 % (15-42); LYMPHOCYTE COUNT 0.6 K/uL (1.0-2.8); MCH 28.2 PG (29.0-34.0); MCHC 29.9 G/DL (30.0-36.0); MCV 94.5 FL (83-99); MONOCYTE (%) 4.1 % (3-12); MONOCYTE COUNT 0.8 K/uL (0-0.8); NEUTROPHIL (%) 91.2 % (45-76); NEUTROPHIL COUNT 16.8 K/uL (1.8-6.4); PLATELET COUNT 273 K/uL (156-360); RBC DIS.WIDTH-CV 16.6 % (11.8-14.6); RBC DIS.WIDTH-SD 57.7 % (39-53)
[2017-09-02 07:36] VITALS: BP 127/79
[2017-09-02 07:41] LABS: CHLORIDE 103 MEQ/L (99-109); CREATININE 0.8 MG/DL (0.6-1.3); GFR ESTIMATE (CALCULATED) > 59 mL/min/; GLUCOSE 127 mg/dL (70-99); POTASSIUM 4.4 MEQ/L (3.7-5.4); SODIUM 141 MEQ/L (136-147)
[2017-09-02 07:44] LABS: UREA NITROGEN (BUN) 29 mg/dL (9-23)
[2017-09-02 08:37] LABS: BASE EXCESS 6.3 mEq/L (-3 to +3); BICARBONATE 32.7 mEq/L (22-26); CARBOXY HGB 2.4 % (0-5); COMMENTS - BLOOD GASES A+C+; DEVICE NC; METHEMOGLOBIN 1.5 % (0-1.5); O2 FLOW 2 L/MIN; PCO2 54 mm Hg (35-45); PO2 71 mm Hg (80-100); SITE RR; TOTAL RESP RATE 24 resp/min; pH 7.39 (7.35-7.45)
[2017-09-02 15:36] VITALS: BP 140/59
[2017-09-02 20:24] VITALS: BP 139/78
[2017-09-03 00:05] VITALS: BP 146/88
[2017-09-03 04:15] VITALS: BP 121/68
[2017-09-03 06:57] LABS: CHLORIDE 104 MEQ/L (99-109); CREATININE 0.8 MG/DL (0.6-1.3); GFR ESTIMATE (CALCULATED) > 59 mL/min/; GLUCOSE 101 mg/dL (70-99); POTASSIUM 4.5 MEQ/L (3.7-5.4); SODIUM 140 MEQ/L (136-147); UREA NITROGEN (BUN) 32 mg/dL (9-23)
[2017-09-03 07:06] LABS: HEMATOCRIT 37.6 % (36.0-46.0); HEMOGLOBIN 11.6 G/DL (11.9-15.5); MCH 29.4 PG (29.0-34.0); MCHC 30.9 G/DL (30.0-36.0); MCV 95.4 FL (83-99); NRBC (%) 0.1 /100 WBC (0-0); RBC DIS.WIDTH-CV 17.1 % (11.8-14.6); RBC DIS.WIDTH-SD 59.1 % (39-53); RED BLOOD COUNT 3.94 M/uL (3.80-5.20); WHITE BLOOD COUNT 15.6 K/uL (4.1-10.2)
[2017-09-03 07:15] VITALS: BP 152/89
[2017-09-03 07:32] LABS: PLAT.SUFFICIENCY ADEQUATE; PLATELET COUNT 256 K/uL (156-360)
[2017-09-03] MEDS ORDERED: DUONEB 2.5-0.5 M3 ML AEROSOL (09:46)
[2017-09-03] MEDS ORDERED: THEOPHYLLINE400 MG PO (09:46)
[2017-09-03] MEDS ORDERED: PROAIR HFA8.5 GM IH (09:46)
[2017-09-03] MEDS ORDERED: MONTELUKAST SOD10 MG PO (09:46)
[2017-09-03] MEDS ORDERED: LEVOFLOXACIN500 MG PO (09:46)
[2017-09-03] MEDS ORDERED: FLUCONAZOLE200 MG PO (09:46)
[2017-09-03] MEDS ORDERED: PREDNISONE10 MG PO (09:46)
[2017-09-03] MEDS ORDERED: PRINIVIL10 MG PO (09:46)
== END 2017-09-03 10:24 | disposition home or self-care (01) | DRG 190 ==
LOC: EME → EDBD 02:12 → EME 02:12 → ENRESERV 04:24 → 2EASTP 04:26 → EDOF 04:26 → ENRESERV 04:58 → 2EASTP 06:08
PROVIDERS: Emergency Medicine; Hospitalist; Internal Medicine; Internal Medicine Pulmonary Disease
DX: J44.1 Chronic obstructive pulmonary disease with (acute) exacerbation (principal); J96.21 Acute and chronic respiratory failure with hypoxia; J45.51 Severe persistent asthma with (acute) exacerbation; D63.8 Anemia in other chronic diseases classified elsewhere; J44.0 Chronic obstructive pulmonary disease with (acute) lower respiratory infection; J20.9 Acute bronchitis, unspecified; D86.9 Sarcoidosis, unspecified; Z99.81 Dependence on supplemental oxygen; F17.210 Nicotine dependence, cigarettes, uncomplicated; F11.11 Opioid abuse, in remission; F41.9 Anxiety disorder, unspecified; I10 Essential (primary) hypertension; G89.29 Other chronic pain; T38.0X5A Adverse effect of glucocorticoids and synthetic analogues, initial encounter; E66.9 Obesity, unspecified; Z68.36 Body mass index [BMI] 36.0-36.9, adult; Z91.19 Patient's noncompliance with other medical treatment and regimen; Z87.442 Personal history of urinary calculi; Z82.5 Family history of asthma and other chronic lower respiratory diseases; Z82.49 Family history of ischemic heart disease and other diseases of the circulatory system; Z80.1 Family history of malignant neoplasm of trachea, bronchus and lung; Z79.899 Other long term (current) drug therapy; Z79.52 Long term (current) use of systemic steroids
CPT/HCPCS: 36600; 71045; 80048; 80053; 82803; 83735; 84484; 84702; 85025; 85027; 87070; 87205; 93005; 94640; 94640 76; 94799; 99202; 99281; 99285; G0378; J0574; J1650; J1956; J2920; J2930; J7512; J7644

== ENCOUNTER 2017-09-10 00:07 | Emergency (ER) | payer OTHER ==
[~2017-09-10] VITALS: Ht 172.7 cm; Wt 112.6 kg
[~2017-09-10 00:07] MED LIST changes: +FLUCONAZOLE200 MG PO; +LEVOFLOXACIN500 MG PO; +THEOPHYLLINE400 MG PO
[2017-09-10] MEDS ORDERED: DUONEB 2.5-0.5 M3 ML AEROSOL (00:31)
[2017-09-10] MEDS ORDERED: PROVENTIL HFA6.7 GM IH (00:31)
[2017-09-10] MEDS ORDERED: ADVAIR 250/501 DISK IH (00:31)
[2017-09-10] MEDS ORDERED: NICODERM CQ1 EAC2 TD (00:31)
[2017-09-10 00:43] LABS: HEMATOCRIT 37.5 % (36.0-46.0); MCV 93.8 FL (83-99); RBC DIS.WIDTH-CV 16.6 % (11.8-14.6); RBC DIS.WIDTH-SD 57.9 % (39-53); WHITE BLOOD COUNT 7.4 K/uL (4.1-10.2)
[2017-09-10 00:51] LABS: CHLORIDE 102 mEq/L (99-109); POTASSIUM 4.4 mEq/L (3.7-5.4); SODIUM 141 mEq/L (136-147)
[2017-09-10 00:53] LABS: GLUCOSE 115 mg/dL (70-99)
[2017-09-10 00:56] LABS: CREATININE 0.8 mg/dL (0.6-1.3); GFR ESTIMATE (CALCULATED) > 59 mL/min/
[2017-09-10 00:57] LABS: UREA NITROGEN (BUN) 18 mg/dL (9-23)
[2017-09-10 01:30] LABS: PLAT.SUFFICIENCY ADEQUATE; PLATELET COUNT 167 K/uL (156-360)
[2017-09-10 02:02] VITALS: BP 122/86
[2017-09-11] MEDS ORDERED: ALBUTEROL2.5 MG/3 M IH (20:41)
== END 2017-09-10 02:05 | disposition home or self-care (01) ==
LOC: EME → EDBD 00:07 → EME 02:05
DX: J45.901 Unspecified asthma with (acute) exacerbation (principal); D86.9 Sarcoidosis, unspecified; I10 Essential (primary) hypertension; F41.9 Anxiety disorder, unspecified; F17.200 Nicotine dependence, unspecified, uncomplicated; Z87.442 Personal history of urinary calculi; Z88.5 Allergy status to narcotic agent; Z88.6 Allergy status to analgesic agent
CPT/HCPCS: 80048; 85027; 99281; 99284; J7644

== ENCOUNTER 2017-09-11 19:37 | Emergency (ER) | payer OTHER ==
[~2017-09-11] VITALS: Ht 172.7 cm; Wt 114.1 kg
[~2017-09-11 19:37] MED LIST changes: +NICODERM CQ1 EAC2 TD
[2017-09-11] MEDS ORDERED: ALBUTEROL2.5 MG/3 M IH (20:41)
[2017-09-11 21:36] VITALS: BP 101/54
== END 2017-09-11 22:17 | disposition home or self-care (01) ==
LOC: EME → EDBD 19:37 → EME 19:37
DX: J45.901 Unspecified asthma with (acute) exacerbation (principal); Z91.14 Patient's other noncompliance with medication regimen; J44.9 Chronic obstructive pulmonary disease, unspecified; F17.200 Nicotine dependence, unspecified, uncomplicated
CPT/HCPCS: 71046; 94640; 94644; 99281; 99284; J7512; J7644

== ENCOUNTER 2017-09-14 11:50 | Inpatient (IN) | payer OTHER ==
[~2017-09-14] VITALS: Ht 172.7 cm; Wt 113.6 kg
[2017-09-14 13:14] LABS: BASOPHIL (%) 0.6 % (0-1); EOSINOPHIL (%) 3.9 % (0-5); EOSINOPHIL COUNT 0.3 K/uL (0-0.3); HEMATOCRIT 36.7 % (36.0-46.0); HEMOGLOBIN 11.4 G/DL (11.9-15.5); IMMATURE GRANULOCYTE (%) 0.3 % (0.0-0.7); LYMPHOCYTE (%) 17.5 % (15-42); LYMPHOCYTE COUNT 1.2 K/uL (1.0-2.8); MCH 30.1 PG (29.0-34.0); MCHC 31.1 G/DL (30.0-36.0); MCV 96.8 FL (83-99); MONOCYTE (%) 12.3 % (3-12); MONOCYTE COUNT 0.9 K/uL (0-0.8); NEUTROPHIL (%) 65.4 % (45-76); NEUTROPHIL COUNT 4.6 K/uL (1.8-6.4); PLATELET COUNT 161 K/uL (156-360); RBC DIS.WIDTH-CV 16.5 % (11.8-14.6); RBC DIS.WIDTH-SD 58.5 % (39-53); RED BLOOD COUNT 3.79 M/uL (3.80-5.20); WHITE BLOOD COUNT 7.1 K/uL (4.1-10.2)
[2017-09-14 13:22] LABS: ALBUMIN 3.5 g/dL (3.2-4.8)
[2017-09-14 13:23] LABS: CHLORIDE 106 mEq/L (99-109); POTASSIUM 4.1 mEq/L (3.7-5.4); SODIUM 143 mEq/L (136-147)
[2017-09-14 13:25] LABS: GLUCOSE 104 mg/dL (70-99)
[2017-09-14 13:27] LABS: TOTAL BILIRUBIN 1.1 mg/dL (0.0-1.0)
[2017-09-14 13:28] LABS: ALKALINE PHOSPHATASE 87 IU/L (3-129)
[2017-09-14 13:29] LABS: CREATININE 0.8 mg/dL (0.6-1.3); GFR ESTIMATE (CALCULATED) > 59 mL/min/
[2017-09-14 13:30] LABS: AST (GOT) 20 IU/L (2-34); UREA NITROGEN (BUN) 15 mg/dL (9-23)
[2017-09-14 13:32] LABS: ALT (GPT) 23 IU/L (3-49)
[2017-09-14 13:35] LABS: TROP-I INTERPRETATION NEGATIVE; TROPONIN-I < 0.01 ng/mL (0.0-0.30)
[2017-09-14] MEDS ORDERED: SPIRIVA1 INHALATI IH (16:24)
[2017-09-14 18:34] VITALS: BP 144/81
[2017-09-15 00:24] VITALS: BP 116/59
[2017-09-15 04:12] VITALS: BP 140/74
[2017-09-15 06:43] LABS: HEMATOCRIT 35.5 % (36.0-46.0); MCH 29.3 PG (29.0-34.0); MCV 94.7 FL (83-99); PLATELET COUNT 172 K/uL (156-360); RBC DIS.WIDTH-CV 15.9 % (11.8-14.6); RBC DIS.WIDTH-SD 55.8 % (39-53); RED BLOOD COUNT 3.75 M/uL (3.80-5.20); WHITE BLOOD COUNT 6.7 K/uL (4.1-10.2)
[2017-09-15 07:01] LABS: CHLORIDE 104 MEQ/L (99-109); POTASSIUM 4.5 MEQ/L (3.7-5.4); SODIUM 140 MEQ/L (136-147)
[2017-09-15 07:19] LABS: CREATININE 0.7 MG/DL (0.6-1.3); GFR ESTIMATE (CALCULATED) > 59 mL/min/; UREA NITROGEN (BUN) 18 mg/dL (9-23)
[2017-09-15 07:20] LABS: GLUCOSE 222 mg/dL (70-99)
[2017-09-15 08:28] VITALS: BP 162/87
[2017-09-15 19:19] VITALS: BP 150/89
[2017-09-15 23:43] VITALS: BP 101/78
[2017-09-16 01:10] VITALS: BP 110/78; BP 194/97
[2017-09-16 04:12] VITALS: BP 138/73
[2017-09-16 08:19] VITALS: BP 140/77
[2017-09-16] MEDS ORDERED: CEFTIN250 MG PO (09:30)
[2017-09-16] MEDS ORDERED: PREDNISONE5 M1 PO (09:31)
[2017-09-16] MEDS ORDERED: ALBUTEROL2.5 MG/3 M IH (11:30)
== END 2017-09-16 10:18 | disposition home or self-care (01) | DRG 189 ==
LOC: EME 11:50 → 5SOUTH 16:05 → EDOF 16:05 → ENRESERV 16:07 → 5SOUTH 18:13
PROVIDERS: Emergency Medicine; Internal Medicine
DX: J96.21 Acute and chronic respiratory failure with hypoxia (principal); J44.1 Chronic obstructive pulmonary disease with (acute) exacerbation; J45.901 Unspecified asthma with (acute) exacerbation; J44.0 Chronic obstructive pulmonary disease with (acute) lower respiratory infection; F17.210 Nicotine dependence, cigarettes, uncomplicated; D86.9 Sarcoidosis, unspecified; I10 Essential (primary) hypertension; Z79.899 Other long term (current) drug therapy; I27.81 Cor pulmonale (chronic); I27.29 Other secondary pulmonary hypertension; G89.4 Chronic pain syndrome; Z99.81 Dependence on supplemental oxygen; Z91.19 Patient's noncompliance with other medical treatment and regimen; Z87.442 Personal history of urinary calculi; J20.9 Acute bronchitis, unspecified
CPT/HCPCS: 71046; 80048; 80053; 83880; 84484; 85025; 85027; 87070; 87205; 87449; 87502; 87641; 93005; 93970; 94640; 94640 76; 94644; 94760; 94799; 99202; 99281; 99284; 99285; J0574; J0696; J1100; J1650; J2920; J2930; J7512; J7644; S0028

== ENCOUNTER 2017-09-20 04:58 | Emergency (ER) | payer OTHER ==
[~2017-09-20] VITALS: Ht 172.7 cm; Wt 117.1 kg
[~2017-09-20 04:58] MED LIST changes: +CEFTIN250 MG PO; +PREDNISONE5 M1 PO
[2017-09-20] MEDS ORDERED: ALBUTEROL2.5 MG/3 M IH (06:50)
[2017-09-20 07:00] VITALS: BP 147/89
== END 2017-09-20 09:26 | disposition home or self-care (01) ==
LOC: EME → EDBD 04:58 → EME 04:58
DX: J44.1 Chronic obstructive pulmonary disease with (acute) exacerbation (principal); I10 Essential (primary) hypertension; D86.9 Sarcoidosis, unspecified; F41.9 Anxiety disorder, unspecified; F17.200 Nicotine dependence, unspecified, uncomplicated; Z99.81 Dependence on supplemental oxygen; Z79.51 Long term (current) use of inhaled steroids; Z87.442 Personal history of urinary calculi; Z88.5 Allergy status to narcotic agent; Z88.6 Allergy status to analgesic agent
CPT/HCPCS: 93005; 94640; 99281; 99285; J7512; J7644

== ENCOUNTER 2017-09-29 18:07 | Emergency (ER) | payer OTHER ==
[~2017-09-29] VITALS: Ht 172.7 cm; Wt 104.5 kg
[2017-09-29 18:56] LABS: HEMATOCRIT 37.4 % (36.0-46.0); HEMOGLOBIN 11.7 G/DL (11.9-15.5); MCH 30.1 PG (29.0-34.0); MCHC 31.3 G/DL (30.0-36.0); MCV 96.1 FL (83-99); PLATELET COUNT 222 K/uL (156-360); RBC DIS.WIDTH-SD 52.9 % (39-53); RED BLOOD COUNT 3.89 M/uL (3.80-5.20)
[2017-09-29 19:07] LABS: CHLORIDE 101 mEq/L (99-109); POTASSIUM 4.6 mEq/L (3.7-5.4); SODIUM 145 mEq/L (136-147)
[2017-09-29 19:08] LABS: GLUCOSE 92 mg/dL (70-99)
[2017-09-29 19:12] LABS: CREATININE 0.8 mg/dL (0.6-1.3); GFR ESTIMATE (CALCULATED) > 59 mL/min/
[2017-09-29 19:13] LABS: UREA NITROGEN (BUN) 11 mg/dL (9-23)
[2017-09-29] MEDS ORDERED: PREDNISONE50 MG PO (20:20)
[2017-09-29] MEDS ORDERED: XANAX0.25 MG PO (20:50)
[2017-09-29 21:06] VITALS: BP 131/84
== END 2017-09-29 21:10 | disposition home or self-care (01) ==
LOC: EME 18:07
PROVIDERS: Emergency Medicine
DX: J44.1 Chronic obstructive pulmonary disease with (acute) exacerbation (principal); R60.0 Localized edema; I10 Essential (primary) hypertension; D86.9 Sarcoidosis, unspecified; F41.9 Anxiety disorder, unspecified; Z99.81 Dependence on supplemental oxygen; Z79.51 Long term (current) use of inhaled steroids; Z87.891 Personal history of nicotine dependence; Z87.442 Personal history of urinary calculi; Z88.5 Allergy status to narcotic agent; Z88.6 Allergy status to analgesic agent
CPT/HCPCS: 71046; 80048; 85027; 94640; 99281; 99285; J1940; J7512; J7644

== ENCOUNTER 2017-10-02 03:25 | Inpatient (IN) | payer OTHER ==
[~2017-10-02] VITALS: Ht 172.7 cm; Wt 111.0 kg
[2017-10-02 05:00] LABS: HEMATOCRIT 41.1 % (36.0-46.0); HEMOGLOBIN 12.9 G/DL (11.9-15.5); MCH 30.2 PG (29.0-34.0); MCHC 31.4 G/DL (30.0-36.0); MCV 96.3 FL (83-99); RED BLOOD COUNT 4.27 M/uL (3.80-5.20); WHITE BLOOD COUNT 7.8 K/uL (4.1-10.2)
[2017-10-02 05:09] LABS: CARBON DIOXIDE (BICARBONATE) 39.9 MEQ/L (20-31)
[2017-10-02 05:10] LABS: ALBUMIN 3.8 g/dL (3.2-4.8); CHLORIDE 103 mEq/L (99-109); SODIUM 145 mEq/L (136-147)
[2017-10-02 05:12] LABS: GLUCOSE 81 mg/dL (70-99); TOTAL PROTEIN 6.7 g/dL (6.4-8.3)
[2017-10-02 05:14] LABS: TOTAL BILIRUBIN 0.6 mg/dL (0.0-1.0)
[2017-10-02 05:16] LABS: ALKALINE PHOSPHATASE 77 IU/L (3-129); CREATININE 0.7 mg/dL (0.6-1.3); GFR ESTIMATE (CALCULATED) > 59 mL/min/
[2017-10-02 05:17] LABS: UREA NITROGEN (BUN) 12 mg/dL (9-23)
[2017-10-02 05:18] LABS: AST (GOT) 28 IU/L (2-34)
[2017-10-02 05:19] LABS: ALT (GPT) 25 IU/L (3-49)
[2017-10-02 05:22] LABS: TROP-I INTERPRETATION NEGATIVE; TROPONIN-I < 0.01 ng/mL (0.0-0.30)
[2017-10-02 05:44] LABS: BASE EXCESS 9.4 mEq/L (-3 to +3); BICARBONATE 36.3 mEq/L (22-26); CARBOXY HGB 2.4 % (0-5); METHEMOGLOBIN 1.1 % (0-1.5); PO2 58 mm Hg (80-100); pH 7.39 (7.35-7.45)
[2017-10-02 05:45] LABS: COMMENTS - BLOOD GASES C+A+; DEVICE NC; O2 FLOW 3 L/MIN; PCO2 60 mm Hg (35-45); SITE RR; TOTAL RESP RATE 19 resp/min
[2017-10-02 06:23] LABS: PLAT.SUFFICIENCY ADEQUATE; PLATELET COUNT 207 K/uL (156-360)
[2017-10-02] MEDS ORDERED: ZESTRIL10 MG PO (07:36)
[2017-10-02 08:02] LABS: THEOPHYLLINE < 2.5 MCG/ML (10-20)
[2017-10-02 08:09] VITALS: BP 113/63
[2017-10-02 11:35] VITALS: BP 137/95
[2017-10-02 15:36] VITALS: BP 124/72
[2017-10-02 20:36] VITALS: BP 150/64
[2017-10-02 23:48] VITALS: BP 141/86
[2017-10-03 04:21] VITALS: BP 136/76
[2017-10-03 05:51] LABS: CHLORIDE 105 MEQ/L (99-109); CREATININE 0.6 MG/DL (0.6-1.3); GFR ESTIMATE (CALCULATED) > 59 mL/min/; UREA NITROGEN (BUN) 16 mg/dL (9-23)
[2017-10-03 05:52] LABS: GLUCOSE 143 mg/dL (70-99); POTASSIUM 5.5 MEQ/L (3.7-5.4); SODIUM 136 MEQ/L (136-147)
[2017-10-03 06:13] LABS: HEMATOCRIT 38.1 % (36.0-46.0); MCH 29.8 PG (29.0-34.0); MCHC 31.5 G/DL (30.0-36.0); MCV 94.5 FL (83-99); PLAT.SUFFICIENCY DECREASED; RBC DIS.WIDTH-CV 14.6 % (11.8-14.6); RBC DIS.WIDTH-SD 50.4 % (39-53); RED BLOOD COUNT 4.03 M/uL (3.80-5.20); WHITE BLOOD COUNT 9.7 K/uL (4.1-10.2)
[2017-10-03 06:21] LABS: PLATELET COUNT 144 K/uL (156-360)
[2017-10-03 08:30] VITALS: BP 130/75
[2017-10-03 11:30] VITALS: BP 122/69
[2017-10-03 15:04] VITALS: BP 139/78
[2017-10-03 19:45] VITALS: BP 133/83
[2017-10-03 23:36] VITALS: BP 126/76
[2017-10-04 04:00] VITALS: BP 130/78
[2017-10-04 07:00] VITALS: BP 140/96
[2017-10-04 10:53] VITALS: BP 124/63
[2017-10-04 15:11] VITALS: BP 130/80
[2017-10-04 20:00] VITALS: BP 137/85
[2017-10-04 23:14] VITALS: BP 139/79
[2017-10-05 03:45] VITALS: BP 115/62
[2017-10-05] MEDS ORDERED: AZITHROMYCIN500 M1 PO (11:08)
[2017-10-05] MEDS ORDERED: BUSPAR5 MG PO (11:08)
[2017-10-05] MEDS ORDERED: MUCINEX600 MG PO (11:08)
[2017-10-05] MEDS ORDERED: PREDNISONE10 MG PO (11:11)
== END 2017-10-05 13:54 | disposition home or self-care (01) | DRG 189 ==
LOC: EME 03:25 → EDOF 06:16 → 4SOUTH 06:16 → ENRESERV 06:17 → 4SOUTH 07:57 → ENPENDDIS 10-05 12:19 → 4SOUTH 10-05 13:54
PROVIDERS: Emergency Medicine; Physician Assistant
DX: J96.21 Acute and chronic respiratory failure with hypoxia (principal); J45.901 Unspecified asthma with (acute) exacerbation; Z99.81 Dependence on supplemental oxygen; Z91.19 Patient's noncompliance with other medical treatment and regimen; I27.20 Pulmonary hypertension, unspecified; G47.33 Obstructive sleep apnea (adult) (pediatric); F41.9 Anxiety disorder, unspecified; E66.9 Obesity, unspecified; Z68.37 Body mass index [BMI] 37.0-37.9, adult; D86.9 Sarcoidosis, unspecified; B95.62 Methicillin resistant Staphylococcus aureus infection as the cause of diseases classified elsewhere; I10 Essential (primary) hypertension; F32.9 Major depressive disorder, single episode, unspecified
CPT/HCPCS: 36600; 71045; 80048; 80053; 80198; 82803; 84484; 85027; 87070; 87077; 87147; 87186; 87205; 93005; 94640; 94640 76; 94644; 94760; 94799; 99202; 99281; 99285; G0378; J0574; J1100; J1650; J1956; J2930; J3475; J7512; J7644

== ENCOUNTER 2017-10-09 22:26 | Observation (INO) | payer OTHER ==
[~2017-10-09] VITALS: Ht 172.7 cm; Wt 114.9 kg
[~2017-10-09 22:26] MED LIST changes: +BUSPAR5 MG PO; +MUCINEX600 MG PO; +ZESTRIL10 MG PO
[2017-10-09 22:55] LABS: HEMATOCRIT 38.9 % (36.0-46.0); HEMOGLOBIN 12.5 G/DL (11.9-15.5); MCH 30.4 PG (29.0-34.0); MCHC 32.1 G/DL (30.0-36.0); MCV 94.6 FL (83-99); RBC DIS.WIDTH-CV 14.6 % (11.8-14.6); RBC DIS.WIDTH-SD 51.2 % (39-53); RED BLOOD COUNT 4.11 M/uL (3.80-5.20); WHITE BLOOD COUNT 11.9 K/uL (4.1-10.2)
[2017-10-09 23:01] LABS: INTER. NORMALIZED RATIO 1.1
[2017-10-09 23:04] LABS: ALBUMIN 3.7 g/dL (3.2-4.8); CHLORIDE 104 mEq/L (99-109); POTASSIUM 4.7 mEq/L (3.7-5.4); PTT 34.6 SEC (25-37); SODIUM 141 mEq/L (136-147)
[2017-10-09 23:07] LABS: GLUCOSE 102 mg/dL (70-99); TOTAL PROTEIN 6.6 g/dL (6.4-8.3)
[2017-10-09 23:09] LABS: TOTAL BILIRUBIN 1.4 mg/dL (0.0-1.0)
[2017-10-09 23:10] LABS: ALKALINE PHOSPHATASE 84 IU/L (3-129); CREATININE 0.8 mg/dL (0.6-1.3); GFR ESTIMATE (CALCULATED) > 59 mL/min/
[2017-10-09 23:11] LABS: UREA NITROGEN (BUN) 21 mg/dL (9-23)
[2017-10-09 23:12] LABS: AST (GOT) 18 IU/L (2-34)
[2017-10-09 23:13] LABS: ALT (GPT) 17 IU/L (3-49)
[2017-10-09 23:14] LABS: LIPASE 5 U/L (1.0-51.0)
[2017-10-10 00:52] LABS: PLATELET COUNT 198 K/uL (156-360)
[2017-10-10 04:15] VITALS: BP 109/67
[2017-10-10 06:11] LABS: BASOPHIL (%) 0.5 % (0-1); EOSINOPHIL (%) 3.2 % (0-5); EOSINOPHIL COUNT 0.3 K/uL (0-0.3); HEMATOCRIT 37.4 % (36.0-46.0); HEMOGLOBIN 11.7 G/DL (11.9-15.5); IMMATURE GRANULOCYTE (%) 0.4 % (0.0-0.7); LYMPHOCYTE (%) 16.1 % (15-42); LYMPHOCYTE COUNT 1.3 K/uL (1.0-2.8); MCH 29.6 PG (29.0-34.0); MCHC 31.3 G/DL (30.0-36.0); MCV 94.7 FL (83-99); MONOCYTE (%) 14.8 % (3-12); MONOCYTE COUNT 1.2 K/uL (0-0.8); NEUTROPHIL COUNT 5.1 K/uL (1.8-6.4); PLATELET COUNT 200 K/uL (156-360); RBC DIS.WIDTH-CV 14.6 % (11.8-14.6); RBC DIS.WIDTH-SD 51.5 % (39-53); RED BLOOD COUNT 3.95 M/uL (3.80-5.20); WHITE BLOOD COUNT 7.8 K/uL (4.1-10.2)
[2017-10-10 06:30] LABS: CHLORIDE 105 MEQ/L (99-109); CREATININE 0.8 MG/DL (0.6-1.3); GFR ESTIMATE (CALCULATED) > 59 mL/min/; GLUCOSE 122 mg/dL (70-99); POTASSIUM 4.4 MEQ/L (3.7-5.4); SODIUM 144 MEQ/L (136-147); UREA NITROGEN (BUN) 22 mg/dL (9-23)
[2017-10-10 08:00] VITALS: BP 117/64
[2017-10-10 12:00] VITALS: BP 135/77
[2017-10-10 15:16] VITALS: BP 135/75
[2017-10-10 23:28] VITALS: BP 119/63
[2017-10-11 07:50] LABS: HEMATOCRIT 37.2 % (36.0-46.0); HEMOGLOBIN 11.4 G/DL (11.9-15.5); MCH 29.8 PG (29.0-34.0); MCHC 30.6 G/DL (30.0-36.0); MCV 97.1 FL (83-99); RBC DIS.WIDTH-CV 14.7 % (11.8-14.6); RBC DIS.WIDTH-SD 52.6 % (39-53); RED BLOOD COUNT 3.83 M/uL (3.80-5.20); WHITE BLOOD COUNT 4.3 K/uL (4.1-10.2)
[2017-10-11 08:10] VITALS: BP 111/53
[2017-10-11 08:35] LABS: PLAT.SUFFICIENCY ADEQUATE; PLATELET COUNT 215 K/uL (156-360)
[2017-10-11] MEDS ORDERED: BENZONATATE100 MG PO (10:46)
[2017-10-11] MEDS ORDERED: NAPROXEN500 MG PO (10:46)
[2017-10-11] MEDS ORDERED: DOXYCYCLINE HY100 MG PO (10:46)
== END 2017-10-11 11:15 | disposition home or self-care (01) ==
LOC: EME 22:26 → 3EAST 10-10 01:33 → EDOF 10-10 01:33 → ENRESERV 10-10 01:35 → 3EAST 10-10 04:24
PROVIDERS: Emergency Medicine; Hospitalist; Physician Assistant
DX: L03.115 Cellulitis of right lower limb (principal); L03.116 Cellulitis of left lower limb; Z86.14 Personal history of Methicillin resistant Staphylococcus aureus infection; M79.89 Other specified soft tissue disorders; D86.9 Sarcoidosis, unspecified; J44.9 Chronic obstructive pulmonary disease, unspecified; J96.10 Chronic respiratory failure, unspecified whether with hypoxia or hypercapnia; Z99.81 Dependence on supplemental oxygen; I10 Essential (primary) hypertension; I27.20 Pulmonary hypertension, unspecified; F11.21 Opioid dependence, in remission; D72.829 Elevated white blood cell count, unspecified; Z87.891 Personal history of nicotine dependence; Z82.49 Family history of ischemic heart disease and other diseases of the circulatory system; Z88.5 Allergy status to narcotic agent
CPT/HCPCS: 80048; 80053; 80202; 83605; 83690; 85025; 85027; 85610; 85730; 87040; 93970; 94640; 94640 76; 94760; 94799; 99202; 99281; 99285; G0378; J0690; J1650; J1885; J3370

== ENCOUNTER 2017-10-24 08:05 | Observation (INO) | payer OTHER ==
[~2017-10-24] VITALS: Ht 172.7 cm; Wt 112.6 kg
[2017-10-24 08:41] LABS: HEMOGLOBIN 12.7 G/DL (11.9-15.5); MCH 30.1 PG (29.0-34.0); MCHC 31.8 G/DL (30.0-36.0); MCV 94.8 FL (83-99); RBC DIS.WIDTH-CV 13.9 % (11.8-14.6); RBC DIS.WIDTH-SD 48.4 % (39-53); RED BLOOD COUNT 4.22 M/uL (3.80-5.20); WHITE BLOOD COUNT 3.3 K/uL (4.1-10.2)
[2017-10-24 08:58] LABS: CHLORIDE 103 mEq/L (99-109); SODIUM 141 mEq/L (136-147)
[2017-10-24 08:59] LABS: GLUCOSE 83 mg/dL (70-99)
[2017-10-24 09:03] LABS: CREATININE 0.8 mg/dL (0.6-1.3); GFR ESTIMATE (CALCULATED) > 59 mL/min/
[2017-10-24 09:04] LABS: UREA NITROGEN (BUN) 21 mg/dL (9-23)
[2017-10-24 09:07] LABS: TROP-I INTERPRETATION NEGATIVE; TROPONIN-I < 0.01 ng/mL (0.0-0.30)
[2017-10-24 09:12] LABS: PLAT.SUFFICIENCY ADEQUATE; PLATELET COUNT 181 K/uL (156-360)
[2017-10-24 09:16] LABS: QUANTITATIVE HCG < 4.0 MIU/ML
[2017-10-24] MEDS ORDERED: ALBUTEROL2.5 MG/3 M IH (10:14)
[2017-10-24] MEDS ORDERED: ALEVE220 M2 PO (10:15)
[2017-10-24] MEDS ORDERED: ADVAIR 250/501 DISK IH (10:16)
[2017-10-24 13:27] VITALS: BP 133/71
[2017-10-24 18:14] VITALS: BP 147/72
[2017-10-25 01:17] VITALS: BP 141/67
[2017-10-25 06:09] LABS: HEMATOCRIT 35.9 % (36.0-46.0); HEMOGLOBIN 11.5 G/DL (11.9-15.5); MCH 29.5 PG (29.0-34.0); MCV 92.1 FL (83-99); PLATELET COUNT 180 K/uL (156-360); RBC DIS.WIDTH-CV 13.6 % (11.8-14.6); RBC DIS.WIDTH-SD 46.3 % (39-53); WHITE BLOOD COUNT 4.5 K/uL (4.1-10.2)
[2017-10-25 06:39] LABS: CHLORIDE 109 MEQ/L (99-109); CREATININE 0.7 MG/DL (0.6-1.3); GFR ESTIMATE (CALCULATED) > 59 mL/min/; GLUCOSE 123 mg/dL (70-99); POTASSIUM 4.4 MEQ/L (3.7-5.4); SODIUM 140 MEQ/L (136-147); UREA NITROGEN (BUN) 20 mg/dL (9-23)
[2017-10-25 07:12] VITALS: BP 132/82
[2017-10-25] MEDS ORDERED: ADVAIR 250/501 DISK IH (10:45)
[2017-10-25] MEDS ORDERED: ZESTRIL10 MG PO (11:36)
[2017-10-25] MEDS ORDERED: PROVENTIL HFA6.7 GM IH (11:36)
[2017-10-25] MEDS ORDERED: PREDNISONE10 MG PO (11:36)
[2017-10-25] MEDS ORDERED: ALBUTEROL2.5 MG/3 M IH (11:36)
[2017-10-25] MEDS ORDERED: MONTELUKAST SOD10 MG PO (11:36)
[2017-10-25] MEDS ORDERED: SPIRIVA1 INHALATI IH (11:36)
[2017-10-25] MEDS ORDERED: ZITHROMAX250 MG PO (11:36)
== END 2017-10-25 14:44 | disposition home or self-care (01) ==
LOC: EME → EDBD 08:05 → 5EAST 11:02 → EDOF 11:02 → ENRESERV 11:03 → 5EAST 13:11
PROVIDERS: Nurse Practitioner Adult Health; Nurse Practitioner Family
DX: J44.1 Chronic obstructive pulmonary disease with (acute) exacerbation (principal); D86.9 Sarcoidosis, unspecified; I27.20 Pulmonary hypertension, unspecified; Z99.81 Dependence on supplemental oxygen; F17.200 Nicotine dependence, unspecified, uncomplicated; Z91.19 Patient's noncompliance with other medical treatment and regimen; F19.11 Other psychoactive substance abuse, in remission; E66.9 Obesity, unspecified; Z88.6 Allergy status to analgesic agent; Z88.5 Allergy status to narcotic agent
CPT/HCPCS: 71046; 80048; 83880; 84484; 84702; 85027; 93005; 94640; 94640 76; 94644; 94799; 99202; 99281; 99284; G0378; J0456; J1650; J2405; J2930; J7030

== ENCOUNTER 2017-11-01 06:43 | Inpatient (IN) | payer OTHER ==
[~2017-11-01] VITALS: Ht 190.5 cm; Wt 110.0 kg
[~2017-11-01 06:43] MED LIST changes: +ALEVE220 M2 PO
[2017-11-01 08:02] LABS: HEMATOCRIT 37.6 % (36.0-46.0); HEMOGLOBIN 12.4 G/DL (11.9-15.5); MCH 30.4 PG (29.0-34.0); MCV 92.2 FL (83-99); PLATELET COUNT 214 K/uL (156-360); RBC DIS.WIDTH-CV 14.3 % (11.8-14.6); RBC DIS.WIDTH-SD 47.6 % (39-53); RED BLOOD COUNT 4.08 M/uL (3.80-5.20); WHITE BLOOD COUNT 8.3 K/uL (4.1-10.2)
[2017-11-01 08:13] LABS: ALBUMIN 3.6 g/dL (3.2-4.8); CHLORIDE 100 mEq/L (99-109); POTASSIUM 3.9 mEq/L (3.7-5.4); SODIUM 138 mEq/L (136-147)
[2017-11-01 08:16] LABS: GLUCOSE 100 mg/dL (70-99); TOTAL PROTEIN 6.1 g/dL (6.4-8.3)
[2017-11-01 08:18] LABS: TOTAL BILIRUBIN 1.1 mg/dL (0.0-1.0)
[2017-11-01 08:19] LABS: ALKALINE PHOSPHATASE 94 IU/L (3-129); CREATININE 0.8 mg/dL (0.6-1.3); GFR ESTIMATE (CALCULATED) > 59 mL/min/
[2017-11-01 08:20] LABS: UREA NITROGEN (BUN) 15 mg/dL (9-23)
[2017-11-01 08:21] LABS: AST (GOT) 23 IU/L (2-34)
[2017-11-01 08:22] LABS: ALT (GPT) 14 IU/L (3-49)
[2017-11-01 08:24] LABS: TROP-I INTERPRETATION NEGATIVE; TROPONIN-I 0.01 ng/mL (0.0-0.30)
[2017-11-01] MEDS ORDERED: BUSPAR5 MG PO (13:01)
[2017-11-01] MEDS ORDERED: PERCOCET 10/1 TABLET PO (13:02)
[2017-11-01 14:00] VITALS: BP 134/66
[2017-11-01 14:25] LABS: HEMOGLOBIN A1c (GLYCOHEMOGLOB) 5.9 % (Below 5.7)
[2017-11-01 19:15] VITALS: BP 141/75
[2017-11-01 22:55] VITALS: BP 126/75
[2017-11-02 16:03] VITALS: BP 130/70
[2017-11-02 19:50] VITALS: BP 125/78
[2017-11-03 00:23] VITALS: BP 129/78
[2017-11-03 04:08] VITALS: BP 154/71
[2017-11-03 05:18] LABS: HEMATOCRIT 35.2 % (36.0-46.0); HEMOGLOBIN 11.4 G/DL (11.9-15.5); MCH 30.2 PG (29.0-34.0); MCHC 32.4 G/DL (30.0-36.0); MCV 93.1 FL (83-99); RBC DIS.WIDTH-CV 14.6 % (11.8-14.6); RBC DIS.WIDTH-SD 49.5 % (39-53); RED BLOOD COUNT 3.78 M/uL (3.80-5.20); WHITE BLOOD COUNT 15.3 K/uL (4.1-10.2)
[2017-11-03 05:48] LABS: CHLORIDE 107 MEQ/L (99-109); CREATININE 0.9 MG/DL (0.6-1.3); GFR ESTIMATE (CALCULATED) > 59 mL/min/; GLUCOSE 80 mg/dL (70-99); MAGNESIUM 1.8 mg/dl (1.3-2.7); POTASSIUM 4.2 MEQ/L (3.7-5.4); SODIUM 143 MEQ/L (136-147); UREA NITROGEN (BUN) 15 mg/dL (9-23)
[2017-11-03 05:56] LABS: PLAT.SUFFICIENCY ADEQUATE; PLATELET COUNT 189 K/uL (156-360)
[2017-11-03 08:00] VITALS: BP 138/85
[2017-11-03 11:25] VITALS: BP 138/85
[2017-11-03 15:21] VITALS: BP 145/90
[2017-11-03 19:00] VITALS: BP 158/81
[2017-11-04 00:38] VITALS: BP 132/82
[2017-11-04 07:21] VITALS: BP 173/90
[2017-11-04 08:26] LABS: HEMATOCRIT 39.2 % (36.0-46.0); HEMOGLOBIN 12.5 G/DL (11.9-15.5); MCH 29.6 PG (29.0-34.0); MCHC 31.9 G/DL (30.0-36.0); MCV 92.9 FL (83-99); RBC DIS.WIDTH-CV 14.5 % (11.8-14.6); RBC DIS.WIDTH-SD 49.1 % (39-53); RED BLOOD COUNT 4.22 M/uL (3.80-5.20); WHITE BLOOD COUNT 12.4 K/uL (4.1-10.2)
[2017-11-04 08:53] LABS: PLAT.SUFFICIENCY ADEQUATE; PLATELET COUNT 203 K/uL (156-360)
[2017-11-04 12:01] VITALS: BP 133/94
[2017-11-04] MEDS ORDERED: PREDNISONE20 MG PO (14:10)
== END 2017-11-04 15:02 | disposition home or self-care (01) | DRG 191 ==
LOC: EME → EDBD 06:43 → 4SOUTH 11:48 → EDOF 11:48 → ENRESERV 11:58 → 4SOUTH 13:49
PROVIDERS: Emergency Medicine Emergency Medical Services; Hospitalist; Internal Medicine; Physician Assistant
DX: J44.1 Chronic obstructive pulmonary disease with (acute) exacerbation (principal); J96.11 Chronic respiratory failure with hypoxia; Z99.81 Dependence on supplemental oxygen; I27.20 Pulmonary hypertension, unspecified; D86.9 Sarcoidosis, unspecified; I10 Essential (primary) hypertension; F41.9 Anxiety disorder, unspecified; G47.33 Obstructive sleep apnea (adult) (pediatric); F17.210 Nicotine dependence, cigarettes, uncomplicated
CPT/HCPCS: 71045; 80048; 80053; 83036; 83735; 83880; 84238 90; 84484; 85027; 93005; 94640; 94640 76; 94644; 94760; 94799; 99202; 99281; 99285; G0378; J1650; J2920; J2930; J3475; J7030; J7040; J7512

== ENCOUNTER 2017-11-13 | Emergency (ER) | payer OTHER ==
[~2017-11-13] VITALS: Ht 165.1 cm; Wt 95.0 kg
[2017-11-13] MEDS ORDERED: PERCOCET 5/31 TABLET PO (02:56)
[2017-11-13 04:15] VITALS: BP 155/70
== END 2017-11-13 04:16 | disposition home or self-care (01) ==
LOC: EME
DX: J44.1 Chronic obstructive pulmonary disease with (acute) exacerbation (principal); Z99.81 Dependence on supplemental oxygen; R07.89 Other chest pain
CPT/HCPCS: 94640; 99281; 99284; J1100

== ENCOUNTER 2017-11-17 12:38 | Emergency (ER) | payer OTHER ==
[~2017-11-17] VITALS: Ht 172.7 cm; Wt 120.1 kg
[2017-11-17 14:00] LABS: BASOPHIL (%) 0.8 % (0-1); BASOPHIL COUNT 0.1 K/uL (0-0.1); EOSINOPHIL (%) 3.9 % (0-5); EOSINOPHIL COUNT 0.3 K/uL (0-0.3); HEMATOCRIT 37.9 % (36.0-46.0); HEMOGLOBIN 11.9 G/DL (11.9-15.5); IMMATURE GRANULOCYTE (%) 0.3 % (0.0-0.7); LYMPHOCYTE (%) 13.3 % (15-42); MCH 30.6 PG (29.0-34.0); MCHC 31.4 G/DL (30.0-36.0); MONOCYTE (%) 6.6 % (3-12); MONOCYTE COUNT 0.5 K/uL (0-0.8); NEUTROPHIL (%) 75.1 % (45-76); NEUTROPHIL COUNT 5.8 K/uL (1.8-6.4); PLATELET COUNT 155 K/uL (156-360); RBC DIS.WIDTH-CV 14.6 % (11.8-14.6); RBC DIS.WIDTH-SD 52.6 % (39-53); RED BLOOD COUNT 3.89 M/uL (3.80-5.20); WHITE BLOOD COUNT 7.8 K/uL (4.1-10.2)
[2017-11-17 14:02] LABS: MCV 97.4 FL (83-99)
[2017-11-17 14:07] LABS: CHLORIDE 105 mEq/L (99-109); POTASSIUM 3.7 mEq/L (3.7-5.4); SODIUM 141 mEq/L (136-147)
[2017-11-17 14:08] LABS: MAGNESIUM 1.9 mg/dL (1.3-2.7)
[2017-11-17 14:09] LABS: GLUCOSE 134 mg/dL (70-99)
[2017-11-17 14:13] LABS: CREATININE 0.8 mg/dL (0.6-1.3); GFR ESTIMATE (CALCULATED) > 59 mL/min/
[2017-11-17 14:14] LABS: UREA NITROGEN (BUN) 18 mg/dL (9-23)
[2017-11-17 14:19] LABS: TROP-I INTERPRETATION NEGATIVE; TROPONIN-I < 0.01 ng/mL (0.0-0.30)
[2017-11-17 15:42] LABS: COMMENTS - BLOOD GASES C+; DEVICE NC; O2 FLOW 3 L/MIN; SITE RR; TOTAL RESP RATE 20 resp/min
[2017-11-17 15:43] LABS: BASE EXCESS 5.4 mEq/L (-3 to +3); BICARBONATE 33.2 mEq/L (22-26); CARBOXY HGB 4.3 % (0-5); METHEMOGLOBIN 1.2 % (0-1.5); PCO2 63 mm Hg (35-45); PO2 70 mm Hg (80-100); pH 7.33 (7.35-7.45)
[2017-11-17] MEDS ORDERED: LIDODERM 5% P1 PATCH TD (16:35)
[2017-11-17] MEDS ORDERED: PREDNISONE20 MG PO (16:36)
[2017-11-17 18:12] VITALS: BP 125/81
== END 2017-11-17 18:14 | disposition home or self-care (01) ==
LOC: EME 12:38
PROVIDERS: Emergency Medicine
DX: D86.0 Sarcoidosis of lung (principal); J44.1 Chronic obstructive pulmonary disease with (acute) exacerbation; F17.200 Nicotine dependence, unspecified, uncomplicated; Z99.81 Dependence on supplemental oxygen; F41.9 Anxiety disorder, unspecified; Z88.5 Allergy status to narcotic agent; Z88.6 Allergy status to analgesic agent
CPT/HCPCS: 36600; 71046; 80048; 81003; 82803; 83735; 84484; 85025; 93005; 94640; 94640 76; 99281; 99284; J7050

== ENCOUNTER 2017-11-27 11:08 | Emergency (ER) | payer OTHER ==
[~2017-11-27] VITALS: Ht 172.7 cm; Wt 119.8 kg
[~2017-11-27 11:08] MED LIST changes: +LIDODERM 5% P1 PATCH TD
[2017-11-27 11:39] LABS: BASOPHIL (%) 0.9 % (0-1); EOSINOPHIL (%) 3.6 % (0-5); EOSINOPHIL COUNT 0.2 K/uL (0-0.3); HEMATOCRIT 38.8 % (36.0-46.0); HEMOGLOBIN 12.1 G/DL (11.9-15.5); IMMATURE GRANULOCYTE (%) 0.2 % (0.0-0.7); LYMPHOCYTE (%) 25.3 % (15-42); LYMPHOCYTE COUNT 1.1 K/uL (1.0-2.8); MCH 29.4 PG (29.0-34.0); MCHC 31.2 G/DL (30.0-36.0); MCV 94.4 FL (83-99); MONOCYTE (%) 21.1 % (3-12); NEUTROPHIL (%) 48.9 % (45-76); NEUTROPHIL COUNT 2.2 K/uL (1.8-6.4); PLATELET COUNT 186 K/uL (156-360); RBC DIS.WIDTH-CV 13.8 % (11.8-14.6); RBC DIS.WIDTH-SD 48.6 % (39-53); RED BLOOD COUNT 4.11 M/uL (3.80-5.20); WHITE BLOOD COUNT 4.5 K/uL (4.1-10.2)
[2017-11-27 11:55] LABS: CHLORIDE 104 mEq/L (99-109); POTASSIUM 4.1 mEq/L (3.7-5.4); SODIUM 140 mEq/L (136-147)
[2017-11-27 11:57] LABS: GLUCOSE 107 mg/dL (70-99)
[2017-11-27 12:01] LABS: CREATININE 0.8 mg/dL (0.6-1.3); GFR ESTIMATE (CALCULATED) > 59 mL/min/; UREA NITROGEN (BUN) 12 mg/dL (9-23)
[2017-11-27] MEDS ORDERED: PREDNISONE50 MG PO (12:53)
[2017-11-27] MEDS ORDERED: ZITHROMAX Z-PA250 MG PO (12:53)
[2017-11-27 13:45] VITALS: BP 136/70
== END 2017-11-27 14:53 | disposition home or self-care (01) ==
LOC: EME 11:08
PROVIDERS: Emergency Medicine
DX: J44.1 Chronic obstructive pulmonary disease with (acute) exacerbation (principal); D86.9 Sarcoidosis, unspecified; F17.200 Nicotine dependence, unspecified, uncomplicated; Z99.81 Dependence on supplemental oxygen; F41.9 Anxiety disorder, unspecified
CPT/HCPCS: 71045; 80048; 85025; 94640; 99281; 99284; J2930

== ENCOUNTER 2017-11-29 13:24 | Emergency (ER) | payer OTHER ==
[~2017-11-29] VITALS: Ht 172.7 cm; Wt 119.1 kg
[2017-11-29] MEDS ORDERED: PERCOCET 5/31 TABLET PO (14:39)
[2017-11-29 15:07] VITALS: BP 119/82
== END 2017-11-29 15:12 | disposition home or self-care (01) ==
LOC: EME 13:24
DX: S83.92XA Sprain of unspecified site of left knee, initial encounter (principal); W10.9XXA Fall (on) (from) unspecified stairs and steps, initial encounter; F11.20 Opioid dependence, uncomplicated; J44.9 Chronic obstructive pulmonary disease, unspecified; M25.762 Osteophyte, left knee; F17.200 Nicotine dependence, unspecified, uncomplicated
CPT/HCPCS: 73564; 73590; 99281; 99284

== ENCOUNTER 2017-12-13 01:03 | Emergency (ER) | payer OTHER ==
[~2017-12-13] VITALS: Ht 172.7 cm; Wt 95.5 kg
[2017-12-13 01:32] LABS: HEMATOCRIT 38.5 % (36.0-46.0); HEMOGLOBIN 12.3 G/DL (11.9-15.5); MCH 30.1 PG (29.0-34.0); MCHC 31.9 G/DL (30.0-36.0); MCV 94.1 FL (83-99); PLATELET COUNT 169 K/uL (156-360); RBC DIS.WIDTH-SD 48.9 % (39-53); RED BLOOD COUNT 4.09 M/uL (3.80-5.20); WHITE BLOOD COUNT 3.8 K/uL (4.1-10.2)
[2017-12-13 01:41] LABS: CARBON DIOXIDE (BICARBONATE) 33.8 MEQ/L (20-31)
[2017-12-13 01:48] LABS: CHLORIDE 107 mEq/L (99-109); POTASSIUM 4.1 mEq/L (3.7-5.4); SODIUM 143 mEq/L (136-147)
[2017-12-13 01:50] LABS: GLUCOSE 114 mg/dL (70-99)
[2017-12-13 01:54] LABS: GFR ESTIMATE (CALCULATED) > 59 mL/min/; UREA NITROGEN (BUN) 22 mg/dL (9-23)
[2017-12-13 01:58] LABS: TROP-I INTERPRETATION NEGATIVE; TROPONIN-I 0.01 ng/mL (0.0-0.30)
[2017-12-13 02:36] LABS: COMMENTS - BLOOD GASES C+A+; DEVICE NC; O2 FLOW 3 L/MIN; SITE RR
[2017-12-13 02:37] LABS: BASE EXCESS -1.4 mEq/L (-3 to +3); BICARBONATE 25.6 mEq/L (22-26); CARBOXY HGB 3.8 % (0-5); METHEMOGLOBIN 0.7 % (0-1.5); PCO2 52 mm Hg (35-45); PO2 76 mm Hg (80-100)
[2017-12-13] MEDS ORDERED: PREDNISONE20 MG PO (02:43)
[2017-12-13 03:22] VITALS: BP 126/62
== END 2017-12-13 03:24 | disposition home or self-care (01) ==
LOC: EME → EDBD 01:03 → EME 01:03
PROVIDERS: Emergency Medicine
DX: J44.1 Chronic obstructive pulmonary disease with (acute) exacerbation (principal); R51 Headache; R94.31 Abnormal electrocardiogram [ECG] [EKG]; Z88.5 Allergy status to narcotic agent; Z88.6 Allergy status to analgesic agent; F17.200 Nicotine dependence, unspecified, uncomplicated
CPT/HCPCS: 36600; 71045; 80048; 82803; 83605; 83880; 84484; 85027; 87040; 93005; 94640; 94799; 99281; 99284; J0780; J1100; J1200; J1885; J7030

== ENCOUNTER 2017-12-16 09:21 | Emergency (ER) | payer OTHER ==
[~2017-12-16] VITALS: Ht 172.7 cm; Wt 121.1 kg
[2017-12-16 09:56] LABS: HEMATOCRIT 37.2 % (36.0-46.0); HEMOGLOBIN 12.1 G/DL (11.9-15.5); MCH 29.9 PG (29.0-34.0); MCHC 32.5 G/DL (30.0-36.0); MCV 91.9 FL (83-99); PLATELET COUNT 168 K/uL (156-360); RBC DIS.WIDTH-CV 13.5 % (11.8-14.6); RBC DIS.WIDTH-SD 46.5 % (39-53); RED BLOOD COUNT 4.05 M/uL (3.80-5.20); WHITE BLOOD COUNT 3.5 K/uL (4.1-10.2)
[2017-12-16 10:05] LABS: CHLORIDE 104 mEq/L (99-109); POTASSIUM 3.7 mEq/L (3.7-5.4); SODIUM 142 mEq/L (136-147)
[2017-12-16 10:07] LABS: GLUCOSE 85 mg/dL (70-99)
[2017-12-16 10:11] LABS: CREATININE 0.8 mg/dL (0.6-1.3); GFR ESTIMATE (CALCULATED) > 59 mL/min/
[2017-12-16 10:12] LABS: UREA NITROGEN (BUN) 16 mg/dL (9-23)
[2017-12-16] MEDS ORDERED: ZITHROMAX Z-PA250 MG PO (10:44)
[2017-12-16] MEDS ORDERED: PREDNISONE50 MG PO (10:44)
[2017-12-16 11:08] VITALS: BP 152/98
== END 2017-12-16 11:09 | disposition home or self-care (01) ==
LOC: EME 09:21
PROVIDERS: Emergency Medicine
DX: J44.1 Chronic obstructive pulmonary disease with (acute) exacerbation (principal); J44.0 Chronic obstructive pulmonary disease with (acute) lower respiratory infection; J20.9 Acute bronchitis, unspecified; F41.9 Anxiety disorder, unspecified; F17.200 Nicotine dependence, unspecified, uncomplicated; Z79.52 Long term (current) use of systemic steroids; Z99.81 Dependence on supplemental oxygen; Z88.6 Allergy status to analgesic agent; Z88.5 Allergy status to narcotic agent
CPT/HCPCS: 71045; 80048; 85027; 94640; 99281; 99284

== ENCOUNTER 2018-01-03 08:30 | Inpatient (IN) | payer OTHER ==
[~2018-01-03] VITALS: Ht 172.7 cm; Wt 117.8 kg
[2018-01-03 09:04] LABS: HEMATOCRIT 39.7 % (36.0-46.0); MCH 30.1 PG (29.0-34.0); MCHC 32.7 G/DL (30.0-36.0); MCV 91.9 FL (83-99); RBC DIS.WIDTH-CV 13.5 % (11.8-14.6); RBC DIS.WIDTH-SD 45.8 % (39-53); RED BLOOD COUNT 4.32 M/uL (3.80-5.20); WHITE BLOOD COUNT 4.4 K/uL (4.1-10.2)
[2018-01-03 09:15] LABS: CHLORIDE 104 mEq/L (99-109); POTASSIUM 4.2 mEq/L (3.7-5.4); SODIUM 143 mEq/L (136-147)
[2018-01-03 09:16] LABS: GLUCOSE 90 mg/dL (70-99)
[2018-01-03 09:20] LABS: CREATININE 0.9 mg/dL (0.6-1.3); GFR ESTIMATE (CALCULATED) > 59 mL/min/
[2018-01-03 09:21] LABS: UREA NITROGEN (BUN) 20 mg/dL (9-23)
[2018-01-03 09:37] LABS: PLAT.SUFFICIENCY ADEQUATE; PLATELET CLUMPS PRESENT - PLATELET COUNT APPEARS ADEQUATE
[2018-01-03 09:55] LABS: PLATELET COUNT UNABLE TO REPORT K/uL (156-360)
[2018-01-03 14:30] VITALS: BP 115/69
[2018-01-03] MEDS ORDERED: SUBOXONE 12 MG1 EACH SL (15:11)
[2018-01-03] MEDS ORDERED: ADVAIR 500/501 DISK IH ×2 (15:11)
[2018-01-03] MEDS ORDERED: ALBUTEROL2.5 MG/3 M IH (15:12)
[2018-01-03 19:17] VITALS: BP 132/60
[2018-01-03 23:20] VITALS: BP 116/66
[2018-01-04] VITALS (7 sets, daily range): BP systolic 125–157; BP diastolic 62–86
[2018-01-05 04:18] VITALS: BP 148/76
[2018-01-05 06:52] LABS: CHLORIDE 103 MEQ/L (99-109); CREATININE 0.7 MG/DL (0.6-1.3); GFR ESTIMATE (CALCULATED) > 59 mL/min/; MAGNESIUM 2.1 mg/dl (1.3-2.7); POTASSIUM 4.8 MEQ/L (3.7-5.4); SODIUM 140 MEQ/L (136-147); UREA NITROGEN (BUN) 22 mg/dL (9-23)
[2018-01-05 06:55] LABS: GLUCOSE 176 mg/dL (70-99)
[2018-01-05 06:56] LABS: HEMOGLOBIN 12.3 G/DL (11.9-15.5); MCH 28.6 PG (29.0-34.0); MCHC 31.5 G/DL (30.0-36.0); MCV 90.7 FL (83-99); RBC DIS.WIDTH-CV 13.5 % (11.8-14.6); RBC DIS.WIDTH-SD 45.7 % (39-53); WHITE BLOOD COUNT 11.7 K/uL (4.1-10.2)
[2018-01-05 07:05] LABS: PLAT.SUFFICIENCY ADEQUATE; PLATELET COUNT 246 K/uL (156-360)
[2018-01-05 07:38] VITALS: BP 142/70
[2018-01-05 11:32] VITALS: BP 134/81
[2018-01-05 15:36] VITALS: BP 138/89
[2018-01-05 20:52] VITALS: BP 139/87
[2018-01-06 00:27] VITALS: BP 131/74
[2018-01-06 03:30] VITALS: BP 137/84
[2018-01-06 07:33] VITALS: BP 137/98
[2018-01-06] MEDS ORDERED: ZESTRIL10 MG PO (11:21)
[2018-01-06] MEDS ORDERED: SPIRIVA1 INHALATI IH (11:21)
[2018-01-06] MEDS ORDERED: BUSPAR5 MG PO (11:21)
[2018-01-06] MEDS ORDERED: MONTELUKAST SOD10 MG PO (11:21)
[2018-01-06] MEDS ORDERED: ALBUTEROL2.5 MG/3 M IH (11:21)
[2018-01-06] MEDS ORDERED: CLARITIN,ALAVAR10 MG PO (11:21)
[2018-01-06] MEDS ORDERED: PREDNISONE20 MG PO (11:21)
[2018-01-06] MEDS ORDERED: ADVAIR 500/501 DISK IH (11:21)
[2018-01-06] MEDS ORDERED: PROVENTIL HFA6.7 GM IH (11:21)
[2018-01-06 12:11] VITALS: BP 139/87
[2018-01-06 16:11] VITALS: BP 173/102
== END 2018-01-06 17:31 | disposition home or self-care (01) | DRG 189 ==
LOC: EME 08:30 → 2EAST 12:44 → 4EAST 12:44 → EDOF 12:44 → ENRESERV 12:48 → 4EAST 14:14 → ENRESERV 01-04 11:44 → 2EAST 01-04 13:26 → ENPENDDIS 01-06 12:47 → 2EAST 01-06 17:31
PROVIDERS: Emergency Medicine; Internal Medicine
DX: J96.21 Acute and chronic respiratory failure with hypoxia (principal); J44.1 Chronic obstructive pulmonary disease with (acute) exacerbation; I11.0 Hypertensive heart disease with heart failure; I50.30 Unspecified diastolic (congestive) heart failure; I27.81 Cor pulmonale (chronic); I27.29 Other secondary pulmonary hypertension; Z99.81 Dependence on supplemental oxygen; F11.20 Opioid dependence, uncomplicated; D86.9 Sarcoidosis, unspecified; F41.9 Anxiety disorder, unspecified; F17.200 Nicotine dependence, unspecified, uncomplicated; E66.01 Morbid (severe) obesity due to excess calories; Z68.29 Body mass index [BMI] 29.0-29.9, adult; Z79.899 Other long term (current) drug therapy
CPT/HCPCS: 71045; 80048; 83735; 83880; 85027; 94640; 94760; 94799; 99281; 99285; J0572; J0574; J1650; J1940; J2920; J2930; J7512

== ENCOUNTER 2018-01-15 11:20 | Emergency (ER) | payer OTHER ==
[~2018-01-15] VITALS: Ht 172.7 cm; Wt 120.9 kg
[2018-01-15 11:26] VITALS: BP 146/71
[2018-01-15 12:10] LABS: BASOPHIL (%) 0.4 % (0-1); EOSINOPHIL (%) 3.1 % (0-5); EOSINOPHIL COUNT 0.3 K/uL (0-0.3); HEMATOCRIT 40.2 % (36.0-46.0); HEMOGLOBIN 12.4 G/DL (11.9-15.5); IMMATURE GRANULOCYTE (%) 0.6 % (0.0-0.7); LYMPHOCYTE (%) 20.5 % (15-42); LYMPHOCYTE COUNT 1.7 K/uL (1.0-2.8); MCH 29.6 PG (29.0-34.0); MCHC 30.8 G/DL (30.0-36.0); MCV 95.9 FL (83-99); MONOCYTE COUNT 0.8 K/uL (0-0.8); NEUTROPHIL (%) 65.4 % (45-76); NEUTROPHIL COUNT 5.4 K/uL (1.8-6.4); PLATELET COUNT 207 K/uL (156-360); RBC DIS.WIDTH-CV 14.1 % (11.8-14.6); RBC DIS.WIDTH-SD 49.8 % (39-53); RED BLOOD COUNT 4.19 M/uL (3.80-5.20); WHITE BLOOD COUNT 8.3 K/uL (4.1-10.2)
[2018-01-15 12:18] LABS: CHLORIDE 101 mEq/L (99-109); POTASSIUM 4.5 mEq/L (3.7-5.4); SODIUM 141 mEq/L (136-147)
[2018-01-15 12:20] LABS: GLUCOSE 99 mg/dL (70-99)
[2018-01-15 12:23] LABS: CREATININE 0.8 mg/dL (0.6-1.3); GFR ESTIMATE (CALCULATED) > 59 mL/min/
[2018-01-15 12:24] LABS: UREA NITROGEN (BUN) 13 mg/dL (9-23)
[2018-01-15] MEDS ORDERED: PREDNISONE50 MG PO (12:51)
== END 2018-01-15 13:17 | disposition home or self-care (01) ==
LOC: EME 11:20
PROVIDERS: Emergency Medicine
DX: J44.1 Chronic obstructive pulmonary disease with (acute) exacerbation (principal); D86.9 Sarcoidosis, unspecified; F41.9 Anxiety disorder, unspecified; F17.200 Nicotine dependence, unspecified, uncomplicated; Z88.5 Allergy status to narcotic agent; Z88.6 Allergy status to analgesic agent
CPT/HCPCS: 71045; 80048; 85025; 94640; 99281; 99284

== ENCOUNTER 2018-02-01 20:27 | Emergency (ER) | payer OTHER ==
[~2018-02-01] VITALS: Ht 172.7 cm; Wt 125.0 kg
[2018-02-01 21:16] LABS: HEMATOCRIT 35.7 % (36.0-46.0); HEMOGLOBIN 11.4 G/DL (11.9-15.5); MCH 29.6 PG (29.0-34.0); MCHC 31.9 G/DL (30.0-36.0); MCV 92.7 FL (83-99); PLATELET COUNT 169 K/uL (156-360); RBC DIS.WIDTH-CV 13.3 % (11.8-14.6); RBC DIS.WIDTH-SD 45.2 % (39-53); RED BLOOD COUNT 3.85 M/uL (3.80-5.20); WHITE BLOOD COUNT 6.8 K/uL (4.1-10.2)
[2018-02-01 21:26] LABS: CHLORIDE 106 mEq/L (99-109); POTASSIUM 4.1 mEq/L (3.7-5.4); SODIUM 142 mEq/L (136-147)
[2018-02-01 21:27] LABS: GLUCOSE 176 mg/dL (70-99)
[2018-02-01 21:31] LABS: CREATININE 0.9 mg/dL (0.6-1.3); GFR ESTIMATE (CALCULATED) > 59 mL/min/
[2018-02-01 21:32] LABS: UREA NITROGEN (BUN) 16 mg/dL (9-23)
[2018-02-01] MEDS ORDERED: PREDNISONE20 MG PO (22:58)
[2018-02-01 23:40] VITALS: BP 132/69
== END 2018-02-01 23:40 | disposition home or self-care (01) ==
LOC: EME 20:27
PROVIDERS: Nurse Practitioner Family
DX: R06.02 Shortness of breath (principal); R60.0 Localized edema; D86.9 Sarcoidosis, unspecified; J44.9 Chronic obstructive pulmonary disease, unspecified; Z99.81 Dependence on supplemental oxygen; F17.200 Nicotine dependence, unspecified, uncomplicated; F41.9 Anxiety disorder, unspecified; Z88.5 Allergy status to narcotic agent; Z88.6 Allergy status to analgesic agent
CPT/HCPCS: 71046; 80048; 85027; 94640; 99281; 99285; J1940; J2930; Q0177